=== PATIENT | female | born 1985 | race African-American/Black ===

== ENCOUNTER 2022-12-11 21:25 | Inpatient (IN) ==
[2022-12-11] MEDS ORDERED: LORazepam 2 MG/1 ML VIAL IV PRN (21:51)
[2022-12-11] MEDS ORDERED: levETIRAcetam 1,000 MG in 0.9 % SODIUM CHLORIDE 100 ML IV STA (21:51)
--- NOTE | 2022-12-11 21:59 | Emergency Department Note ---
History of Present Illness General Chief complaint: Seizure Stated complaint: SEIZURE Time Seen by Provider: 12/11/22 21:44 History of Present Illness This is a 36-year-old female presenting to the emergency department via EMS from home for evaluation of possible seizure episode. Patient is accompanied at bedside by her and friends. Family went to [facility] this evening and had a fairly normal evening. Upon returning home family went to bed, but according to the the patient began shaking while in bed. The tried to hold her, but she was not able to talk and the shaking continued before finally resolving. After the episode the patient was not able to speak and EMS was contacted. On arrival the patient does appear postictal, and is aphasic. She is able to nod her head with yes and no answers, but is not able to speak. The patient has not had any recent URI symptoms. She does not take any medication on a regular basis. She has never had a seizure before. Home Medications Medication Instructions Recorded Confirmed Type No Known Home Medications 12/11/22 12/11/22 History Allergies Allergy/AdvReac Type Severity Reaction Status Date / Time No Known Allergies Allergy Verified 12/11/22 22:21 Past Med/Surg History Medical History No chronic diseases present Surgical History No significant past surgical history Social History Smoking Status: Never smoker Feels Safe at Home: Yes Review of Systems A total of 10 systems reviewed and were otherwise negative Physical Exam Vital Signs Vital Signs - 24 hr 12/11/22 21:20 12/11/22 21:20 12/11/22 21:36 Temperature 37.1 C 37.1 C Temperature Source Oral Oral Pulse Rate 99 H 99 H Pulse Rate [Apical] 96 H Respiratory Rate 22 16 Respiratory Effort / Characteristics Non-Labored Spontaneous Non-Labored Spontaneous Respiratory Depth Normal Normal Blood Pressure 150/91 H Blood Pressure [Right Arm] 150/91 H Blood Pressure Mean 110 Blood Pressure Mean [Right Arm] 110 Pulse Oximetry 97 97 Oxygen Delivery Method Room Air Room Air Sepsis Recent Fever Within 48 Hours No Sepsis New/Unexplained Change in Mental Status No Sepsis Action Taken by Nursing No Action Required 12/11/22 23:01 12/11/22 23:12 12/11/22 23:12 Temperature Temperature Source Pulse Rate 84 87 Pulse Rate [Apical] Respiratory Rate 13 18 Respiratory Effort / Characteristics Respiratory Depth Blood Pressure 103/63 Blood Pressure [Right Arm] Blood Pressure Mean 76 Blood Pressure Mean [Right Arm] Pulse Oximetry Oxygen Delivery Method Sepsis Recent Fever Within 48 Hours Sepsis New/Unexplained Change in Mental Status Sepsis Action Taken by Nursing 12/11/22 23:15 12/11/22 23:15 12/11/22 23:30 Temperature Temperature Source Pulse Rate 90 Pulse Rate [Apical] Respiratory Rate 14 Respiratory Effort / Characteristics Respiratory Depth Blood Pressure 115/51 L 90/36 L Blood Pressure [Right Arm] Blood Pressure Mean 72 54 Blood Pressure Mean [Right Arm] Pulse Oximetry Oxygen Delivery Method Sepsis Recent Fever Within 48 Hours Sepsis New/Unexplained Change in Mental Status Sepsis Action Taken by Nursing 12/11/22 23:30 12/11/22 23:45 12/11/22 23:45 Temperature Temperature Source Pulse Rate 90 87 Pulse Rate [Apical] Respiratory Rate 14 19 Respiratory Effort / Characteristics Respiratory Depth Blood Pressure 92/58 L Blood Pressure [Right Arm] Blood Pressure Mean 69 Blood Pressure Mean [Right Arm] Pulse Oximetry Oxygen Delivery Method Sepsis Recent Fever Within 48 Hours Sepsis New/Unexplained Change in Mental Status Sepsis Action Taken by Nursing 12/12/22 00:05 12/12/22 00:15 12/12/22 00:15 Temperature Temperature Source Pulse Rate 82 81 Pulse Rate [Apical] Respiratory Rate 12 12 Respiratory Effort / Characteristics Respiratory Depth Blood Pressure 98/50 L Blood Pressure [Right Arm] Blood Pressure Mean 66 Blood Pressure Mean [Right Arm] Pulse Oximetry Oxygen Delivery Method Sepsis Recent Fever Within 48 Hours Sepsis New/Unexplained Change in Mental Status Sepsis Action Taken by Nursing 12/12/22 01:33 12/12/22 01:26 12/12/22 01:30 Temperature Temperature Source Pulse Rate 82 93 H Pulse Rate [Apical] Respiratory Rate 20 Respiratory Effort / Characteristics Respiratory Depth Blood Pressure 128/69 Blood Pressure [Right Arm] Blood Pressure Mean 88 Blood Pressure Mean [Right Arm] Pulse Oximetry Oxygen Delivery Method Sepsis Recent Fever Within 48 Hours Sepsis New/Unexplained Change in Mental Status Sepsis Action Taken by Nursing 12/12/22 01:30 Temperature Temperature Source Pulse Rate 76 Pulse Rate [Apical] Respiratory Rate 14 Respiratory Effort / Characteristics Respiratory Depth Blood Pressure Blood Pressure [Right Arm] Blood Pressure Mean Blood Pressure Mean [Right Arm] Pulse Oximetry Oxygen Delivery Method Sepsis Recent Fever Within 48 Hours Sepsis New/Unexplained Change in Mental Status Sepsis Action Taken by Nursing VITALS: Vitals are noted on the nurse's note and reviewed by myself. Vital signs stable. GENERAL: Black female who is unable to answer questions verbally. She is able to shake her head to yes and no answers. She does appear postictal. HEAD: Normocephalic atraumatic. EARS: External ear normal. External auditory canals clear, tympanic membranes pearly buck without erythema or effusion bilaterally. EYES: Pupils equal round and reactive to light and accommodation. Conjunctivae without injection, sclerae without icterus. Extraocular movements intact. NOSE: Patent, turbinates without inflammation or discharge. No tongue injury. MOUTH: Mucous membranes moist. Tonsils are not enlarged. Pharynx without erythema, blood, or exudate. Uvula midline. Airway patent. NECK: Supple without nuchal rigidity. No lymphadenopathy. No thyromegaly. Cervical spine is nontender. HEART: Regular rate and rhythm without murmurs gallops or rubs. LUNGS: Clear to auscultation bilaterally without wheezes, rales or rhonchi. No retractions or accessory muscle use. ABDOMEN: Positive normal bowel sounds x 4. Soft, nontender, without masses or organomegaly. No guarding or rebound tenderness. MUSCULOSKELETAL: No muscle atrophy, erythema, or edema noted. NEURO: Patient appears post ictal, but awake. Course Administered Medications Discontinued Medications Gadobutrol (Gadobutrol 65ml Vial) 11 ml IV ONCE ONE Stop: 12/12/22 01:14 Last Admin: 12/12/22 01:14 Dose: 11 ml Documented By: GLENN Sodium Chloride (Nss 1000ml) 1,000 mls @ 999 mls/hr IV .[id number] CHAKA Stop: 12/11/22 23:00 Last Infusion: 12/12/22 00:06 Dose: 0 mls/hr Documented By: Admin: 12/11/22 22:08 Dose: 999 mls/hr Documented By: EFRAÍN Levetiracetam 1,000 mg/ Sodium (Chloride) 110 mls @ 440 mls/hr IV NOW STA Stop: 12/11/22 22:05 Last Infusion: 12/11/22 22:51 Dose: 0 mls/hr Documented By: Admin: 12/11/22 22:07 Dose: 440 mls/hr Documented By: EFRAÍN Medical Decision Making Differential Diagnosis Differential diagnosis: Etiologies such as syncope, seizure, vasovagal event, infection, anemia, hypoglycemia, hypovolemia, electrolyte abnormalities, dysrhythmias, cardiac ischemia, cardiac tamponade, valvular heart disease, structural heart disease, seizure, vascular stenosis/dissection, pulmonary embolism, intracerebral event, toxicological process, neurologic event, as well as others were entertained. Laboratory Data 12/11/22 21:37 12/11/22 21:37 Lab Results 12/11/22 12/11/22 12/11/22 Range/Units 21:37 21:37 21:37 WBC 6.83 (4.8-10.8) K/ul RBC 4.22 (4.20-5.40) M/uL Hgb 11.9 L (12.0-16.0) g/dl Hct 37.3 (37.0-47.0) % MCV 88.4 (80.0-100.0) fL MCH 28.2 (25.0-34.0) pg MCHC 31.9 L (32.0-36.0) g/dL RDW Std Deviation 41.1 (36.4-46.3) fL RDW Coeff of Rodney 12.7 (11.5-14.5) % Plt Count 343 (130-400) K/uL MPV 9.8 (9.4-12.4) fL Immature Gran % (Auto) 0.4 % Neut % (Auto) 40.4 % Lymph % (Auto) 45.1 % Barry % (Auto) 11.6 % Eos % (Auto) 1.6 % Baso % (Auto) 0.9 % Neut # (Auto) 2.76 (1.40-6.50) K/uL Lymph # (Auto) 3.08 (1.2-3.4) K/uL Barry # (Auto) 0.79 H (0.11-0.59) K/uL Eos # (Auto) 0.11 (0-0.50) K/uL Baso # (Auto) 0.06 (0-0.2) K/uL Immature Gran # (Auto) 0.03 (0.01-0.20) K/uL Sodium 137 (136-145) mmol/L Potassium 3.7 (3.5-5.1) mmol/L Chloride 103 (98-107) mmol/L Carbon Dioxide 22 (21-32) mmol/L Anion Gap 12 H (3-11) BUN 12 (6-23) mg/dl Creatinine 0.75 (0.6-1.2) mg/dl Est Cr Clr Drug Dosing Not Reportable Est GFR ( Amer) 117.2 ml/min Est GFR (Non-Af Amer) 101.1 ml/min BUN/Creatinine Ratio 16.0 (10-20) Glucose 82 (70-99(Fasting)) mg/dl Lactate (0.4-2.0) mmol/L Calcium 9.0 (8.5-10.1) mg/dl Phosphorus 2.7 (2.5-4.9) mg/dl Magnesium 2.1 (1.7-2.4) mg/dl Total Bilirubin 0.7 (0.2-1.0) mg/dl AST 27 (13-39) U/L ALT 38 (7-52) U/L Alkaline Phosphatase 74 (34-104) U/L Lactate Dehydrogenase (86-244) U/L Total Creatine Kinase 456 H (26-192) U/L Troponin I High Sens 2.6 (0-14) pg/ml Total Protein 8.3 (6.0-8.3) gm/dl Albumin 4.6 (3.4-5.0) gm/dl Globulin 3.7 (2.5-4.0) gm/dl Albumin/Globulin Ratio 1.2 (0.9-2) TSH (0.300-4.500) uIu/ml HCG, Qual (Negative) Urine Color Urine Appearance (Clear) Urine pH (4.5-7.5) Ur Specific [place] (1.000-1.030) Urine Protein (Negative) Urine Glucose (UA) (Negative) Urine Ketones (Negative) Urine Blood (Negative) Urine Nitrite (Negative) Urine Bilirubin (Negative) Urine Urobilinogen (Negative) Ur Leukocyte Esterase (Negative) Urine WBC (Auto) (0-5) /hpf Urine RBC (Auto) (0-4) /hpf U Hyaline Cast (Auto) (0-5) /lpf U Epithel Cells (Auto) (0-5) /lpf Urine Bacteria (Auto) (Negative) Urine Opiates Screen (Neg) Ur Methadone, Qual (Neg) Urine Barbiturates (Neg) Ur Phencyclidine (PCP) (Neg) U Amphetamin/Meth Scrn (Neg) MDMA (Ecstasy) Screen (Neg) U Benzodiazepines Scrn (Neg) Ur Cocaine Metabolite (Neg) U Marijuana (THC) Screen (Neg) Ethyl Alcohol mg/dL < 10.0 (<10.0) mg/dl Adenovirus (PCR) (NotDetected) B. pertussis DNA (PCR) (NotDetected) B.parapertussis DNA PCR (NotDetected) Lyme Disease IgG Ab (Negative) Lyme Disease IgM Ab (Negative) C. pneumoniae DNA (PCR) (NotDetected) Coronavirus OC43 (PCR) (NotDetected) Coronavirus HKU1 (PCR) (NotDetected) Coronavirus 229E (PCR) (NotDetected) SARS-CoV-2 (PCR) (NotDetected) Coronavirus NL63 (PCR) (NotDetected) Human Metapneumovir PCR (NotDetected) Influenza Type A (PCR) (NotDetected) Influenza Type B (PCR) (NotDetected) M. pneumoniae (PCR) (NotDetected) Parainfluenza 1 (PCR) (NotDetected) Parainfluenza 2 (PCR) (NotDetected) Parainfluenza 3 (PCR) (NotDetected) Parainfluenza 4 (PCR) (NotDetected) RSV (PCR) (NotDetected) Entero/Rhino (PCR) (NotDetected) 12/11/22 12/11/22 12/11/22 Range/Units 21:37 21:37 21:37 WBC (4.8-10.8) K/ul RBC (4.20-5.40) M/uL Hgb (12.0-16.0) g/dl Hct (37.0-47.0) % MCV (80.0-100.0) fL MCH (25.0-34.0) pg MCHC (32.0-36.0) g/dL RDW Std Deviation (36.4-46.3) fL RDW Coeff of Rodney (11.5-14.5) % Plt Count (130-400) K/uL MPV (9.4-12.4) fL Immature Gran % (Auto) % Neut % (Auto) % Lymph % (Auto) % Barry % (Auto) % Eos % (Auto) % Baso % (Auto) % Neut # (Auto) (1.40-6.50) K/uL Lymph # (Auto) (1.2-3.4) K/uL Barry # (Auto) (0.11-0.59) K/uL Eos # (Auto) (0-0.50) K/uL Baso # (Auto) (0-0.2) K/uL Immature Gran # (Auto) (0.01-0.20) K/uL Sodium (136-145) mmol/L Potassium (3.5-5.1) mmol/L Chloride (98-107) mmol/L Carbon Dioxide (21-32) mmol/L Anion Gap (3-11) BUN (6-23) mg/dl Creatinine (0.6-1.2) mg/dl Est Cr Clr Drug Dosing Est GFR ( Amer) ml/min Est GFR (Non-Af Amer) ml/min BUN/Creatinine Ratio (10-20) Glucose (70-99(Fasting)) mg/dl Lactate (0.4-2.0) mmol/L Calcium (8.5-10.1) mg/dl Phosphorus (2.5-4.9) mg/dl Magnesium (1.7-2.4) mg/dl Total Bilirubin (0.2-1.0) mg/dl AST (13-39) U/L ALT (7-52) U/L Alkaline Phosphatase (34-104) U/L Lactate Dehydrogenase 197 (86-244) U/L Total Creatine Kinase (26-192) U/L Troponin I High Sens (0-14) pg/ml Total Protein (6.0-8.3) gm/dl Albumin (3.4-5.0) gm/dl Globulin (2.5-4.0) gm/dl Albumin/Globulin Ratio (0.9-2) TSH 1.408 (0.300-4.500) uIu/ml HCG, Qual Negative (Negative) Urine Color Urine Appearance (Clear) Urine pH (4.5-7.5) Ur Specific [place] (1.000-1.030) Urine Protein (Negative) Urine Glucose (UA) (Negative) Urine Ketones (Negative) Urine Blood (Negative) Urine Nitrite (Negative) Urine Bilirubin (Negative) Urine Urobilinogen (Negative) Ur Leukocyte Esterase (Negative) Urine WBC (Auto) (0-5) /hpf Urine RBC (Auto) (0-4) /hpf U Hyaline Cast (Auto) (0-5) /lpf U Epithel Cells (Auto) (0-5) /lpf Urine Bacteria (Auto) (Negative) Urine Opiates Screen (Neg) Ur Methadone, Qual (Neg) Urine Barbiturates (Neg) Ur Phencyclidine (PCP) (Neg) U Amphetamin/Meth Scrn (Neg) MDMA (Ecstasy) Screen (Neg) U Benzodiazepines Scrn (Neg) Ur Cocaine Metabolite (Neg) U Marijuana (THC) Screen (Neg) Ethyl Alcohol mg/dL (<10.0) mg/dl Adenovirus (PCR) (NotDetected) B. pertussis DNA (PCR) (NotDetected) B.parapertussis DNA PCR (NotDetected) Lyme Disease IgG Ab Negative (Negative) Lyme Disease IgM Ab Negative (Negative) C. pneumoniae DNA (PCR) (NotDetected) Coronavirus OC43 (PCR) (NotDetected) Coronavirus HKU1 (PCR) (NotDetected) Coronavirus 229E (PCR) (NotDetected) SARS-CoV-2 (PCR) (NotDetected) Coronavirus NL63 (PCR) (NotDetected) Human Metapneumovir PCR (NotDetected) Influenza Type A (PCR) (NotDetected) Influenza Type B (PCR) (NotDetected) M. pneumoniae (PCR) (NotDetected) Parainfluenza 1 (PCR) (NotDetected) Parainfluenza 2 (PCR) (NotDetected) Parainfluenza 3 (PCR) (NotDetected) Parainfluenza 4 (PCR) (NotDetected) RSV (PCR) (NotDetected) Entero/Rhino (PCR) (NotDetected) 12/11/22 12/11/22 12/11/22 Range/Units 22:19 22:19 23:19 WBC (4.8-10.8) K/ul RBC (4.20-5.40) M/uL Hgb (12.0-16.0) g/dl Hct (37.0-47.0) % MCV (80.0-100.0) fL MCH (25.0-34.0) pg MCHC (32.0-36.0) g/dL RDW Std Deviation (36.4-46.3) fL RDW Coeff of Rodney (11.5-14.5) % Plt Count (130-400) K/uL MPV (9.4-12.4) fL Immature Gran % (Auto) % Neut % (Auto) % Lymph % (Auto) % Barry % (Auto) % Eos % (Auto) % Baso % (Auto) % Neut # (Auto) (1.40-6.50) K/uL Lymph # (Auto) (1.2-3.4) K/uL Barry # (Auto) (0.11-0.59) K/uL Eos # (Auto) (0-0.50) K/uL Baso # (Auto) (0-0.2) K/uL Immature Gran # (Auto) (0.01-0.20) K/uL Sodium (136-145) mmol/L Potassium (3.5-5.1) mmol/L Chloride (98-107) mmol/L Carbon Dioxide (21-32) mmol/L Anion Gap (3-11) BUN (6-23) mg/dl Creatinine (0.6-1.2) mg/dl Est Cr Clr Drug Dosing Est GFR ( Amer) ml/min Est GFR (Non-Af Amer) ml/min BUN/Creatinine Ratio (10-20) Glucose (70-99(Fasting)) mg/dl Lactate 2.8 H* 2.2 H* (0.4-2.0) mmol/L Calcium (8.5-10.1) mg/dl Phosphorus (2.5-4.9) mg/dl Magnesium (1.7-2.4) mg/dl Total Bilirubin (0.2-1.0) mg/dl AST (13-39) U/L ALT (7-52) U/L Alkaline Phosphatase (34-104) U/L Lactate Dehydrogenase (86-244) U/L Total Creatine Kinase (26-192) U/L Troponin I High Sens (0-14) pg/ml Total Protein (6.0-8.3) gm/dl Albumin (3.4-5.0) gm/dl Globulin (2.5-4.0) gm/dl Albumin/Globulin Ratio (0.9-2) TSH (0.300-4.500) uIu/ml HCG, Qual (Negative) Urine Color Urine Appearance (Clear) Urine pH (4.5-7.5) Ur Specific [place] (1.000-1.030) Urine Protein (Negative) Urine Glucose (UA) (Negative) Urine Ketones (Negative) Urine Blood (Negative) Urine Nitrite (Negative) Urine Bilirubin (Negative) Urine Urobilinogen (Negative) Ur Leukocyte Esterase (Negative) Urine WBC (Auto) (0-5) /hpf Urine RBC (Auto) (0-4) /hpf U Hyaline Cast (Auto) (0-5) /lpf U Epithel Cells (Auto) (0-5) /lpf Urine Bacteria (Auto) (Negative) Urine Opiates Screen (Neg) Ur Methadone, Qual (Neg) Urine Barbiturates (Neg) Ur Phencyclidine (PCP) (Neg) U Amphetamin/Meth Scrn (Neg) MDMA (Ecstasy) Screen (Neg) U Benzodiazepines Scrn (Neg) Ur Cocaine Metabolite (Neg) U Marijuana (THC) Screen (Neg) Ethyl Alcohol mg/dL (<10.0) mg/dl Adenovirus (PCR) Not Detected (NotDetected) B. pertussis DNA (PCR) Not Detected (NotDetected) B.parapertussis DNA PCR Not Detected (NotDetected) Lyme Disease IgG Ab (Negative) Lyme Disease IgM Ab (Negative) C. pneumoniae DNA (PCR) Not Detected (NotDetected) Coronavirus OC43 (PCR) Not Detected (NotDetected) Coronavirus HKU1 (PCR) Not Detected (NotDetected) Coronavirus 229E (PCR) Not Detected (NotDetected) SARS-CoV-2 (PCR) Not Detected (NotDetected) Coronavirus NL63 (PCR) Not Detected (NotDetected) Human Metapneumovir PCR Not Detected (NotDetected) Influenza Type A (PCR) Not Detected (NotDetected) Influenza Type B (PCR) Not Detected (NotDetected) M. pneumoniae (PCR) Not Detected (NotDetected) Parainfluenza 1 (PCR) Not Detected (NotDetected) Parainfluenza 2 (PCR) Not Detected (NotDetected) Parainfluenza 3 (PCR) Not Detected (NotDetected) Parainfluenza 4 (PCR) Not Detected (NotDetected) RSV (PCR) Not Detected (NotDetected) Entero/Rhino (PCR) Not Detected (NotDetected) 12/12/22 12/12/22 Range/Units 00:05 00:05 WBC (4.8-10.8) K/ul RBC (4.20-5.40) M/uL Hgb (12.0-16.0) g/dl Hct (37.0-47.0) % MCV (80.0-100.0) fL MCH (25.0-34.0) pg MCHC (32.0-36.0) g/dL RDW Std Deviation (36.4-46.3) fL RDW Coeff of Rodney (11.5-14.5) % Plt Count (130-400) K/uL MPV (9.4-12.4) fL Immature Gran % (Auto) % Neut % (Auto) % Lymph % (Auto) % Barry % (Auto) % Eos % (Auto) % Baso % (Auto) % Neut # (Auto) (1.40-6.50) K/uL Lymph # (Auto) (1.2-3.4) K/uL Barry # (Auto) (0.11-0.59) K/uL Eos # (Auto) (0-0.50) K/uL Baso # (Auto) (0-0.2) K/uL Immature Gran # (Auto) (0.01-0.20) K/uL Sodium (136-145) mmol/L Potassium (3.5-5.1) mmol/L Chloride (98-107) mmol/L Carbon Dioxide (21-32) mmol/L Anion Gap (3-11) BUN (6-23) mg/dl Creatinine (0.6-1.2) mg/dl Est Cr Clr Drug Dosing Est GFR ( Amer) ml/min Est GFR (Non-Af Amer) ml/min BUN/Creatinine Ratio (10-20) Glucose (70-99(Fasting)) mg/dl Lactate (0.4-2.0) mmol/L Calcium (8.5-10.1) mg/dl Phosphorus (2.5-4.9) mg/dl Magnesium (1.7-2.4) mg/dl Total Bilirubin (0.2-1.0) mg/dl AST (13-39) U/L ALT (7-52) U/L Alkaline Phosphatase (34-104) U/L Lactate Dehydrogenase (86-244) U/L Total Creatine Kinase (26-192) U/L Troponin I High Sens (0-14) pg/ml Total Protein (6.0-8.3) gm/dl Albumin (3.4-5.0) gm/dl Globulin (2.5-4.0) gm/dl Albumin/Globulin Ratio (0.9-2) TSH (0.300-4.500) uIu/ml HCG, Qual (Negative) Urine Color Yellow Urine Appearance Clear (Clear) Urine pH 7.0 (4.5-7.5) Ur Specific [place] 1.012 (1.000-1.030) Urine Protein Trace H (Negative) Urine Glucose (UA) Negative (Negative) Urine Ketones Negative (Negative) Urine Blood Trace H (Negative) Urine Nitrite Positive A (Negative) Urine Bilirubin Negative (Negative) Urine Urobilinogen Negative (Negative) Ur Leukocyte Esterase Trace H (Negative) Urine WBC (Auto) 1-5 (0-5) /hpf Urine RBC (Auto) 0-4 (0-4) /hpf U Hyaline Cast (Auto) 1-5 (0-5) /lpf U Epithel Cells (Auto) 20-30 H (0-5) /lpf Urine Bacteria (Auto) 4+ H (Negative) Urine Opiates Screen Neg (Neg) Ur Methadone, Qual Neg (Neg) Urine Barbiturates Neg (Neg) Ur Phencyclidine (PCP) Neg (Neg) U Amphetamin/Meth Scrn Neg (Neg) MDMA (Ecstasy) Screen Neg (Neg) U Benzodiazepines Scrn Neg (Neg) Ur Cocaine Metabolite Neg (Neg) U Marijuana (THC) Screen Neg (Neg) Ethyl Alcohol mg/dL (<10.0) mg/dl Adenovirus (PCR) (NotDetected) B. pertussis DNA (PCR) (NotDetected) B.parapertussis DNA PCR (NotDetected) Lyme Disease IgG Ab (Negative) Lyme Disease IgM Ab (Negative) C. pneumoniae DNA (PCR) (NotDetected) Coronavirus OC43 (PCR) (NotDetected) Coronavirus HKU1 (PCR) (NotDetected) Coronavirus 229E (PCR) (NotDetected) SARS-CoV-2 (PCR) (NotDetected) Coronavirus NL63 (PCR) (NotDetected) Human Metapneumovir PCR (NotDetected) Influenza Type A (PCR) (NotDetected) Influenza Type B (PCR) (NotDetected) M. pneumoniae (PCR) (NotDetected) Parainfluenza 1 (PCR) (NotDetected) Parainfluenza 2 (PCR) (NotDetected) Parainfluenza 3 (PCR) (NotDetected) Parainfluenza 4 (PCR) (NotDetected) RSV (PCR) (NotDetected) Entero/Rhino (PCR) (NotDetected) Imaging Data Radiologist's Impression: Head CT 12/11/22 21:51 Exam(s): CT HEAD Without Contrast EXAM: CT Head Without Intravenous Contrast CLINICAL HISTORY: Reason for exam: Seizure. Post ictal.. TECHNIQUE: Axial computed tomography images of the head/brain without intravenous contrast. COMPARISON: No relevant prior studies available. FINDINGS: Brain: Remote ischemic injuries of the right parietal lobe with encephalomalacia and gliosis, which likely represents the nidus for seizure activity. No hemorrhage. No significant white matter disease. No edema. Ventricles: Unremarkable. No ventriculomegaly. Bones/joints: Unremarkable. No acute fracture. Soft tissues: Unremarkable. Sinuses: Chronic left maxillary sinusitis. No acute sinusitis. Mastoid air cells: Unremarkable as visualized. No mastoid effusion. IMPRESSION: No evidence of acute intracranial pathology. Remote ischemic injuries of the right parietal lobe with encephalomalacia and gliosis, likely representing the nidus of seizure activity. Electronically signed by: Andria Oshea MD 12/11/22 23:45 PM Brain MRI 12/12/22 00:11 Exam(s): MRI HEAD W/WO Contrast IV Amt: 11cc gadavist EXAM: MR Head Without and With Intravenous Contrast CLINICAL HISTORY: Reason for exam: Seizure. TECHNIQUE: Magnetic resonance images of the head/brain without and with intravenous contrast in multiple planes. CONTRAST: Patient received 11cc gadavist of IV contrast COMPARISON: Comparison is made to prior noncontrast head CT from December 11, 2022. FINDINGS: Brain: Remote ischemic injuries of the right temporal, parietal and occipital lobes with encephalomalacia and gliosis. No mass. No hemorrhage. No acute infarct. No evidence of abnormal enhancement. Ventricles: Unremarkable. No ventriculomegaly. Bones/joints: Unremarkable. Sinuses: Chronic left maxillary and ethmoid sinusitis. No acute sinusitis. Mastoid air cells: Unremarkable as visualized. No mastoid effusion. Orbits: Unremarkable as visualized. IMPRESSION: Normal no evidence of acute intracranial pathology. Remote ischemic injuries of the right parietal, occipital and temporal lobes with encephalomalacia and gliosis. Electronically signed by: Andria Oshea MD 12/12/22 01:44 AM [facility] Narrative Physical exam and history were performed. Nursing notes, EMR, and Medication List were personally reviewed. No social concerns were identified as barriers to patients care. Patient appears to have had a seizure prehospital. She arrives via EMS and appears postictal on my arrival to the room. History is primarily provided by the . IV access was established and labs were obtained. Patient was cared for under seizure precautions. She was given IV Keppra and as needed Ativan was ordered. Patient was hydrated with normal saline. An order was placed for continuous cardiac monitoring. The monitor shows a rate of 82 with normal sinus rhythm. Patient's blood work is as above and was reviewed. She does not have a significantly elevated white blood cell count, gross anemia, bandemia, or significant electrolyte imbalance. Transaminases are not diagnostic. Lactic is elevated at 2.8. CK is slightly elevated at over 400. Troponin is negative. Bio fire is negative. CT scan was performed and informally evaluated by myself while formally being read by radiology. CT scan is concerning for old ischemic findings that may be the cause of her stroke. Case was discussed with my attending, Dr. Rojas, who remained involved in care and decision making. Additionally we did reach out to Dr. Stephen, neurology, who does recommend MRI with and without contrast. MRI was performed and is essentially unchanged from the CT. The case was discussed with the [facility] ospitalist team as the patient does not appear well for discharge home. Please see their dictation for further patient course, plan, and disposition. The chart was completed utilizing [employer] Voice Recognition Software. Grammatical errors, random word insertions, pronoun errors, and incomplete sentences are an occasional consequence of this system due to software limitations, ambient noise, and hardware issues. Any formal questions or concerns about the content, text, or information contained within the body of this dictation should be directly addressed to the provider for clarification. . Impression & Plan New onset seizure, Post-ictal state Discharge Plan Visit Data Chief Complaint: Seizure Stated Complaint: SEIZURE ED Provider: Hammad Doll ED Midlevel Provider: Tal Christiansen Discharge Problem: New onset seizure, Post-ictal state Forms Stand Alone Forms: [employer] Prescriptions Prescriptions: No Action No Known Home Medications Referrals Referrals: PCP,NO [Physician] -
[2022-12-11] MEDS ORDERED: SODIUM CHLORIDE 0.9% 1000ML 1,000 ML IV SCH (22:00)
[2022-12-11 22:25] LABS: Albumin Level 4.6 gm/dl (3.4-5.0); Anion Gap 12 (3-11); Bilirubin,Total 0.7 mg/dl (0.2-1.0); Carbon Dioxide 22 mmol/L (21-32); Chloride 103 mmol/L (98-107); Magnesium 2.1 mg/dl (1.7-2.4); Potassium 3.7 mmol/L (3.5-5.1); Sodium 137 mmol/L (136-145)
[2022-12-11 22:29] LABS: Pregnancy Test, Serum Negative (Negative)
[2022-12-11 22:31] LABS: Alanine Aminotransferase 38 U/L (7-52); Albumin Globulin Ratio 1.2 (0.9-2); Alkaline Phosphatase 74 U/L (34-104); Aspartate Aminotransferase 27 U/L (13-39); Blood Urea Nitrogen 12 mg/dl (6-23); Creatine Kinase 456 U/L (26-192); Est GFR (African American) 117.2 ml/min; Est GFR (Non-African American) 101.1 ml/min; Globulin 3.7 gm/dl (2.5-4.0); Glucose 82 mg/dl (70-99(Fasting)); Phosphorus 2.7 mg/dl (2.5-4.9); Total Protein 8.3 gm/dl (6.0-8.3)
[2022-12-11 22:52] LABS: Troponin I High Sensitivity 2.6 pg/ml (0-14)
[2022-12-11 22:53] LABS: Lyme Ab IgG w/WB Rflx Negative (Negative); Lyme Ab IgM w/WB Rflx Negative (Negative)
[2022-12-11 22:56] LABS: Basophils # (auto) 0.06 K/uL (0-0.2); Basophils % (auto) 0.9 %; Eosinophils # (auto) 0.11 K/uL (0-0.50); Eosinophils % (auto) 1.6 %; Hematocrit (blood only) 37.3 % (37.0-47.0); Hemoglobin 11.9 g/dl (12.0-16.0); Immature Granulocytes # (auto) 0.03 K/uL (0.01-0.20); Immature Granulocytes % (auto) 0.4 %; Lymphocytes # (auto) 3.08 K/uL (1.2-3.4); Lymphocytes % (auto) 45.1 %; Mean Corpuscular Hemoglobin 28.2 pg (25.0-34.0); Mean Corpuscular Hgb Conc 31.9 g/dL (32.0-36.0); Mean Corpuscular Volume 88.4 fL (80.0-100.0); Mean Platelet Volume 9.8 fL (9.4-12.4); Monocytes # (auto) 0.79 K/uL (0.11-0.59); Monocytes % (auto) 11.6 %; Neutrophils # (auto) 2.76 K/uL (1.40-6.50); Neutrophils % (auto) 40.4 %; Platelet Count 343 K/uL (130-400); RDW Coefficient of Variation 12.7 % (11.5-14.5); RDW Standard Deviation 41.1 fL (36.4-46.3); Red Blood Count 4.22 M/uL (4.20-5.40); White Blood Count 6.83 K/ul (4.8-10.8)
[2022-12-11 23:28] LABS: Adenovirus PCR Not Detected (NotDetected); Bordetella parapertussis PCR Not Detected (NotDetected); Bordetella pertussis PCR Not Detected (NotDetected); Chlamydia pneumoniae PCR Not Detected (NotDetected); Coronavirus 229E PCR Not Detected (NotDetected); Coronavirus CoV-2 (COVID19)PCR Not Detected (NotDetected); Coronavirus HKU1 PCR Not Detected (NotDetected); Coronavirus NL63 PCR Not Detected (NotDetected); Coronavirus OC43PCR Not Detected (NotDetected); Human Metapneumovirus PCR Not Detected (NotDetected); Influenza A PCR Not Detected (NotDetected); Influenza B PCR Not Detected (NotDetected); Mycoplasma pneumoniae PCR Not Detected (NotDetected); Parainfluenza Virus 1 PCR Not Detected (NotDetected); Parainfluenza Virus 2 PCR Not Detected (NotDetected); Parainfluenza Virus 3 PCR Not Detected (NotDetected); Parainfluenza Virus 4 PCR Not Detected (NotDetected); Respiratory Syncytial VirusPCR Not Detected (NotDetected); Rhinovirus/Enterovirus PCR Not Detected (NotDetected)
--- NOTE | 2022-12-11 23:46 | CT Scan Report ---
Exam(s): CT HEAD Without Contrast EXAM: CT Head Without Intravenous Contrast CLINICAL HISTORY: Reason for exam: Seizure. Post ictal.. TECHNIQUE: Axial computed tomography images of the head/brain without intravenous contrast. COMPARISON: No relevant prior studies available. FINDINGS: Brain: Remote ischemic injuries of the right parietal lobe with encephalomalacia and gliosis, which likely represents the nidus for seizure activity. No hemorrhage. No significant white matter disease. No edema. Ventricles: Unremarkable. No ventriculomegaly. Bones/joints: Unremarkable. No acute fracture. Soft tissues: Unremarkable. Sinuses: Chronic left maxillary sinusitis. No acute sinusitis. Mastoid air cells: Unremarkable as visualized. No mastoid effusion. IMPRESSION: No evidence of acute intracranial pathology. Remote ischemic injuries of the right parietal lobe with encephalomalacia and gliosis, likely representing the nidus of seizure activity. Electronically signed by: Andria Oshea MD 12/11/22 23:45 PM
[2022-12-12 00:37] LABS: Appearance Urine Clear (Clear); Bacteria Urine Automated 4+ (Negative); Bilirubin Urine Negative (Negative); Blood Urine Trace (Negative); Color Urine Yellow; Epithelial Cell Urine Auto 20-30 /lpf (0-5); Glucose Urine UA Negative (Negative); Ketones Urine Negative (Negative); Leukocyte Esterase Urine Trace (Negative); Nitrite Urine Positive (Negative); Protein Urine Trace (Negative); RBC Urine Automated 0-4 /hpf (0-4); Specific Gravity Urine 1.012 (1.000-1.030); Urobilinogen Urine Negative (Negative)
[2022-12-12 00:53] LABS: Amphetamines+Metham, Urine Neg (Neg); Barbiturates, Urine Neg (Neg); Benzodiazepine, Urine Neg (Neg); Cocaine, Urine Neg (Neg); MDMA (Ecstacy), Urine Neg (Neg); Methadone, Urine Neg (Neg); Opiate, Urine Neg (Neg); Phencyclidine, Urine Neg (Neg)
[2022-12-12] MEDS ORDERED: GADOBUTROL 65ML VIAL IV ONE (01:13)
--- NOTE | 2022-12-12 01:45 | Magnetic Resonance Report ---
Exam(s): MRI HEAD W/WO Contrast IV Amt: 11cc gadavist EXAM: MR Head Without and With Intravenous Contrast CLINICAL HISTORY: Reason for exam: Seizure. TECHNIQUE: Magnetic resonance images of the head/brain without and with intravenous contrast in multiple planes. CONTRAST: Patient received 11cc gadavist of IV contrast COMPARISON: Comparison is made to prior noncontrast head CT from December 11, 2022. FINDINGS: Brain: Remote ischemic injuries of the right temporal, parietal and occipital lobes with encephalomalacia and gliosis. No mass. No hemorrhage. No acute infarct. No evidence of abnormal enhancement. Ventricles: Unremarkable. No ventriculomegaly. Bones/joints: Unremarkable. Sinuses: Chronic left maxillary and ethmoid sinusitis. No acute sinusitis. Mastoid air cells: Unremarkable as visualized. No mastoid effusion. Orbits: Unremarkable as visualized. IMPRESSION: Normal no evidence of acute intracranial pathology. Remote ischemic injuries of the right parietal, occipital and temporal lobes with encephalomalacia and gliosis. Electronically signed by: Andria Oshea MD 12/12/22 01:44 AM
[2022-12-12] MEDS ORDERED: LORazepam 2 MG/1 ML VIAL IV PRN (02:46)
[2022-12-12] MEDS ORDERED: ACETAMINOPHEN 325 MG TAB PO PRN (02:46)
[2022-12-12] MEDS ORDERED: NITROGLYCERIN SL 0.4 MG/TAB TAB SL PRN (02:46)
[2022-12-12] MEDS: cefTRIAXone SODIUM 2,000 MG in DEXTROSE 5% 50 ML IV SCH (03:36)
[2022-12-12] MEDS: SODIUM CHLORIDE 0.9% 1000ML 1,000 ML IV SCH ×3 (03:36→21:06)
--- NOTE | 2022-12-12 03:57 | History and Physical Report ---
DATE OF ADMISSION: 12/11/2022. CHIEF COMPLAINT: Seizure episode. HISTORY OF PRESENT ILLNESS: This is a 36-year-old female with past medical history significant for chronic hepatitis B, currently under observation; history of hiatal hernia, presents with seizure-like episode. is in the room. They went to religious and came home and she was lying down on the sofa. Around 8:30 p.m., suddenly she was shaking her body, lasted for several minutes and after that she not talking, semed unresponsive. Called EMS and was brought to hospital.. does not think that she has urine incontinence. She never had these episodes before. She was active. She was ambulating fine. No fevers, no cough, no complaints of any pain. When the patient came to the ER, seemed to be mostly not talking, seemed to be in postictal state. Currently, the patient is speaking in low voices, could tell her name, knows that she is in the hospital, could tell today's date. She says she has mild headache and she has mild left lower quadrant abdominal pain. Denies any chest pain or denies any nausea or cough, afebrile. Says she has generalized weakness and feeling very weak.Hemodynamically stable. ALLERGIES: No known drug allergies. PAST MEDICAL HISTORY: As mentioned above. PAST SURGICAL HISTORY: , EGD. MEDICATIONS: No medications. FAMILY HISTORY: Significant for no known problems of father or mother as per the EPIC . SOCIAL HISTORY: , no smoking, no alcohol, no drug use. REVIEW OF SYSTEMS: As per HPI. Could not get complete review of systems as the patient is somewhat slow to answer. PHYSICAL EXAMINATION: GENERAL: The patient is alert, awake, and oriented, speaking in low volumes. VITAL SIGNS: Temperature 37.1, pulse 73, respiratory rate 12, blood pressure 106/52, oxygen 98% on room air. HEENT: Pupils equal, round and reactive to light. Extraocular muscles intact. Oral mucosa moist. NECK: No JVD or neck masses. CARDIOVASCULAR: S1 and S2 heard. Regular rate and rhythm. No murmur, no gallop. RESPIRATORY SYSTEM: Normal AP diameter. No accessory muscle use. No wheezing or crackles. ABDOMEN: Soft, bowel sounds present. Mild left lower quadrant tenderness. No guarding. No rigidity, no distention. CENTRAL NERVOUS SYSTEM: Alert, awake, and oriented x3, speaking in very low voices. No facial droop. Obeys simple commands, moving all extremities. Hand supervisor firearms is very weak. Coordination of movements are okay. EXTREMITIES: No edema, no erythema. LABORATORY DATA: WBC 6.8, hemoglobin 11.9, hematocrit 37.3, platelets 343. Sodium 137, potassium 3.7, chloride 103, bicarbonate 22, BUN 12, creatinine 0.75, serum glucose 82. Lactate 2.8, repeat is 2.2. Calcium 9, phosphorus 2.7, magnesium 2.1, total bilirubin 0.7, AST 27, ALT 38, alkaline phosphatase 74. Lactate dehydrogenase 197. Total creatine kinase 456. Troponin I high sensitivity 2.6. TSH is 1.2. HCG qualitative negative. Urinalysis, positive for nitrite and leukocyte esterase and +4 bacteria. Urine drug screen negative. Ethyl alcohol less than 10. Respiratory BioFire negative. IMAGING DATA: CT of the head showing no evidence of acute intracranial pathology, remote ischemic injury to the right parietal lobe with encephalomalacia and gliosis likely representing nidus for of seizure activity. Brain MRI scan with or without contrast normal. No evidence of acute intracranial pathology, remote ischemic injuries of the right parietal, occipital and temporal lobes with encephalomalacia and gliosis. Chest x-ray, no acute findings. EKG: Normal sinus rhythm at a rate of 98, QTc of 482, no acute ST changes seen. ASSESSMENT AND PLAN: This is a 36-year-old female who presents with seizure activity. 1. Seizures of first episode. CT of the head showing remote ischemic injury of the right parietal lobe with encephalomalacia and gliosis likely representing source for seizure activity. Brain MRI with and without contrast also done MRI also showed no acute findings, but showing remote ischemic injuries of the right parietal, occipital, temporal lobes with encephalomalacia and gliosis. ER loaded her with Keppra 1 gram. We will continue with IV Keppra 500 mg b.i.d., IV Ativan p.r.n. for breakthrough seizures. Seizure precautions. We will keep her n.p.o. for now. Admit to tele floor. Consult neurology in the a.m. for further recommendation. We will get an EEG. 2. Urinary tract infection. Starting on Rocephin. We will follow the cultures. 3. Elevated lactate mostly from the above. IV fluids. We will follow the repeat lactic acid levels. 4. History of chronic hepatitis B, currently following with GI, under observation. 5. Deep venous thrombosis prophylaxis. She will be placed on Lovenox. DISPOSITION: Closely monitor in tele floor. Level 1 full code. Expect to discharge home and follow with family doctor. Job ID: [id number] MTDD
[2022-12-12 06:05] LABS: Basophils # (auto) 0.06 K/uL (0-0.2); Basophils % (auto) 0.8 %; Eosinophils # (auto) 0.06 K/uL (0-0.50); Eosinophils % (auto) 0.8 %; Hematocrit (blood only) 33.5 % (37.0-47.0); Hemoglobin 10.8 g/dl (12.0-16.0); Immature Granulocytes # (auto) 0.02 K/uL (0.01-0.20); Immature Granulocytes % (auto) 0.3 %; Lymphocytes # (auto) 2.56 K/uL (1.2-3.4); Lymphocytes % (auto) 32.7 %; Mean Corpuscular Hemoglobin 28.3 pg (25.0-34.0); Mean Corpuscular Hgb Conc 32.2 g/dL (32.0-36.0); Mean Corpuscular Volume 87.7 fL (80.0-100.0); Mean Platelet Volume 9.5 fL (9.4-12.4); Monocytes # (auto) 0.87 K/uL (0.11-0.59); Monocytes % (auto) 11.1 %; Neutrophils # (auto) 4.27 K/uL (1.40-6.50); Neutrophils % (auto) 54.3 %; Platelet Count 283 K/uL (130-400); RDW Coefficient of Variation 12.8 % (11.5-14.5); RDW Standard Deviation 40.6 fL (36.4-46.3); Red Blood Count 3.82 M/uL (4.20-5.40); White Blood Count 7.84 K/ul (4.8-10.8)
[2022-12-12 06:13] LABS: Anion Gap 3 (3-11); BUN Creatinine Ratio 12.5 (10-20); Blood Urea Nitrogen 8 mg/dl (6-23); Calcium 8.5 mg/dl (8.5-10.1); Carbon Dioxide 25 mmol/L (21-32); Chloride 109 mmol/L (98-107); Est GFR (African American) 131.2 ml/min; Est GFR (Non-African American) 113.2 ml/min; Glucose 101 mg/dl (70-99(Fasting)); Magnesium 2.2 mg/dl (1.7-2.4); Potassium 3.8 mmol/L (3.5-5.1); Sodium 137 mmol/L (136-145)
--- NOTE | 2022-12-12 07:38 | XRay Report ---
XR chest 1V portable CLINICAL HISTORY: seizure COMPARISON STUDY: No previous studies for comparison. FINDINGS: Lung volumes are mildly diminished. This may reflect hypoventilatory study. There is no pne umothorax or pleural effusion. Cardiac size is within normal limits given technique. There is promine nce of the interstitium. IMPRESSION: Prominence of the cardiac silhouette and interstitium, likely technical. No definite acu te findings. ACT 112: Negative or not required by law. Electronically signed by: Landon Keys M.D. 12/12/2022 7:36 AM
--- NOTE | 2022-12-12 08:33 | Communication Note ---
Date of Service: December 12, 2022 Patient admitted on december 12 2022. Thank you
[2022-12-12] MEDS: ENOXAPARIN INJ 40 MG/0.4 ML SYR SQ SCH (08:47)
[2022-12-12] MEDS: levETIRAcetam 500 MG in 0.9 % SODIUM CHLORIDE 100 ML IV SCH ×2 (08:48→21:06)
--- NOTE | 2022-12-12 10:34 | Neurology Consultation ---
Date of Consultation December 12, 2022 Assessment & Plan (1) New onset seizure: (2) Abnormal MRI of head: Plan 36-year-old female presenting with first ever convulsive episode that occurred while asleep. CT of the head and brain MRI reveal areas of chronic cystic encephalomalacia within the right occipital lobe and right temporal lobe, with associated enlargement of the posterior right lateral ventricle. Both the patient and her spouse were apparently aware that she had this type of abnormality on a previous brain scan (CT) done about 2 years ago for what sounds like migrainous headache while they were living in the [place]. She does not have a known history of clinical stroke or head injury. Either way, I think the differential diagnosis here would include a remote history of cryptogenic stroke, possible or intrauterine stroke, or even remote infection or head injury. These lesions likely increase her risk for seizures. Yet, she has never had a prior clinical seizure, at least as far as the patient or her spouse are aware. Upon further questioning, her recent nocturnal seizure episode was not grossly focal, another was, was not characterized by tonic stiffening or posturing of the left arm or leg, or associated head or eye deviation to the left. I do agree with treatment with an anticonvulsant medication at this time. We will continue with Keppra, may continue with Keppra 500 mg p.o. twice daily. I do not think an urgent inpatient EEG is necessary for this patient at this time. Would rather she obtain a good outpatient study, should be able to get completed within the next 1 to 2 weeks. No driving for the time being. A report should be filed if not already done so. Agree with inpatient stroke evaluation, although again, the above findings are chronic and not clearly related to stroke with additional differential diagnosis as described above. Would therefore recommend CT angiography of the head and neck and/or carotid ultrasound, transthoracic echocardiography, with bubble study, telemetry monitoring. We will check a lipid panel. Consider starting daily low-dose aspirin. Would recommend a hypercoagulable panel. Would also consider outpatient mobile cardiac outpatient telemetry after discharge. Patient may follow-up with me in clinic in 2 to 3 weeks after discharge. Above management discussed with Dr. Salazar, hospitalist. History of Present Illness Reason for Consultation: seizure Requesting Physician: Dr. Magallanes Attending Physician: Angelia Salazar MD History of Present Illness The patient is a 36-year-old female who presented to the emergency department overnight for new onset seizure. The event occurred while she was sleeping and was witnessed by her spouse. She apparently stiffened up and started to convulse, the episode lasted for only a few minutes and resolved. She did bite her tongue, no incontinence. She had been confused and lethargic afterwards, with some speech alteration but is significantly improved this morning. She did complain of a slight headache this morning and is slightly lethargic, but is otherwise at baseline. She has never had a seizure episode in the past. She does endorse a history of occasional migrainous headache, perhaps only 1 episode per month, often preceded by perception of flashing lights. Patient's spouse was present at bedside, in the emergency department, at the time of my assessment of her. A CT of the head was negative for hemorrhage or acute process although there are areas of encephalomalacia and gliosis within the right parietal lobe potentially consistent with old infarct or injury. This finding was again observed on the follow-up brain MRI. The MRI was negative for acute abnormality, and again, with evidence of remote injury, probably ischemic, within the right parietal, occipital, and temporal lobes with associated encephalomalacia and gliosis. I did independently review these images and was able to identify these findings as described by the interpreting radiologist. There is some compensatory enlargement of the posterior horn of the right lateral ventricle. The identified areas of encephalomalacia have a cystic characteristic. Upon further questioning, the patient and her spouse indicate that while they were living in the , about 2 years ago, she was evaluated for headaches and had a CT of the head at that time that had also revealed a chronic appearing areas of encephalomalacia, possibly old infarcts as described above. There were apparently some plans for additional follow-up imaging although never done as they subsequently moved to [facility]. The patient does not recall any history of remote or childhood trauma. Again, no history of seizures. No known history of injury or developmental delay, at least as far as patient can recall. Allergies Allergy/AdvReac Type Severity Reaction Status Date / Time No Known Allergies Allergy Verified 12/11/22 22:21 Home Medications Medication Instructions Recorded Confirmed Type No Known Home Medications 12/11/22 12/11/22 History Patient History Medical History No chronic diseases present Surgical History No significant past surgical history Social History Smoking Status: Never smoker Hx Alcohol Use: No Hx Substance Use: No Preferred Language: Burkinan Communication Ability: Effective Rag Willow Operator Required: No Beliefs That Will Affect Care: None Current Living Situation: Spouse and Family Feels Safe at Home: Yes Assistive Devices: None Review of Systems Constitutional: no fever and no chills Eyes: no blind spots and no diplopia Ear, Nose, Mouth, Throat: no hearing loss Respiratory: no cough and no dyspnea Cardiovascular: no chest pain and no palpitations Gastrointestinal: no nausea and no vomiting Genitourinary: no dysuria Musculoskeletal: no back pain, no neck pain and no myalgia Integumentary: no rash and no lesions Neurologic: as per Subjective / HPI, + seizure-like activity, + headache(s) and + confusion Psychiatric: no depression and no anxiety Hematologic / Lymphatic: no easy bleeding and no easy bruising Exam (Neuro) Constitutional: well developed and well nourished; no acute distress Eyes: normal visual stein by confrontation, PERRL, normal accommodation and EOM intact bilaterally; no fundoscopic abnormality, no nystagmus and no papilledema Cardiovascular: Vessels: normal carotid upstroke; no carotid bruit Neurologic: Oriented to:: Person, Place and Time Memory: Short Term Intact and Remote Intact Attention: Concentration Intact; negative Span Intact (Mild inattentiveness noted) Language: Naming Objects and Repeating Phrases Speech Fluency: negative Dysarthria Speech Aphasia: negative Aphasia Fund of Knowledge: Current Events, Past History and Vocabulary Cranial Nerves: Normal II (Visual stein full to confrontation, visual acuity normal), III, IV, (Pupils equal round reactive to light and accommodation, eye movements normal), V (Facial sensation intact), VII (There is no facial droop or weakness), VIII (Hearing intact), IX, X (Palate elevates to midline), XI (Shoulder shrug intact) and XII (Tongue protrudes to midline) Motor Strength: Normal Lower Extremities and Normal Upper Extremities; negative Pronator Drift Motor Tone: Normal Lower Extremities and Normal Upper Extremities Muscle Bulk/Involuntary Movements: No Involuntary Movements; negative Muscle Atrophy Sensation: Light Touch Intact, Pain/Temperature Intact, Vibration Intact and Proprioception Intact Coordination: Normal; negative Limited Balance, Dysdiadochokinesia, Finger-Nose Abnormal or Heel-Burton Abnormal Deep Tendon Reflexes: Rt Triceps: 2+, Lt Triceps: 2+, Rt Biceps: 2+, Lt Biceps: 2+, Rt Brachioradialis: 2+, Lt Brachioradialis: 2+, Rt Patellar: 2+, Lt Patellar: 2+, Rt Ankle: 2+ and Lt Ankle: 2+ Special Tests: negative Babinski Present Details: Gait cannot be tested in the context of patient's current neurological status. Results & Data ([facility]) Vital Signs (Past 12 Hours) Vital Signs Pulse Pulse Resp BP BP Pulse Ox O2 Del Method 12/12/22 09:12 68 18 116/63 98 Room Air 12/12/22 08:55 67 18 119/62 98 Room Air 12/12/22 07:28 71 12/12/22 04:03 67 16 109/64 96 Room Air 12/12/22 02:15 106/52 L 12/12/22 02:15 73 12 98 12/12/22 02:00 84 19 97 12/12/22 02:00 130/58 L 12/12/22 01:45 81 23 96 12/12/22 01:45 116/65 12/12/22 01:30 76 14 12/12/22 01:30 128/69 12/12/22 01:26 93 H 20 12/12/22 01:33 82 12/12/22 00:15 98/50 L 12/12/22 00:15 81 12 12/12/22 00:05 82 12 12/11/22 23:45 87 19 12/11/22 23:45 92/58 L 12/11/22 23:30 90 14 12/11/22 23:30 90/36 L 12/11/22 23:15 90 14 12/11/22 23:15 115/51 L 12/11/22 23:12 87 18 12/11/22 23:12 103/63 12/11/22 23:01 84 13 Laboratory Results WBC 7.84, hemoglobin 10.8, hematocrit 33.5, MCV 87.7, platelet count 283, sodium 137, potassium 3.8, BUN 8, creatinine 0.64, glucose 101, magnesium 2.2, total CK4 56, AST 27, ALT 38, TSH 1.408, hCG negative, urine drug screen negative, alcohol less than 10.0, serologic upper respiratory PCR is negative. Lyme screening negative. Diagnostic Findings CT of the brain and brain MRI are as described in the history of present illness, I independently reviewed the studies. Electrocardiogram reveals a normal sinus rhythm, 98 bpm. PG Care Time/CCT Total # of Minutes Spent Total Time Spent with Patient: Total time spent is greater than 50% in coordination of care (as documented) at patient's floor/unit and/or counseling patient: 90 minutes Coding Level of Care Code 03388 INT INP/OBS CARE 3/75MIN Diagnoses New onset seizure R56.9 Abnormal MRI of head R93.0
[2022-12-12] MEDS ORDERED: Flu Vaccine (Fluarix) 0.5mL SYR (Standard Dose) IM ONE (11:15)
[2022-12-12] MEDS ORDERED: OPTIRAY 320 500ml IV ONE (18:25)
--- NOTE | 2022-12-12 18:35 | Communication Note ---
Date of Service: December 12, 2022 Patient seen and examined in ER. Admitted earlier today for new onset seizure. MRI brain shows old ischemia. Already evaluated by neurology, appreciate input Continue Otonielra Will need DMV form filled out Will evaluate for stroke (not acute) with HA1c, lipid panel, Echo, CTA head/neck (patient agreeable to CTA). Full note tomorrow
--- NOTE | 2022-12-12 20:53 | CT Scan Report ---
CT angio neck with con, CT angio head w con CLINICAL HISTORY: stroke eval TECHNIQUE: CT angiography of the head and neck was performed following intravenous administration of iodinated contrast. Coronal and sagittal MIPS were obtained from the axial data set and were submitte d for review. Automated dose lowering techniques and/or adjustment according to patient size were ut ilized for this examination. All measurements were calculated based on NASCET criteria. CT DOSE: 588.27 mGy.cm Comparison: Comparison is made to MRI brain 12/12/2022 FINDINGS: Small thyroid nodules are seen which do not require follow-up by ACR criteria. CTA Neck: A 3 vessel aortic arch is shown. There is no significant atherosclerotic plaque in the aor tic arch or the origins of the innominate, left common carotid, and left subclavian arteries. The co mmon carotid, external carotid, cervical segments of the internal carotid arteries, and the cervical segments of the vertebral arteries are patent without hemodynamically significant stenosis. The left vertebral artery is dominant. CTA Head: The anterior and posterior cerebral circulations are patent. origin of the left post erior cerebral artery is seen. 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 Incidental note is m meliton of encephalomalacia in the right parietal lobe compatible with old infarct. IMPRESSION: 1. No occlusion, hemodynamically significant stenosis, or dissection in the major cervical arteries. 2. No occlusion, hemodynamically significant stenosis, aneurysm, dissection, or arteriovenous malfor mation in the major intracranial arteries. Assessment of stenosis of the internal carotid arteries is based on NASCET criteria. ACT 112: Negative or not required by law. Electronically signed by: Castillo Mills M.D. 12/12/2022 8:51 PM
[2022-12-13] MEDS: cefTRIAXone SODIUM 2,000 MG in DEXTROSE 5% 50 ML IV SCH (03:56)
[2022-12-13] MEDS: SODIUM CHLORIDE 0.9% 1000ML 1,000 ML IV SCH (03:58)
--- NOTE | 2022-12-13 04:47 | Electrocardiogram Report ---
Test Reason : Blood Pressure : / mmHG Vent. Rate : 098 BPM Atrial Rate : 098 BPM P-R Int : 168 ms QRS Dur : 084 ms QT Int : 378 ms P-R-T Axes : 061 074 044 degrees QTc Int : 482 ms Normal sinus rhythm Prolonged QT Abnormal ECG No previous ECGs available Confirmed by Massimo Cook ([id number]) on 12/13/2022 4:47:04 AM Referred By: REFERRED SELF Confirmed By:Massimo Cook
[2022-12-13 08:19] LABS: Chol HDL Ratio 3.4 (0-5)
[2022-12-13] MEDS: ENOXAPARIN INJ 40 MG/0.4 ML SYR SQ SCH (08:55)
[2022-12-13] MEDS ORDERED: ATORVASTATIN 40 MG TAB PO SCH (09:00)
[2022-12-13] MEDS ORDERED: levETIRAcetam 500 MG TAB PO SCH (09:00)
[2022-12-13] MEDS ORDERED: ASPIRIN 81 MG ECTAB PO SCH (09:00)
[2022-12-13 10:00] LABS: Estimated Average Glucose 114 mg/dl; Hemoglobin A1C 5.6 % (4.5-5.6)
--- NOTE | 2022-12-13 10:20 | Neurology Progress Note ---
Date of Service December 13, 2022 Assessment & Plan (1) New onset seizure: (2) Abnormal MRI of head: Plan This patient had new onset of her 1st seizure while sleeping December 11. She may have been sleep deprived some but there been no other toxic or metabolic issues to explain her event. She does have several relatively small old areas of encephalomalacia in the right temporal, parietal, and occipital head regions. There is gliosis /scar tissue around these. The patient herself has no history of stroke or other events earlier in life that she is aware. These lesions look very old to me and I suspect she had something in childhood. Her echocardiogram shows an intra-atr ial shunt which could put her at risk for stroke. This shunt may have been larger when she was a child but certainly does not seem to be large enough to warrant surgical intervention now. She has remained stable on levetiracetam with no further seizures. Her postictal confusional state has resolved. There has been no evidence for infection. Recommendations: 1. Continue 81 mg aspirin tablet daily ( in lieu of her shunt had findings on MRI). 2. Continue levetiracetam 500 mg twice daily. 3. I see no need for additional neurologic testing at this time. 4. Follow up with Dr. Portillo as an outpatient in the next 2-3 weeks (or could be with PA) 5. No driving for now. 6. consider EEG as outpatient Overall, I spent a total of 60 minutes with this case including review of records, review of CT and MRI films, direct evaluation the patient at bedside, and discussion of the case with the RN and patient at bedside, and Dr. Salazar, including differential diagnosis and treatment options Admission and Anticipated Discharge Date Admission Date: December 12, 2022 Subjective Patient has no complaint of pain or headache. She has no new issues and nursing reports no further seizures. Patient did tell me that she was tired this past week. She was not a caffeine user. Patient has mild anemia and a relatively unremarkable CMP. TSH and liver were normal as were lymphocytes and tox screen. CK was elevated on admission and serum lactate is now back to normal. Hemoglobin A1c was normal at 5.6. CT angiography of the head neck were unremarkable. 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 I reviewed these films. Apparently these little strokes were noted about 2 years ago after they got a CAT scan of the head when they stated the [place], but there is no history prior of strokes, head trauma, or meningitis That the patient recalls. She was raised by her grandparents in [place] and they are no longer alive. Echocardiogram revealed a small intra-atrial shunt. Anglesmith did not recommend any surgical procedure. Results & Data ([facility]) Vital Signs (Past 12 Hours) Vital Signs Temp Pulse Resp BP Pulse Ox O2 Del Method 12/13/22 07:45 36.5 C 64 14 93/55 L 98 Room Air 12/13/22 03:44 36.7 C 67 18 101/63 97 Room Air 12/12/22 23:16 36.6 C 67 18 105/65 98 Room Air Exam (Neuro) Physical Exam: The patient is awake and alert. Speech is without obvious aphasia or dysarthria although she has a somewhat thick accent and can be difficult to understand at times. She is pleasant and cooperative and has a normal mood and affect. Thought processes are reasonable to conversation. Extraocular eye muscles are intact without nystagmus. There is no facial droop. Coordination seem reasonable in the arms and there was no ataxia or tremors. Strength seems symmetrical limbs. PG Care Time/CCT Total # of Minutes Spent Total Time Spent with Patient: Total time spent is greater than 50% in coordination of care (as documented) at patient's floor/unit and/or counseling patient: Coding Level of Care Code 37809 SUB INP/OBS CARE 3/50MIN Diagnoses New onset seizure R56.9 Abnormal MRI of head R93.0 Time Spent (min) 60
--- NOTE | 2022-12-13 14:34 | Discharge Summary ---
Date of Service December 13, 2022 Admission HPI Per Admitting Provider This is a 36-year-old female with past medical history significant for chronic hepatitis B, currently under observation; history of hiatal hernia, presents with seizure-like episode. is in the room. [facility] and came home and she was lying down on the sofa. Around 8:30 p.m., suddenly she was shaking her body, lasted for several minutes and after that she not talking, semed unresponsive. Called EMS and was brought to hospital.. does not think that she has urine incontinence. She never had these episodes before. She was active. She was ambulating fine. No fevers, no cough, no complaints of any pain. When the patient came to the ER, seemed to be mostly not talking, seemed to be in postictal state. Currently, the patient is speaking in low voices, could tell her name, knows that she is in the hospital, could tell today's date. She says she has mild headache and she has mild left lower quadrant abdominal pain. Denies any chest pain or denies any nausea or cough, afebrile. Says she has generalized weakness and feeling very weak.Hemodynamically stable. Principal Diagnosis New onset seizure Small interatrial cardiac shunt Right side encephalomalacia Discharge Exam Patient appeared well. No further seizures while here. Observed ambulating in hallway with no difficulty Respiratory Breathing comfortably on room air, no wheezing/rhonchi/rales Cardiovascular Regular rate and rhythm, no murmurs/rubs/gallops Gastrointestinal (Abdomen) soft, non tender, non distended Musculoskeletal No edema Neurologic awake, alert, spontaneously moving extremities Discharge Data Allergies Allergy/AdvReac Type Severity Reaction Status Date / Time No Known Allergies Allergy Verified 12/11/22 22:21 Consultations 12/12/22 00:34 ED Decision to Admit Stat 12/12/22 08:00 Consult Neurology Routine Ordered Studies 12/11/22 21:51 CT head/brain wo con Urgent 12/12/22 00:11 MRI Brain [MR brain seizure wo/w con] Stat 12/12/22 14:35 CTA head w con [CT angio head w con] Routine CTA neck with con [CT angio neck with con] Routine Hospital Course (1) New onset seizure: (2) Abnormal MRI of head: Plan Ms Leona Clark is a 36 year old female with history of chronic Hepatitis B infection who presented to the hospital on night of 12/11 after a new onset seizure while in bed. She underwent MRI brain which showed right side encephalomalacia and gliosis with evidence of prior ischemia. Because of this MRI finding, she underwent further stroke workup: CTA head and neck no stenosis or narrowing. TTE showed a small interatrial shunt. Lipid panel (LDL 95) HA1c (5.6%) and TSH (normal) She was started on keppra 500mg BID and will need to follow up with Neurology after discharge to make arrangements for an outpatient EEG. She was instructed that she should not drive, swim, take baths (showers are ok) and no operating of heavy machinery until she is cleared to do so by her neurologist. A DMV form DL-13 was filled out and faxed over. For her prior ischemia, she was started on aspirin 81mg and atorvastatin 40mg daily. Total Time Total Time Spent Total Time Spent (In Minutes): 40 Discharge Plan Discharge Items Patient Disposition: Home - Self-Care Reason For Visit: SEIZURE Discharge Diagnosis: New onset seizure Small interatrial cardiac shunt Right side encephalomalacia Condition on Discharge: Good Activity: As commented below Bathing Comment: No baths, no Swimming, No operating heavy machinery Driving/Machine Use: No driving allowed until cleared by your Neurologist Non-emergency contact: Primary Care Provider and Neurologist Call non-emergency contact if: you have any medication questions and your symptoms worsen Follow-up/Referrals: Efrain Portillo MD [Physician] - Maribell Salinas DO [Primary Care Provider] - Diet: Heart Healthy Addtl Attending Provider Instructions: You were admitted for a new seizure Your brain MRI shows right side encephalomalacia which likely represents old stroke You had a CTA of your head and neck and the blood vessels which supplies blood to your brain is normal You had an Echo (ultrasound of your heart) which shows a very small shunt (hole). This is possibly the cause of your old stroke. For this, you should be on aspirin indefinitely. You should follow up with Neurology, you were seen by Dr Portillo here to schedule an outpatient EEG You should follow up with your primary care doctor in 1 week. You should get a referral to see a [facility] Dumper (heart doctor) for monitoring of the shunt in your heart and to also discuss whether you need an event monitor to check for underlying arrhythmia (irregular heart beats) You are not allowed to drive until cleared by your Neurologist You should not take baths (showers are ok), no swimming, no operating heavy machinery Pending Studies at Discharge: No Stand-Alone Forms: My [facility], Smoking Cessation Medications and DC Order Prescriptions: New atorvastatin 40 mg Tablet 40 mg PO QAM 30 Days Qty: 30 1RF levetiracetam [Keppra] 500 mg Tablet 500 mg PO BID 30 Days Qty: 60 1RF aspirin 81 mg Tablet,Delayed Release (Dr/Ec) 81 mg PO QAM 30 Days Qty: 30 1RF Discharge Orders: Discharge Order (Routine); Ordered 12/13/22 Ordered By: Angelia Mccarthy/Other Patient Handouts: First Aid: Seizures Admission Data Admit Date/Time: 12/12/22 02:16 Attending Provider: Angelia Salazar Admit Provider: Jony Magallanes Primary Care Provider: Maribell Salinas Other Providers: Jony Magallanes ; Efrain Portillo ; Burton Stephen ; Buffy Galloway ; Nancy Giang ; Shayla James ; Jc Morrison ; Shayla Sandoval ; Alvaro Hill ; Yvonne Harrington ; Doron Sapp ; Stefania Sebastian ; Lucy Steinberg ; Jc Thomas ; Maikel Aguillon Other Interventions: Discharge Summary Assessment (RN) Last Done: 12/13/22 12:12
== END 2022-12-13 12:59 | disposition home or self-care (01) | DRG 101 ==
LOC: ED 21:25 → EDINP 12-12 02:16 → 4W 12-12 02:47

== ENCOUNTER 2024-03-03 18:06 | Observation (INO) ==
--- NOTE | 2024-03-03 18:19 | Emergency Department Note ---
Impression & Plan Seizure ADMIT ED Provider Note HPI: History obtained from EMS report via bedside RN. The patient is a 38-year-old female with history of a seizure disorder that was recently diagnosed this past spring, presents the emergency department with a chief complaint of seizure-like activity. On arrival here to the ED the patient appears postictal, she is able to follow commands but she is not verbal. Patient is alert. Per EMS report the patient was found in bed in a lethargic type state by her and then exhibited some period of shaking consistent with a seizure. This was reportedly witnessed by her . On arrival here to the ED the patient is otherwise hemodynamically stable. ROS: - Per HPI Differential Diagnosis: Breakthrough seizure, intracranial hemorrhage, stroke, encephalitis, meningitis, amongst other potential pathologies. *Outpatient medications and allergy history reviewed. PE: General: Patient is lethargic appearing but alert to verbal stimuli, responds to verbal commands HEENT: Normocephalic, trachea midline Eyes: Extraocular eye movement is intact, no scleral erythema Pulmonary: Clear to auscultation bilaterally, no wheezing Cardio: Regular rate and rhythm GI: Abdomen is soft to palpation : No suprapubic tenderness MSK: No evidence of trauma or malformation of the extremities, no edema Skin: No evidence of rash Neuro: Alert, no focal deficits, ambulates all extremities spontaneously and on command Psychiatric: Patient is lethargic appearing INDEPENDENT INTERPRETATIONS: monitor worker: (As interpreted by myself): - An order was placed for continuous cardiac monitoring - Patient was noted to be in sinus rhythm with a rate of 80 EKG: (As interpreted by myself): Rate: 98 Rhythm: Normal sinus rhythm Intervals: Within normal limits ST changes: No ST elevation Time: 6 Interventions provided in ED: -IV fluid bolus, IV Keppra Medical Decision Making: IV was established and lab work obtained, patient was placed on monitor worker. Lab work shows no leukocytosis, hemoglobin is stable at 11.4, platelet count is normal CMP does not show any evidence of acute kidney injury, potassium is normal, sodium is normal, lactic acid is normal. CT imaging of the head was obtained and does not show any acute intracranial process, does show stable encephalomalacia in comparison to previous imaging. Patient was given IV fluids and IV Keppra here in the ED. She is afebrile and there is no report of any recent infection signs/symptoms. Low suspicion for meningitis or encephalitis at this time given these findings in addition to the patient's history of similar seizure-like activity. On my reassessment the patient is somewhat more alert but remains postictal appearing, her is now at the bedside. He states that he found her sleeping and then witnessed a 1 minute long episode of seizure-like activity. Given that the patient has not returned to her baseline I do feel she should be admitted to the hospital for observation and further care. Case was discussed with the on-call hospitalist, Dr. Magallanes, the patient was placed for admission in stable condition. Consultants/Discussions held with other healthcare providers: -Hospitalist, Dr. Magallanes Disposition discussion held by myself with: -Patient Diagnosis: 1. Breakthrough seizure, acute 2. Prolonged postictal state, acute Disposition: Admission Hammad Doll DO Emergency Medicine Past Med/Surg History Problem List (Updated 03/03/24 @ 23:24 by Hammad Doll DO) Seizure (Acute) Encounter for pre-operative examination No chronic diseases present No significant past surgical history New onset seizure (Acute) Abnormal MRI of head Medical History (Updated 03/03/24 @ 23:24 by Hammad Doll DO) Stroke Incidentally noted on imaging Neuro feels areas of encephalomalacia are old (suspect from childhood possibly) Bladder stones NO SURGERY>PT UNSURE OF DETAILS Hepatitis B Currently under observation per records Hyperlipidemia History of COVID-28 FEB 2022>RESOLVED Seizure 12/15/22 EVENT, HOSPITALIZED AT [facility] *FOLLOWED BY [facility] MRI SHOWED RIGHT SIDE ENCEPHALOMALACIA AND GLIOSIS WITH EVIDENCE OF PRIOR ISCHEMIA STARTED ON KEPPRA PER 12/13/22 DSICHARGE SUMMARY Surgical History Nausea and vomiting after administration of anesthetic agent + ITCHING ALL OVER WITH History of section X 2 History of esophagogastroduodenoscopy (EGD) Family History Other No family history of adverse response to anesthesia Social History Smoking Status: Never smoker Second Hand Exposure: No; Hx Alcohol Use: No Hx Substance Use: No Preferred Language: Jordanian Communication Ability: Effective Special Distribution Clerk Required: No Beliefs That Will Affect Care: Muslim Muslim Beliefs: LUTHERAN Current Living Situation: Family Current Living Situation Comment: AND CHILDREN Feels Safe at Home: Yes Assistive Devices: None Allergies Allergies Allergy/AdvReac Type Severity Reaction Status Date / Time No Known Allergies Allergy Verified 03/03/24 21:43 Home Meds Home Medications Medication Instructions Recorded Confirmed multivitamin 1 tab PO DAILY 01/14/23 03/03/24 levetiracetam 500 mg tablet 1,000 mg PO HS 03/03/24 03/03/24 (Keppra) Previous Rx's Medication Instructions Recorded aspirin 81 mg tablet,delayed 81 mg PO QAM 30 days #30 tabs 12/13/22 release atorvastatin 40 mg tablet 40 mg PO QAM 30 days #30 tabs 12/13/22 Results & Data (ED) Vital Signs Vital Signs - 24 hr 03/03/24 17:18 03/03/24 17:23 03/03/24 18:15 Temperature 36.6 C Temperature Source Temporal Artery Scan Pulse Rate 92 H 84 Pulse Rate [Apical] Pulse Rhythm Regular Regular Pulse Strength Normal Respiratory Rate 20 18 Respiratory Effort / Characteristics Non-Labored Spontaneous Respiratory Depth Normal Respiratory Pattern Regular Blood Pressure 107/69 Blood Pressure [Right Arm] Blood Pressure Mean 81 Blood Pressure Mean [Right Arm] Blood Pressure Position Sitting Pulse Oximetry 97 97 95 Oxygen Delivery Method Room Air Room Air Room Air Sepsis Recent Fever Within 48 Hours No Sepsis New/Unexplained Change in Mental Status No Sepsis Action Taken by Nursing No Action Required 03/03/24 18:32 03/03/24 22:02 03/03/24 22:32 Temperature Temperature Source Pulse Rate 89 79 Pulse Rate [Apical] 72 Pulse Rhythm Pulse Strength Respiratory Rate 16 Respiratory Effort / Characteristics Respiratory Depth Respiratory Pattern Blood Pressure Blood Pressure [Right Arm] 105/59 L Blood Pressure Mean Blood Pressure Mean [Right Arm] 74 Blood Pressure Position Pulse Oximetry 97 Oxygen Delivery Method Room Air Sepsis Recent Fever Within 48 Hours Sepsis New/Unexplained Change in Mental Status Sepsis Action Taken by Nursing Laboratory Data 03/03/24 18:42 03/03/24 18:42 Lab Results 03/03/24 03/03/24 03/03/24 Range/Units 18:42 18:48 22:14 WBC 5.51 (4.8-10.8) K/ul RBC 4.14 L (4.20-5.40) M/uL Hgb 11.4 L (12.0-16.0) g/dl Hct 36.1 L (37.0-47.0) % MCV 87.2 (80.0-100.0) fL MCH 27.5 (25.0-34.0) pg MCHC 31.6 L (32.0-36.0) g/dL RDW Std Deviation 41.3 (36.4-46.3) fL RDW Coeff of Rodney 13.0 (11.5-14.5) % Plt Count 271 (130-400) K/uL MPV 9.7 (9.4-12.4) fL Sodium 136 (136-145) mmol/L Potassium 3.6 (3.5-5.1) mmol/L Chloride 106 (98-107) mmol/L Carbon Dioxide 22 (21-32) mmol/L Anion Gap 8 (3-11) BUN 9 (6-23) mg/dl Creatinine 0.75 (0.6-1.2) mg/dl Est Cr Clr Drug Dosing 131.9 ml/min Est GFR ( Amer) 115.6 ml/min Est GFR (Non-Af Amer) 99.7 ml/min BUN/Creatinine Ratio 12.0 (10-20) Glucose 78 (70-99(Fasting)) mg/dl POC Glucose 78 (70-99) mg/dl Lactate 1.7 (0.4-2.0) mmol/L Calcium 9.0 (8.6-10.3) mg/dl Phosphorus 1.5 L* (2.5-4.9) mg/dl Magnesium 2.2 (1.7-2.4) mg/dl Total Bilirubin 0.6 (0.2-1.0) mg/dl Direct Bilirubin 0.1 (0-0.2) mg/dl AST 24 (13-39) U/L ALT 27 (7-52) U/L Alkaline Phosphatase 57 (34-104) U/L Total Protein 7.5 (6.0-8.3) gm/dl Albumin 4.2 (3.4-5.0) gm/dl Administered Medications Discontinued Medications Sodium Chloride (Nss) 1,000 mls @ 999 mls/hr IV .Q1H1M STA Stop: 03/03/24 19:14 Last Infusion: 03/03/24 21:20 Dose: Infused Documented By: Admin: 03/03/24 18:29 Dose: 999 mls/hr Documented By: LAZARO Levetiracetam (Levetiracetam 500 Mg/5 Ml Vial) 1,000 mg IV NOW STA Stop: 03/03/24 18:17 Last Admin: 03/03/24 18:31 Dose: 1,000 mg Documented By: LAZARO Imaging Data Radiologist's Impression: Head CT 03/03/24 18:15 Exam(s): CT HEAD Without Contrast EXAM: CT Head Without Intravenous Contrast CLINICAL HISTORY: Reason for exam: seizure. TECHNIQUE: Axial computed tomography images of the head/brain without intravenous contrast. CTDI is 68.31 mGy and DLP is 1098.96 mGy-cm. Automated exposure control was utilized for the study. A dose lowering technique was utilized adhering to the principles of ALARA. COMPARISON: CT head on 12/11/2022. MRI brain on 12/12/2022. FINDINGS: Brain: No acute infarct or hemorrhage. No extra-axial fluid collection. No mass effect or midline shift. Stable encephalomalacia in the right parietal region. Ventricles and sulci: Ex vacuo dilatation of the right lateral ventricle. No ventriculomegaly or intraventricular hemorrhage. Bones: Normal. No bony lesion or acute fracture. Subcutaneous tissues: Normal. Sinuses: Normal. No air-fluid levels or mucosal thickening. Mastoid air cells: Normal. Orbits: Grossly unremarkable. IMPRESSION: 1. No acute intracranial abnormality. 2. Stable encephalomalacia in the right parietal region. Electronically signed by: Talisha Lazo M.D. 03/03/24 20:12 PM Discharge Plan Visit Data Chief Complaint: Seizure Stated Complaint: SEIZURE ED Provider: Hammad Doll Discharge Problem: Seizure Forms Stand Alone Forms: My [facility] [employer] Prescriptions Prescriptions: No Action atorvastatin 40 mg Tablet 40 mg PO QAM 30 Days Qty: 30 1RF aspirin 81 mg Tablet,Delayed Release (Dr/Ec) 81 mg PO QAM 30 Days Qty: 30 1RF multivitamin Tablet 1 tab PO DAILY Patient Comments: "when remembers to take" levetiracetam [Keppra] 500 mg tablet 1,000 mg PO HS Referrals Referrals: Maribell Salinas DO [Primary Care Provider] -
[2024-03-03] MEDS: SODIUM CHLORIDE 0.9% 1,000 ML IV STA (18:29)
[2024-03-03] MEDS: levETIRAcetam 500 MG/5 ML VIAL IV STA (18:31)
[2024-03-03 19:14] LABS: Hematocrit (blood only) 36.1 % (37.0-47.0); Hemoglobin 11.4 g/dl (12.0-16.0); Mean Corpuscular Hemoglobin 27.5 pg (25.0-34.0); Mean Corpuscular Hgb Conc 31.6 g/dL (32.0-36.0); Mean Corpuscular Volume 87.2 fL (80.0-100.0); Mean Platelet Volume 9.7 fL (9.4-12.4); Platelet Count 271 K/uL (130-400); RDW Standard Deviation 41.3 fL (36.4-46.3); Red Blood Count 4.14 M/uL (4.20-5.40); White Blood Count 5.51 K/ul (4.8-10.8)
[2024-03-03 19:34] LABS: Creatinine Clr Calc Pharmacy 131.9 ml/min; Est GFR (African American) 115.6 ml/min; Est GFR (Non-African American) 99.7 ml/min; Potassium 3.6 mmol/L (3.5-5.1)
[2024-03-03 19:45] LABS: Albumin Level 4.2 gm/dl (3.4-5.0); Bilirubin Direct 0.1 mg/dl (0-0.2); Bilirubin,Total 0.6 mg/dl (0.2-1.0); Magnesium 2.2 mg/dl (1.7-2.4); Phosphorus 1.5 mg/dl (2.5-4.9); Total Protein 7.5 gm/dl (6.0-8.3)
--- NOTE | 2024-03-03 20:13 | CT Scan Report ---
Exam(s): CT HEAD Without Contrast EXAM: CT Head Without Intravenous Contrast CLINICAL HISTORY: Reason for exam: seizure. TECHNIQUE: Axial computed tomography images of the head/brain without intravenous contrast. CTDI is 68.31 mGy and DLP is 1098.96 mGy-cm. Automated exposure control was utilized for the study. A dose lowering technique was utilized adhering to the principles of ALARA. COMPARISON: CT head on 12/11/2022. MRI brain on 12/12/2022. FINDINGS: Brain: No acute infarct or hemorrhage. No extra-axial fluid collection. No mass effect or midline shift. Stable encephalomalacia in the right parietal region. Ventricles and sulci: Ex vacuo dilatation of the right lateral ventricle. No ventriculomegaly or intraventricular hemorrhage. Bones: Normal. No bony lesion or acute fracture. Subcutaneous tissues: Normal. Sinuses: Normal. No air-fluid levels or mucosal thickening. Mastoid air cells: Normal. Orbits: Grossly unremarkable. IMPRESSION: 1. No acute intracranial abnormality. 2. Stable encephalomalacia in the right parietal region. Electronically signed by: Talisha Lazo M.D. 03/03/24 20:12 PM
[2024-03-04] MEDS ORDERED: SODIUM PHOSPHATE 3 MMOL/1 ML INFUSION IV STA (00:09)
[2024-03-04] MEDS: SODIUM PHOSPHATE 24 MMOL in SODIUM CHLORIDE 0.9% 500 ML IV STA (00:56)
--- NOTE | 2024-03-04 00:56 | History & Physical Report ---
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 Seizure lasted about one-minute as per . Initially in the ER she was postictal. Currently alert and awake and oriented x 3 but speaking in very low volume. During the episode possible biting of tongue as per . No incontinence. Patient currently has headache 6/10 severity. Denies any blurred visions. No earache or runny nose or sore throat. No cough. Afebrile. Denies any chest pain or shortness of breath. Denies nausea. No abdominal pain. Normal bowel and bladder movements. Prior to the episode she was eating and drinking and ambulating okay. Seizure history of seizure and on Keppra can follow-up Keppra levels received IV Keppra 1000 mg will continue with IV Keppra 500 mg twice daily IV Ativan as needed for breakthrough seizures EEG as per neurology notes in [facility] there is a plan to change to Lamictal as patient having some side effects with Keppra consult neurology in a.m. 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 Seizure lasted about one-minute as per . Initially in the ER she was postictal. Currently alert and awake and oriented x 3 but speaking in very low volume. During the episode possible biting of tongue as per . No incontinence. Patient currently has headache 6/10 severity. Denies any blurred visions. No earache or runny nose or sore throat. No cough. Afebrile. Denies any chest pain or shortness of breath. Denies nausea. No abdominal pain. Normal bowel and bladder movements. Prior to the episode she was eating and drinking and ambulating okay. Past medical history. As mentioned above . Past surgical history. . EGD. Social history. . No smoking. No alcohol use. No drug use. Family history. Son has autism. Allergies Allergy/AdvReac Type Severity Reaction Status Date / Time No Known Allergies Allergy Verified 03/03/24 21:43 Home Medications Medication Instructions Recorded Confirmed Type aspirin 81 mg tablet,delayed 81 mg PO QAM 30 days #30 tabs 12/13/22 03/03/24 Rx release atorvastatin 40 mg tablet 40 mg PO QAM 30 days #30 tabs 12/13/22 03/03/24 Rx multivitamin 1 tab PO DAILY 01/14/23 03/03/24 History levetiracetam 500 mg tablet 1,000 mg PO HS 03/03/24 03/03/24 History (Keppra) Past Med/Surg History Problem List (Updated 03/03/24 @ 23:24 by Hammad Doll DO) Seizure (Acute) Encounter for pre-operative examination No chronic diseases present No significant past surgical history New onset seizure (Acute) Abnormal MRI of head Medical History (Updated 03/03/24 @ 23:24 by Hammad Doll DO) Stroke Incidentally noted on imaging Neuro feels areas of encephalomalacia are old (suspect from childhood possibly) Bladder stones NO SURGERY>PT UNSURE OF DETAILS Hepatitis B Currently under observation per records Hyperlipidemia History of COVID-28 FEB 2022>RESOLVED Seizure 12/15/22 EVENT, HOSPITALIZED AT [facility] *FOLLOWED BY [facility] NEUROLOGY MRI SHOWED RIGHT SIDE ENCEPHALOMALACIA AND GLIOSIS WITH EVIDENCE OF PRIOR ISCHEMIA STARTED ON KEPPRA PER 12/13/22 DSICHARGE SUMMARY Surgical History Nausea and vomiting after administration of anesthetic agent + ITCHING ALL OVER WITH History of section X 2 History of esophagogastroduodenoscopy (EGD) Family History Other No family history of adverse response to anesthesia Social History Smoking Status: Never smoker Second Hand Exposure: No; Hx Alcohol Use: No Hx Substance Use: No Preferred Language: Taiwanese Communication Ability: Effective Captain Room Service Required: No Beliefs That Will Affect Care: None Current Living Situation: Spouse and Family Current Living Situation Comment: AND CHILDREN Feels Safe at Home: Yes Safety Concerns: Feels Safe At This Time Assistive Devices: None Review of Systems Review of Systems: All systems reviewed & are unremarkable except as noted in HPI & below Physical Exam Physical Exam: General- Not in distress Head- atraumatic Eyes- PERRL. ENT- oropharynx clear Neck- supple, no JVD. Lungs- clear to auscultation no wheezing or crackles. Heart- regular rhythm; no murmur, no gallop. Abdomen- normal bowel sounds, soft, nontender, no distension Extremities- no pretibial edema, no erythema seen Neuro- alert, oriented x 3; PERRL,no facial palsy; no dysarthria; obeys simple commands, moves extremities. Results & Data Results & Data Vital Signs (Past 12 Hours) Vital Signs Temp Pulse Pulse Resp BP BP Pulse Ox 03/03/24 22:32 79 03/03/24 22:02 72 16 105/59 L 97 03/03/24 18:32 89 03/03/24 18:15 84 18 95 03/03/24 17:23 97 03/03/24 17:18 36.6 C 92 H 20 107/69 97 O2 Del Method 03/03/24 22:32 03/03/24 22:02 Room Air 03/03/24 18:32 03/03/24 18:15 Room Air 03/03/24 17:23 Room Air 03/03/24 17:18 Room Air Diagnostic Findings Laboratory Results WBC 5.51 K/ul (4.8-10.8) 03/03/24 18:42 RBC 4.14 M/uL (4.20-5.40) L 03/03/24 18:42 Hgb 11.4 g/dl (12.0-16.0) L 03/03/24 18:42 Hct 36.1 % (37.0-47.0) L 03/03/24 18:42 MCV 87.2 fL (80.0-100.0) 03/03/24 18:42 MCH 27.5 pg (25.0-34.0) 03/03/24 18:42 MCHC 31.6 g/dL (32.0-36.0) L 03/03/24 18:42 RDW Std Deviation 41.3 fL (36.4-46.3) 03/03/24 18:42 RDW Coeff of Rodney 13.0 % (11.5-14.5) 03/03/24 18:42 Plt Count 271 K/uL (130-400) 03/03/24 18:42 MPV 9.7 fL (9.4-12.4) 03/03/24 18:42 Sodium 136 mmol/L (136-145) 03/03/24 18:42 Potassium 3.6 mmol/L (3.5-5.1) 03/03/24 18:42 Chloride 106 mmol/L (98-107) 03/03/24 18:42 Carbon Dioxide 22 mmol/L (21-32) 03/03/24 18:42 Anion Gap 8 (3-11) 03/03/24 18:42 BUN 9 mg/dl (6-23) 03/03/24 18:42 Creatinine 0.75 mg/dl (0.6-1.2) 03/03/24 18:42 Est Cr Clr Drug Dosing 131.9 ml/min 03/03/24 18:42 Est GFR ( Amer) 115.6 ml/min 03/03/24 18:42 Est GFR (Non-Af Amer) 99.7 ml/min 03/03/24 18:42 BUN/Creatinine Ratio 12.0 (10-20) 03/03/24 18:42 Glucose 78 mg/dl (70-99(Fasting)) 03/03/24 18:42 POC Glucose 78 mg/dl (70-99) 03/03/24 18:48 Lactate 1.7 mmol/L (0.4-2.0) 03/03/24 22:14 Calcium 9.0 mg/dl (8.6-10.3) 03/03/24 18:42 Phosphorus 1.5 mg/dl (2.5-4.9) L* 03/03/24 18:42 Magnesium 2.2 mg/dl (1.7-2.4) 03/03/24 18:42 Total Bilirubin 0.6 mg/dl (0.2-1.0) 03/03/24 18:42 Direct Bilirubin 0.1 mg/dl (0-0.2) 03/03/24 18:42 AST 24 U/L (13-39) 03/03/24 18:42 ALT 27 U/L (7-52) 03/03/24 18:42 Alkaline Phosphatase 57 U/L (34-104) 03/03/24 18:42 Total Protein 7.5 gm/dl (6.0-8.3) 03/03/24 18:42 Albumin 4.2 gm/dl (3.4-5.0) 03/03/24 18:[address] 03/03/24 18:15 Exam(s): CT HEAD Without Contrast EXAM: CT Head Without Intravenous Contrast CLINICAL HISTORY: Reason for exam: seizure. TECHNIQUE: Axial computed tomography images of the head/brain without intravenous contrast. CTDI is 68.31 mGy and DLP is 1098.96 mGy-cm. Automated exposure control was utilized for the study. A dose lowering technique was utilized adhering to the principles of ALARA. COMPARISON: CT head on 12/11/2022. MRI brain on 12/12/2022. FINDINGS: Brain: No acute infarct or hemorrhage. No extra-axial fluid collection. No mass effect or midline shift. Stable encephalomalacia in the right parietal region. Ventricles and sulci: Ex vacuo dilatation of the right lateral ventricle. No ventriculomegaly or intraventricular hemorrhage. Bones: Normal. No bony lesion or acute fracture. Subcutaneous tissues: Normal. Sinuses: Normal. No air-fluid levels or mucosal thickening. Mastoid air cells: Normal. Orbits: Grossly unremarkable. IMPRESSION: 1. No acute intracranial abnormality. 2. Stable encephalomalacia in the right parietal region. Electronically signed by: Talisha Lazo M.D. 03/03/24 20:12 PM ECG Additional Comments: ECG. normal sinus rhythm with a rate of 93. Possible left atrial enlargement. No significant change was found. Code Status & VTE Plan VTE Prophylaxis Plan VTE Prophylaxis will be ordered: Yes
[2024-03-04 01:00] LABS: Appearance Urine Clear (Clear); Bacteria Urine Automated 4+ (None Seen); Bilirubin Urine Negative (Negative); Blood Urine Negative (Negative); Cast Urine Automated 0-2 /lpf (0-2); Color Urine Yellow; Epithelial Cell Urine Auto 0-2 /hpf (0-2); Glucose Urine UA Negative (Negative); Ketones Urine Negative (Negative); Leukocyte Esterase Urine Trace (Negative); Nitrite Urine Positive (Negative); Protein Urine Negative (Negative); RBC Urine Automated 0-2 /hpf (0-2); Specific Gravity Urine 1.008 (1.000-1.030); Urobilinogen Urine Negative (Negative); WBC Urine Automated 0-5 /hpf (0-5)
[2024-03-04 01:31] LABS: Amphetamines+Metham, Urine Neg (Neg); Barbiturates, Urine Neg (Neg); Benzodiazepine, Urine Neg (Neg); Cocaine, Urine Neg (Neg); MDMA (Ecstacy), Urine Neg (Neg); Marijuana, Urine Neg (Neg); Methadone, Urine Neg (Neg); Opiate, Urine Neg (Neg); Phencyclidine, Urine Neg (Neg)
[2024-03-04] MEDS ORDERED: LORazepam 2 MG in SYRINGE 1 ML IV PRN (03:04)
[2024-03-04] MEDS ORDERED: POLYETHYLENE (MIRALAX) 17 GM PACK PO PRN (03:04)
[2024-03-04] MEDS ORDERED: ACETAMINOPHEN 325 MG TAB PO PRN (03:04)
[2024-03-04] MEDS ORDERED: NITROGLYCERIN SL 0.4 MG/TAB TAB SL PRN (03:04)
[2024-03-04] MEDS: ENOXAPARIN INJ 40 MG/0.4 ML SYR SQ SCH (03:34)
[2024-03-04] MEDS: SODIUM CHLORIDE 0.9% 1,000 ML IV SCH (03:35)
[2024-03-04 05:13] LABS: Basophils # (auto) 0.05 K/uL (0.00-0.20); Basophils % (auto) 0.6 %; Eosinophils # (auto) 0.03 K/uL (0.00-0.50); Eosinophils % (auto) 0.4 %; Hematocrit (blood only) 34.6 % (37.0-47.0); Hemoglobin 11.2 g/dl (12.0-16.0); Immature Granulocytes # (auto) 0.03 K/uL (0.01-0.20); Immature Granulocytes % (auto) 0.4 %; Lymphocytes % (auto) 35.3 %; Mean Corpuscular Hemoglobin 27.8 pg (25.0-34.0); Mean Corpuscular Hgb Conc 32.4 g/dL (32.0-36.0); Mean Corpuscular Volume 85.9 fL (80.0-100.0); Mean Platelet Volume 9.9 fL (9.4-12.4); Monocytes # (auto) 0.75 K/uL (0.11-0.59); Monocytes % (auto) 9.5 %; Neutrophils # (auto) 4.27 K/uL (1.40-6.50); Neutrophils % (auto) 53.8 %; Platelet Count 268 K/uL (130-400); RDW Standard Deviation 40.8 fL (36.4-46.3); Red Blood Count 4.03 M/uL (4.20-5.40); White Blood Count 7.93 K/ul (4.8-10.8)
[2024-03-04 05:37] LABS: Calcium 8.4 mg/dl (8.6-10.3); Creatinine Clr Calc Pharmacy 164.9 ml/min; Est GFR (African American) 132.1 ml/min; Magnesium 2.1 mg/dl (1.7-2.4); Phosphorus 4.4 mg/dl (2.5-4.9); Potassium 3.4 mmol/L (3.5-5.1)
[2024-03-04] MEDS: levETIRAcetam IV 500 MG in SODIUM CHLOR 0.9% MINI-B 100 ML IV SCH (08:04)
[2024-03-04] MEDS: cefTRIAXone SODIUM 2,000 MG/50 ML BAG IV SCH (08:51)
[2024-03-04] MEDS: MULTIVITAMIN TAB PO SCH (10:12)
[2024-03-04] MEDS: ATORVASTATIN 40 MG TAB PO SCH (10:12)
[2024-03-04] MEDS: ASPIRIN 81 MG ECTAB PO SCH (10:12)
--- NOTE | 2024-03-04 11:17 | Electroencephalogram ---
EEG Procedure Note Date of Service March 04, 2024 Start / End Times Start Time: 06:19 End Time: 06:39 Referring Physician Jony Magallanes History a 38-year-old female with seizure. EEG performed for evaluation of epileptiform activity. Home Medication List Medication Instructions Recorded Confirmed Type aspirin 81 mg tablet,delayed 81 mg PO QAM 30 days #30 tabs 12/13/22 03/03/24 Rx release atorvastatin 40 mg tablet 40 mg PO QAM 30 days #30 tabs 12/13/22 03/03/24 Rx multivitamin 1 tab PO DAILY 01/14/23 03/03/24 History levetiracetam 500 mg tablet 1,000 mg PO HS 03/03/24 03/03/24 History (Sandee) Inpatient Medication List Aspirin (Aspirin 81 Mg Ectab) 81 mg PO QAM [facility] Stop: 04/03/24 08:59 Last Admin: 03/04/24 10:12 Dose: 81 mg Documented By: ISAIAS Atorvastatin Calcium (Atorvastatin 40 Mg Tab) 40 mg PO QAM [facility] Stop: 04/03/24 08:59 Last Admin: 03/04/24 10:39 Dose: Not Given Documented By: ISAIAS Enoxaparin Sodium (Enoxaparin Inj 40 Mg/0.4 Ml Syr) 40 mg SQ Q12H [facility] Stop: 04/03/24 03:29 Last Admin: 03/04/24 03:34 Dose: 40 mg Documented By: ROBERT Sodium Chloride (Nss) 1,000 mls @ 100 mls/hr IV .Q10H [facility] Stop: 03/04/24 13:03 Last Admin: 03/04/24 03:35 Dose: 100 mls/hr Documented By: ROBERT Levetiracetam 500 mg/ Sodium (Chloride) 105 mls @ 420 mls/hr IV Q12H [facility] Stop: 04/03/24 07:59 Last Infusion: 03/04/24 08:19 Dose: Infused Documented By: Admin: 03/04/24 08:04 Dose: 420 mls/hr Documented By: ISAIAS Ceftriaxone Sodium (Rocephin) 2,000 mg in 50 mls @ 100 mls/hr IV Q24H [facility] Stop: 03/09/24 08:29 Last Admin: 03/04/24 08:51 Dose: 100 mls/hr Documented By: ISAIAS Multivitamins (Multivitamin Tab) 1 tab PO DAILY [facility] Stop: 04/03/24 08:59 Last Admin: 03/04/24 10:12 Dose: 1 tab Documented By: ISAIAS Discontinued Medications Sodium Chloride (Nss) 1,000 mls @ 999 mls/hr IV .Q1H1M [facility] Stop: 03/03/24 19:14 Last Infusion: 03/03/24 21:20 Dose: Infused Documented By: Admin: 03/03/24 18:29 Dose: 999 mls/hr Documented By: LAZARO Sodium Phosphate 24 mmol/ (Sodium Chloride) 508 mls @ 125 mls/hr IV NOW STA Stop: 03/04/24 04:20 Last Infusion: 03/04/24 05:13 Dose: Infused Documented By: Admin: 03/04/24 00:56 Dose: 125 mls/hr Documented By: MARIPOSA Levetiracetam (Levetiracetam 500 Mg/5 Ml Vial) 1,000 mg IV NOW STA Stop: 03/03/24 18:17 Last Admin: 03/03/24 18:31 Dose: 1,000 mg Documented By: LAZARO Description This is a 21 electrode EEG with a single channel dedicated to limited EKG. The electrodes were placed in accordance with the International 10-20 system. Report: At the onset of the EEG the patient appears asleep or drowsy. The background is continuous with loss of the normal anterior to posterior gradient. The background predominantly consists of an admixture of theta delta activity. Photic stimulation does not induce any additional abnormalities. No clear stage 2 sleep transients are seen. Interpretation Impression: This is an abnormal drowsy routine EEG due to generalized background slowing suggestive of a mild nonspecific encephalopathy. No epileptiform activity is seen. A follow-up EEG when the patient is more alert may be beneficial to better characterize the awake background.
--- NOTE | 2024-03-04 11:21 | Neurology Consultation ---
Date of Consultation March 04, 2024 Assessment & Plan (1) Seizure: 38 yo woman with history of epilepsy, silent right occipital stroke of unknown etiology, who stopped taking Keppra due to side effects (headache, confusion) and is now presenting with breakthrough seizure due to non-compliance. Now at baseline, we discussed other AED options like Vimpat, she agreed to try Vimpat. Needs to follow up with her OP neurologist for ongoing chronic stroke workup and Seizure management. Plan -Vimpat 200 mg once. Then 100 mg BID -Consider OP titration of Lamictal -Follow up with her established neurologists for further management. I ll send her neurologist a message. -Stop Keppra due to side effects and risk of non-compliance. -Please report to [facility]. she was instructed not to drive. Telehealth Consultation Telehealth Information Telehealth Information: I performed this visit using a real-time telehealth connection between my location and the patients location ([facility]). After connecting through interactive tele-video, patient was identified by name and date of and/or wristband check.Patient (or authorized healthcare software support representative) was informed that this was a telemedicine visit and it was being conducted confidentially over secure lines. My office door was closed and no one else was present in the room with me.Patient (or authorized healthcare software support representative) provided consent to proceed with the visit, expressed an understanding of privacy and security of the telemedicine visit, and gave permission to have a hospital software support representative in the room in order to assist with the visit and to conduct portions of the visit, as needed. I informed the patient (or authorized healthcare software support representative) that I reviewed their record and presented the opportunity for them to ask any questions regarding the visit today. The patient agreed to participate. History of Present Illness Reason for Consultation: seizure Attending Physician: David Campoverde MD History of Present Illness 36 yo woman with hx of hepatitis B, presented to the ED after seizure like activity at home. Also reported abdominal pain. BS 82, Na 137, K 3.7, phosphorus 2.7. Utox negative. Ethanol <10. She was started on Keppra 1 gr and Rocephin for UTI. Patient states she took a nap, she has no recollection of events. Her told her that she started shaking. She noted tongue biting on both sides and subsequent fatigue, headache, dysarthria, she knew what to say to EMS but she could not. Denies urinary incontinence. In 2022, she had a similar episode with generalized shaking and tongue biting and subsequent difficulty to talk, she was started on Keppra which was stopped by her due to headache, dizziness, that she attributed to Keppra. She Seizure history Onset: 2022 Semiology: during sleep, sudden generalized shaking with post-ictal confusion, aphasia, dysartrhia. Frequency: two episodes Last seizure: 03/03/24 Seizure risk factors: -PROFESSOR OF RELIGION infection: No -Head trauma with LOC: "I dont remember" -Febrile seizure: No -Hx of stroke/structural lesion: encephalomalacia Medication Hx: Current AEDs: Keppra started 2022 Current side effects: None Prior/Failed AEDs: None Prior Diagnostic Work-up: CT head: EEG: Psych Comorbidities: denies Driving:no Allergies Allergy/AdvReac Type Severity Reaction Status Date / Time No Known Allergies Allergy Verified 03/03/24 21:43 Home Medications Medication Instructions Recorded Confirmed Type aspirin 81 mg tablet,delayed 81 mg PO QAM 30 days #30 tabs 12/13/22 03/03/24 Rx release atorvastatin 40 mg tablet 40 mg PO QAM 30 days #30 tabs 12/13/22 03/03/24 Rx multivitamin 1 tab PO DAILY 01/14/23 03/03/24 History levetiracetam 500 mg tablet 1,000 mg PO HS 03/03/24 03/03/24 History (Keppra) Patient History Medical History (Updated 03/03/24 @ 23:24 by Hammad Doll, DO) Stroke Incidentally noted on imaging Neuro feels areas of encephalomalacia are old (suspect from childhood possibly) Bladder stones NO SURGERY>PT UNSURE OF DETAILS Hepatitis B Currently under observation per records Hyperlipidemia History of COVID-28 FEB 2022>RESOLVED Seizure 12/15/22 EVENT, HOSPITALIZED AT [facility] *FOLLOWED BY [facility] NEUROLOGY MRI SHOWED RIGHT SIDE ENCEPHALOMALACIA AND GLIOSIS WITH EVIDENCE OF PRIOR ISCHEMIA STARTED ON KEPPRA PER 12/13/22 DSICHARGE SUMMARY Surgical History Nausea and vomiting after administration of anesthetic agent + ITCHING ALL OVER WITH History of section X 2 History of esophagogastroduodenoscopy (EGD) Family History Other No family history of adverse response to anesthesia Social History Smoking Status: Never smoker Second Hand Exposure: No; Hx Alcohol Use: No Hx Substance Use: No Preferred Language: Hungarian Communication Ability: Effective 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 Beliefs That Will Affect Care: None Current Living Situation: Spouse and Family Current Living Situation Comment: AND CHILDREN Feels Safe at Home: Yes Safety Concerns: Feels Safe At This Time Assistive Devices: None Results & Data Vital Signs (Past 12 Hours) Vital Signs Pulse Pulse Resp BP BP Pulse Ox Pulse Ox 03/04/24 07:30 68 03/04/24 06:33 68 18 169/90 H 96 03/04/24 03:00 71 18 123/62 98 03/04/24 03:00 99 03/04/24 03:00 03/04/24 02:28 72 03/04/24 02:27 68 20 128/66 97 O2 Del Method O2 Del Method 03/04/24 07:30 03/04/24 06:33 03/04/24 03:00 Room Air 03/04/24 03:00 Room Air 03/04/24 03:00 Room Air 03/04/24 02:28 03/04/24 02:27 Room Air Laboratory Results Abnormal lab results 03/03/24 03/04/24 03/04/24 Range/Units 18:42 00:45 03:44 RBC 4.14 L 4.03 L (4.20-5.40) M/uL Hgb 11.4 L 11.2 L (12.0-16.0) g/dl Hct 36.1 L 34.6 L (37.0-47.0) % MCHC 31.6 L (32.0-36.0) g/dL [place] # (Auto) 0.75 H (0.11-0.59) K/uL Potassium 3.4 L (3.5-5.1) mmol/L Chloride 109 H (98-107) mmol/L Calcium 8.4 L (8.6-10.3) mg/dl Phosphorus 1.5 L* (2.5-4.9) mg/dl Urine Nitrite Positive A (Negative) Ur Leukocyte Esterase Trace H (Negative) Urine Bacteria (Auto) 4+ H (None Seen) Diagnostic Findings Head CT 03/03/24 18:15 Exam(s): CT HEAD Without Contrast EXAM: CT Head Without Intravenous Contrast CLINICAL HISTORY: Reason for exam: seizure. TECHNIQUE: Axial computed tomography images of the head/brain without intravenous contrast. CTDI is 68.31 mGy and DLP is 1098.96 mGy-cm. Automated exposure control was utilized for the study. A dose lowering technique was utilized adhering to the principles of ALARA. COMPARISON: CT head on 12/11/2022. MRI brain on 12/12/2022. FINDINGS: Brain: No acute infarct or hemorrhage. No extra-axial fluid collection. No mass effect or midline shift. Stable encephalomalacia in the right parietal region. Ventricles and sulci: Ex vacuo dilatation of the right lateral ventricle. No ventriculomegaly or intraventricular hemorrhage. Bones: Normal. No bony lesion or acute fracture. Subcutaneous tissues: Normal. Sinuses: Normal. No air-fluid levels or mucosal thickening. Mastoid air cells: Normal. Orbits: Grossly unremarkable. IMPRESSION: 1. No acute intracranial abnormality. 2. Stable encephalomalacia in the right parietal region. Electronically signed by: Talisha Lazo M.D. 03/03/24 20:12 PM Medications Administered Home Medications Medication Instructions Recorded Confirmed Last Taken aspirin 81 mg tablet,delayed 81 mg PO QAM 30 days #30 tabs 12/13/22 03/03/24 03/03/24 release atorvastatin 40 mg tablet 40 mg PO QAM 30 days #30 tabs 12/13/22 03/03/24 03/03/24 multivitamin 1 tab PO DAILY 01/14/23 03/03/24 03/03/24 levetiracetam 500 mg tablet 1,000 mg PO HS 03/03/24 03/03/24 03/02/24 (Kelori) Active Medications Generic Name Dose Route Start Last Admin Trade Name Freq PRN Reason Stop Dose Admin Aspirin 81 mg 03/04/24 09:00 03/04/24 10:12 Aspirin 81 Mg Ectab PO 04/03/24 08:59 81 mg QAM [facility]A Administration Atorvastatin Calcium 40 mg 03/04/24 09:00 03/04/24 10:39 Atorvastatin 40 Mg Tab PO 04/03/24 08:59 Not Given QAM [facility]A Enoxaparin Sodium 40 mg 03/04/24 03:30 03/04/24 03:34 Enoxaparin Inj 40 Mg/0.4 Ml Syr SQ 04/03/24 03:29 40 mg Q12H [facility] Administration Sodium Chloride 1,000 mls @ 100 mls/hr 03/04/24 03:04 03/04/24 03:35 Nss IV 03/04/24 13:03 100 mls/hr .Q10H [facility] Administration Levetiracetam 500 mg/ Sodium 105 mls @ 420 mls/hr 03/04/24 08:00 03/04/24 08:19 Chloride IV 04/03/24 07:59 Infused Q12H [facility] Infusion Ceftriaxone Sodium 2,000 mg in 50 mls @ 100 mls/hr 03/04/24 08:30 03/04/24 08:51 Rocephin IV 03/09/24 08:29 100 mls/hr Q24H [facility] Administration Multivitamins 1 tab 03/04/24 09:00 03/04/24 10:12 Multivitamin Tab PO 04/03/24 08:59 1 tab DAILY [facility]A Administration
--- NOTE | 2024-03-04 15:40 | Electrocardiogram Report ---
Test Reason : Blood Pressure : / mmHG Vent. Rate : 093 BPM Atrial Rate : 093 BPM P-R Int : 170 ms QRS Dur : 084 ms QT Int : 362 ms P-R-T Axes : 054 066 045 degrees QTc Int : 450 ms Normal sinus rhythm Possible Left atrial enlargement Nonspecific ST abnormality Abnormal ECG When compared with ECG of 11-DEC-2022 21:36, No significant change was found Confirmed by Tommie Armando ([id number]) on 03/04/2024 3:40:20 PM Referred By: REFERRED SELF Confirmed By:Tommie Armando
--- NOTE | 2024-03-04 16:10 | Discharge Summary ---
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 Seizure lasted about one-minute as per . Initially in the ER she was postictal. Currently alert and awake and oriented x 3 but speaking in very low volume. During the episode possible biting of tongue as per . No incontinence. Patient currently has headache 6/10 severity. D enies any blurred visions. No earache or runny nose or sore throat. No cough. Afebrile. Denies any chest pain or shortness of breath. Denies nausea. No abdominal pain. Normal bowel and bladder movements. Prior to the episode she was eating and drinking and ambulating okay. Past medical history. As mentioned above . Past surgical history. . EGD. Social history. . No smoking. No alcohol use. No drug use. Family history. Son has autism. Admission Exam Per Admitting Provider General- Not in distress Head- atraumatic Eyes- PERRL. ENT- oropharynx clear Neck- supple, no JVD. Lungs- clear to auscultation no wheezing or crackles. Heart- regular rhythm; no murmur, no gallop. Abdomen- normal bowel sounds, soft, nontender, no distension Extremities- no pretibial edema, no erythema seen Neuro- alert, oriented x 3; PERRL,no facial palsy; no dysarthria; obeys simple commands, moves extremities. Principal Diagnosis Seizure, UTI Discharge Exam General- obese F in NAD Head- atraumatic Eyes- PERRL. Neck- supple Lungs- clear to auscultation no wheezing or crackles. Heart- regular rhythm; no murmur Abdomen- normal bowel sounds, soft, nontender, obese, no distension Extremities- no pretibial edema, no erythema seen Neuro- alert, oriented x 3; PERRL,no facial palsy; no dysarthria; answers appropriately, moves extremities. Discharge Data Allergies Allergy/AdvReac Type Severity Reaction Status Date / Time No Known Allergies Allergy Verified 03/03/24 21:43 Consultations 03/03/24 21:18 ED Decision to Admit Stat 03/04/24 08:00 Consult Neurology Routine Ordered Studies 03/03/24 18:15 CT head/brain wo con Stat FINDINGS: Brain: No acute infarct or hemorrhage. No extra-axial fluid collection. No mass effect or midline shift. Stable encephalomalacia in the right parietal region. Ventricles and sulci: Ex vacuo dilatation of the right lateral ventricle. No ventriculomegaly or intraventricular hemorrhage. Bones: Normal. No bony lesion or acute fracture. Subcutaneous tissues: Normal. Sinuses: Normal. No air-fluid levels or mucosal thickening. Mastoid air cells: Normal. Orbits: Grossly unremarkable. IMPRESSION: 1. No acute intracranial abnormality. 2. Stable encephalomalacia in the right parietal region. 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 Seizure lasted about one-minute as per . Initially in the ER she was postictal. Currently alert and awake and oriented x 3 but speaking in very low volume. During the episode possible biting of tongue as per . No incontinence. Patient currently has headache 6/10 severity. Denies any blurred visions. No earache or runny nose or sore throat. No cough. Afebrile. Denies any chest pain or shortness of breath. Denies nausea. No abdominal pain. Normal bowel and bladder movements. Prior to the episode she was eating and drinking and ambulating okay. Seizure history of seizure and on Keppra/ non taking always as prescribed d/t side effects received IV Keppra 1000 mg in ED continued with IV Keppra 500 mg twice daily IV Ativan as needed for breakthrough seizures EEG obtained - Impression: This is an abnormal drowsy routine EEG due to generalized background slowing suggestive of a mild nonspecific encephalopathy. No epileptiform activity is seen. A follow-up EEG when the patient is more alert may be beneficial to better characterize the awake background. Neurology consulted - 38 yo woman with history of epilepsy, silent right occipital stroke of unknown etiology, who stopped taking Keppra due to side effects (headache, confusion) and is now presenting with breakthrough seizure due to non-compliance. Now at baseline, we discussed other AED options like Vimpat, she agreed to try Vimpat. Needs to follow up with her OP neurologist for ongoing chronic stroke workup and Seizure management. Plan -Vimpat 200 mg once. Then 100 mg BID -Consider OP titration of Lamictal -Follow up with her established neurologists for further management. Appointment w/ neurology scheduled. -Stop Keppra due to side effects and risk of non-compliance. -Please report to [facility]. she was instructed not to drive. UTI UA c/w UTI - started rocephin - follow urine cultx - will DC on cefuroxime, follow up with PCP history of stroke history of PFO on aspirin there is a plan for closure of PFO morbid obesity needs counseling hyperlipidemia on statin Total Time Total Time Spent Total Time Spent (In Minutes): 40 Discharge Plan Discharge Items Patient Disposition: Home - Self-Care Reason For Visit: SEIZURE Discharge Diagnosis: Seizure, UTI Activity: Per Instructions section Non-emergency contact: Primary Care Provider and Neurologist Call non-emergency contact if: you have any medication questions and your symptoms worsen Follow-up/Referrals: Shayla James PA-C [Physician [facility]] - (Date & Time 03/18/2024 3:20 PM Provider Shayla James PA-C Department Neurology [facility] ) Maribell Salinas DO [Primary Care Provider] - (Date & Time 03/11/2024 11:20 AM Provider Maribell Salinas DO Department Family Practice [facility] ) Diet: Heart Healthy Addtl Attending Provider Instructions: Follow up with your primary care doctor and neurologist. Stop taking Keppra and instead take Vimpat 100 mg twice a day (starting tomorrow morning - 5/ AM). Finish antibiotic treatment for possible UTI. Pending Studies at Discharge: Yes Studies:: final urine cultx Stand-Alone Forms: [employer], Smoking Cessation Medications and DC Order Prescriptions: New lacosamide [Vimpat] 50 mg Tablet 100 mg PO BID Qty: 60 0RF cefuroxime axetil 250 mg tablet 250 mg PO BID Qty: 10 0RF Rx Instructions: start on 24 AM Continued atorvastatin 40 mg Tablet 40 mg PO QAM 30 Days Qty: 30 1RF aspirin 81 mg Tablet,Delayed Release (Dr/Ec) 81 mg PO QAM 30 Days Qty: 30 1RF multivitamin Tablet 1 tab PO DAILY Patient Comments: "when remembers to take" Discontinued levetiracetam [Keppra] 500 mg tablet 1,000 mg PO HS Discharge Orders: Discharge Order (Routine); Ordered 03/04/24 Ordered By: David Campoverde Admission Data Admit Date/Time: 03/04/24 00:40 Attending Provider: David Cmapoverde Admit Provider: Jony Magallanes Primary Care Provider: Maribell Salinas Other Providers: Jony Magallanes; Shayla James; Jc Morrison; Shayla Sandoval; Maikel Brar; Catrachito Gonzalez; Doron Sapp; Vivek Morton; Lucy Steinberg; Alvaro Lyons; Bj Preston; Ernestine Ordaz; Bill Brown; Alison Joseph; Mayi Soliman; Vivek Rios
[2024-03-04] MEDS: POTASSIUM CHLORIDE CRTAB 20 MEQ TABCR PO STA (16:58)
[2024-03-04] MEDS: LACOSAMIDE 50 MG TABLET PO ONE (16:58)
--- OUTSIDE RECORDS SUMMARY | 2024-03-05 00:37 | External Medical Summary ---
Author Name Unknown Address Unknown Organization [id number]:[facility] [place] - [address] [place] [address] Laboratory Report Ordering Provider Test Date Status JACQUELYN PATRICK 02/10/2024 11:45:08 Final Observation Date Value Abnormality Reference (Units ) Status Albumin 02/10/2024 11:45:08 4.3 3.8-5.0 (g/dL) Final AST (Aspartate aminotransferase) 02/10/2024 11:45:08 24 10-35 (U/L) Final Alk Phos 02/10/2024 11:45:08 67 35-130 (U/L) Final ALT (Alanine aminotransferase) 02/10/2024 11:45:08 33 10-35 (U/L) Final Bilirubin, Total 02/10/2024 11:45:08 0.7 <=1.2 (mg/dL) Final Bilirubin, Direct 02/10/2024 11:45:08 <0.2 0.0-0.3 (mg/dL) Final Protein 02/10/2024 11:45:08 7.2 6.0-8.3 (g/dL) Final Performing Location [facility] [place] - [address] [place] [id number]
--- OUTSIDE RECORDS SUMMARY | 2024-03-05 00:37 | External Medical Summary | Summary of Care ---
Author Name Unknown Organization [facility] Address [address] [place] [place] [address] Phone [phone] Care Team Providers Care Senior Cost Accountant Name Role Phone Maribell Salinas DO Primary Care Provider [phone] Reason for Visit * Reason Comments Outpatient Testing Encounter Details Date Type Department Care Team (Late st Contact Info) Description 02/10/2024 12:10 PM EDT Laboratory Laboratory, [facility] [address] [place] [address] [facility] [address] [place] [address] Chronic viral hepatitis B without delta agent and without coma (HCC); [employer] Other*[id number] Allergies No known active allergiesdocumented as of this encounter (statuses as of 02/10/2024) Medications Medication Sig Dispensed Refills Start Date End Date Status Paragard Intrauterine Copper Intrauterine Intrauterine Device Insert 1 Each into uterus once. 0 Active Aspirin 81 MG Oral Tablet Delayed Release Take 1 Tablet by mouth in the morning. 90 Tablet 1 03/27/2023 Active Atorvastatin Calcium 40 MG Oral Tablet (Lipitor) Take one each morning 30 Tablet 5 06/20/2023 Active Additional Information Patient not taking.Reported on 12/26/2023 Diclofenac Sodium 1 % External Gel (Voltaren) Apply topically to affected area 3 times a day as needed for Pain. Apply to affected 100 g 2 11/19/2023 Active levETIRAcetam ER 500 MG Oral Tablet Extended Release 24 Hour (Keppra XR) Take 2 at bedtime 60 Tablet 5 12/26/2023 Active documented as of this encounter (statuses as of 02/10/2024) Active Problems Problem Noted Date Diagnosed Date Seizures 09/17/2023 Overview: Follows with Neurology. Currently transitioning from Keppra to Lamictal due to side effects. Seizures felt to be related to area of prior stroke. Last Assessment & Plan: CONSIDERATIONS: Most women will have no alteration of their seizure pattern during . Potential risks to a can be minimized by preconception planning and careful management with anti-epileptic drugs during . Discussed that the overall rate of congenital abnormalities associated with maternal intake of AEDs is 6-8%, but there is no clear data indicating that any drug is without or has less risk in . It is therefore suggested that patients planning should be managed on the most effective anti-epileptic medications for their seizures. Monotherapy and the lowest possible drug dose may limit risk of teratogenicity. Recommend patient be monitored and medication managed/titrated by neurology throughout and period. Lamictal - Possible increased risk for oral clefting (<1%), however this has not been confirmed in large studies. May require dose adjustments during , therefore recommend monitoring with prescribing provider. Lamictal is secreting in breast milk, but at acceptable levels. While most infants do not have side effects, patients should monitor infants for trouble breathing, sleepiness, poor sucking or rash. Encounter for preconception consultation 023 Overview: Currently has paraguard IUD in place. Last Assessment & Plan: DISCUSSION: 1. Explained that the goal of pre-conception care is to identify and modify medical, behavioral and social risks to a woman's health or outcome through prevention and management. A multi-disciplinary care approach may be indicated specific to the patient's medical problems. 2. Discussed patient's and partner s family history of heritable genetic disorders. RECOMMENDATIONS: 1. Start daily vitamin supplementation with at least 400 micrograms folic acid. 2. Ensure patient is up-to-date with her immunizations. Assess maternal immunity to rubella and varicella prior to conception. If indicated, MMR and VZV should be administered greater than 1 month prior to conception. Recommend annual influenza vaccination for the patient and her partner to reduce risk of maternal infection. Tdap vaccination should be offered to women who have not been vaccinated in the past 2 years. 3. Recommend appropriate routine exercise and proper diet. Consider referral to a warehouseman prior to conception for maternal conditions that may adversely affect maternal nutritional status including obesity, diabetes, history of gastric bypass, hypertensive disorders, underweight and/or history of gastrointestinal or eating disorders. Advise regular physical activity for 30-60 minutes/day for 5 or more days per week. 4. A detailed history of prescribed and over the counter medications, teratogens, including chemical radiation exposures, infections and tobacco, alcohol or substance abuse should be obtained at least annually for all women of reproductive age. The vast majority of prescribed medications are safe in , even in the first trimester. Patient's current medication/teratogen exposures were reviewed with the patient at today's consult visit. Patient was advised to abstain from alcohol preconceptionally. 5. Reviewed the concept of carrier screening, including benefits, risks, and limitations. Reviewed ACOG's screening recommendations (cystic fibrosis, spinal muscular atrophy, and hemoglobinopathies). Patient is aware that both her and her partner need to be carriers of a recessive condition to have a child that is affected, the risk of an affected child would be 25%. 6. Recommend patient seek early care once is confirmed. AMA (advanced maternal age) multigravida 35+ 03/2023 Last Assessment & Plan: CONSIDERATIONS: We reviewed the most pertinent aspects of the following: Advanced maternal age (AMA) refers to a woman with a lacey who will be at the age of 35 or older at the estimated time of delivery and may be associated with increased morbidity. In addition to the risk of chromosomal abnormalities, there is an increased risk of congenital/structural anomalies. RECOMMENDATIONS: Patients 40 or greater at MEET require additional surveillance during . Obesity, Class III, BMI 40-49.9 (morbid obesity) 09/17/2023 Overview: Current BMI 41 Last Assessment & Plan: DISCUSSION: 1. Discussed preconception and early risks in setting obesity, including subfertility, PCOS, CHTN, diabetes and miscarriage 2. Weight loss can improve ovulatory function and conception rates 3. Discussed obstetrical risks associated with class III obesity (pre- BMI of greater than or equal to 40) including increased incidence of: spontaneous miscarriage, recurrent loss, diabetes in , hypertension/preeclampsia, IUFD, macrosomia and shoulder dystocia, hemorrhage or infection, venous thromboembolism, increased length of labor and delivery, complications with anesthesia, as well as a possibly increased risk of congenital anomalies (neural tube defects, cardiovascular, orofacial). 4. Reviewed that the accuracy of ultrasound at diagnosing anomalies is significantly decreased for women with an increased BMI. RECOMMENDATIONS: 1. Recommend weight loss of at least 5-10% for optimizing fertility/reproductive functioning and to decrease risks to future (described above) 2. Consider referral to medically supervised weight management program and/or bariatric surgery Chronic hepatitis B 09/16/2023 Overview: Component Latest Ref Rng 04/14/2023 Hepatitis B Virus DNA IU/mL <10 IU/mL 257 Hepatitis B Virus DNA Log (IU/mL) <1.00 Log (IU/mL) 2.41 Hepatitiis BE Antigen Nonreactive Last Assessment & Plan: Discussed that in general, does not appear to alter the course of chronic hepatitis B infection. Reactivation of the virus and exacerbation of the disease during or after gestation are uncommon. Additionally, hepatitis B infection does not increase the risk for obstetric complications or teratogenicity. Explained that the placenta forms an excellent barrier against transmission of this large virus, and intrauterine infection with hepatitis B is rare. However, transplacental transmission due to leakage can occur, such as during a threatened or delivery. Transmission rates are high if the mother is hepatitis B e antigen positive (85-90%) or has high circulating levels of hepatitis B DNA (as with acute infection) at time of delivery. Transmission rates are approximately 32% in mothers who are hepatitis B e antigen negative. Neonates treated with both hepatitis B hyperimmune globulin (HBIG) and vaccine within 12 hours of delivery interrupts transmission in over 90% of cases. is not contraindicated for mothers with hepatitis B infection. Recommend vaccines for hepatitis A, pneumococcal vaccine and flu vaccine. Patients should limit drugs such as Tylenol, and alcohol which can cause further liver damage in higher doses. Partial symptomatic epilepsy with complex partial seizures, not intractable, without status epilepticus 02/26/2023 PFO (patent foramen ovale) 02/26/2023 Embolic stroke involving right middle cerebral a rtery 02/26/2023 Chronic viral hepatitis B wi thout delta agent and without coma 01/02/2023 New onset seizure 12/27/2022 Interatrial cardiac shunt 12/27/2022 Cerebral infarction 12/27/2022 Overview: 12/2022: presented to the ED with seizure like activity. MRI of the brain showed right sided encephalomalacia consistent with prior ischemia (however unclear timing), CTA of the head and neck were unremarkable, TTE showed a small interatrial shunt consistent with PFO. Has been managed with low dose aspirin, Keppra (transitioning to lamictal due to side effects) and a statin. Last Assessment & Plan: DISCUSSION: increases the risk of stroke with the incidence of stroke in ranging from 4.3 - 210 strokes/100,000 deliveries. Also reviewed the increased risk of VTE in . Most data suggests the risk is greatest in the third trimester and . While some studies specific to PFO-related stroke saw an increased risk in the first/second trimester. Of the patients who experience recurrent PFO-related stroke in , the following risks were present: atrial septal aneurysm, larger right to left shunt, multifetal gestation, hypercoagulable state and maternal comorbidities (such as obesity, HTN, diabetes and atrial fibrillation). RECOMMENDATIONS: Recommend continuing to follow with Neurology. Recommend re-evaluation by Cardiology to see if closure of the PFO is indicated, especially prior to a planned , to decrease the risk of recurrence. Recommend evaluation for hypercoagulable states, including inherited and acquired thrombophilias. Recommend patient continue LDA therapy during . Pharmacologic anticoagulation is not routine recommended for PFO, but may be considered in patients with high risk status, such as a hypercoagulable state. Discussed the need to stop statin therapy with . Hiatal hernia 03/19/2022 Overview: Seen on EGD 03/2022 documented as of this encounter (statuses as of 02/10/2024) Immunizations Name Administration Dates Next Due COVID-19 mRNA, LNP-s, No Pre serve, 2-Dose Series (Pfizer) 10/28/2021,03/23/2021,01/03/2021 Hepatitis B Vaccine, Recombi nant, Adjuvanted, 20 mcg/mL (Heplisav-B) 07/16/2023 MMR-NAHED - Measles/Mumps/Rube lla/Varicella Vaccine 07/14/2023 Seasonal Influenza, Quadriva lent, No Preserve, IM 07/12/2023 TDAP (age 10 and older)(Boostrix) 07/14/2023 documented as of this encounter Social History Tobacco Use Types Packs/Day Years Used Date Smoking Tobacco: Never Smokeless Tobacco: Never Alcohol Use Standard Drinks/Week Comments Never 0 (1 standard drink = 0.6 oz pur e alcohol) Sex and Gender Information Value Date Recorded Sex Assigned at Not on file Gender Identity Not on file Sexual Orientation Not on file Job Start Date Occupation Industry Not on file Not on file Not on file documented as of this encounter Plan of Treatment Upcoming Encounters Date Type Department Care Team (Late st Contact Info) Description 03/23/2024 10:15 AM EDT Imaging Radiology [facility] [address] [facility] [place] [address] 06/29/2024 2:00 PM EDT Office Visit Gynecology/Obstetrics [facility] [address] [facility] [place] [id number] Anais Liu CRNP [address] [facility] [place] [address] 07/02/2024 10:00 AM EDT Telemedicine Neurology [facility] [place] [address] [facility] [place] [place] [address] Shayla Sandoval MD [address] [facility] [place] [address] Pending Results Name Type Priority Associated Diagnoses Date /Time HEPATIC FUNCTION PANEL Lab Routine Chronic viral hepatitis B without delta agent and without coma (HCC) 02/10/2024 11:45 AM EDT HEPATITIS B VIRUS DNA, QUANTITATIVE, REAL-TIME PCR Lab Routine Chronic viral hepatitis B without delta agent and without coma (HCC) 02/10/2024 11:45 AM EDT HEPATITIS BE ANTIGEN Lab Routine Chronic viral hepatitis B without delta agent and without coma (HCC) 02/10/2024 11:45 AM EDT MYCODE SUBSEQUENT ADULT Lab Routine [employer] Other*[id number] 02/10/2024 11:45 AM EDT MYCODE SST1 Lab Routine [employer] Other*[id number] 02/10/2024 11:45 AM EDT MYCODE SST2 Lab Routine [employer] Other*[id number] 02/10/2024 11:45 AM EDT Health Maintenance Due Date Last Done Comments Depression Screening 1995 HIV Screening 12/19/1998 COVID-19 Vaccine ( season) 2023 10/28/2021, 03/23/2021, 01/03/2021 Hepatitis B (2 of 2 - CpG 2-dose series) 08/13/2023 07/16/2023 Mammogram 12/21/2024 12/22/2023 Diabetes Screening 04/14/2026 04/14/2023, 1 , 04/22/2022, Additional history exists Pap Smear 05/28/2026 05/28/2023 Cervical Cancer Screening 05/28/2028 HPV/Co-Test 05/28/2028 05/28/2023 DTaP,Tdap,and Td Vaccines (2 - Td or Tdap) 07/14/2033 07/14/2023 Hepatitis C Screening Completed 09/13/2021 Influenza Vaccine (FLU shot) Completed 07/12/2023 GARDASIL-HPV IMMUNIZATION SERIES Aged Out No longer eligible based on patient's age to complete this topic MENINGOCOCCAL (MENACTRA/MENVEO) Aged Out No longer eligible based on patient's age to complete this topic Pneumococcal Vaccine: Pediatrics (0 to 5 Years) and At-Risk Patients (6 to 64 Years) Aged Out No longer eligible based on patient's age to complete this topic documented as of this encounter Medical Devices Not on filedocumented as of this encounter Visit Diagnoses Diagnosis Chronic viral hepatitis B without delta agent and without coma (HCC) [employer] Other*[id number] documented in this encounter Care Teams Senior Cost Accountant Relationship Specialty Start Date End Date Maribell Salinas DO [address] [place] [address] PCP - General Family Medicine 02/26/23 documented as of this encounter
--- OUTSIDE RECORDS SUMMARY | 2024-03-05 00:37 | External Medical Summary | Summary of Care ---
Author Name Unknown Organization [facility] Address [address] [place] [facility] [place] [place] [place] [address] Phone [phone] Care Team Providers Care It Admin Name Role Phone Maribell Salinas DO Primary Care Provider [phone] Reason for Visit * Reason Onset Date Comments Advice 02/13/2024 Encounter Details Date Type Department Care Team (Late st Contact Info) Description 02/13/2024 Telephone Family Practice [facility] [address] [facility] [address] Maribell Salinas DO [address] [facility] [place] [address] Advice Allergies No known active allergiesdocumented as of this encounter (statuses as of 02/13/2024) Medications Medication Sig Dispensed Refills Start Date [...] as of this encounter (statuses as of 02/13/2024) Active Problems Problem Noted Date Diagnosed Date [...] and proper diet. Consider referral to a training project manager prior to conception for maternal conditions that [...] as of this encounter (statuses as of 02/13/2024) Immunizations Name Administration Dates Next Due COVID-19 [...] on file documented as of this encounter Miscellaneous Notes * Telephone Encounter - Lali Adames LPN - 02/13/2024 2:04 PM EDT Roberta calling from [facility]. She received positive Hep B Results from 02/09. She wanted to know if patient was : do not see anything in chart that would indicate that she is. Patient has chronic Hep B and they have been following her. No further questions at this time. documented in this encounter Plan of Treatment Upcoming Encounters Date Type Department Care Team (Late st Contact Info) Description 03/23/2024 10:15 AM EDT Imaging Radiology [facility] 132 [facility] [place] [address] 06/29/2024 2:00 PM EDT Office Visit Gynecology/Obstetrics [facility] [address] [place] [address] BackerAnais CRNP 132 [facility] [place] [address] 07/02/2024 10:00 AM EDT Telemedicine [facility] [place] [place] [address] [facility] [place] [address] Shayla Sandoval MD 200 [facility] [place] [address] Health Maintenance Due Date Last Done Comments [...] Not on filedocumented as of this encounter Care Teams It Admin Relationship Specialty Start Date End Date Maribell Salinas DO [address] [place] [address] PCP - General Family Medicine 02/26/23 documented as of this encounter
--- OUTSIDE RECORDS SUMMARY | 2024-03-05 00:38 | External Medical Summary | Summary of Care ---
Author Name Unknown Organization [facility] Address [address] [place] [facility] [place] [address] Phone [phone] Care Team Providers Care Refinery Operator Reforming Unit Name Role Phone Maribell Salinas DO Primary Care Provider [phone] Reason for Visit * Reason Onset Date Comments Medication Refill 12/15/2023 Encounter Details Date Type Department Care Team (Late st Contact Info) Description 12/12/2023 [facility] [address] [place] [address] Shayla Sandoval MD [address] [place] [address] Allergies No known active allergiesdocumented as of this encounter (statuses as of 12/15/2023) Medications Medication Sig Dispensed Refills Start Date End Date Status Paragard Intrauterine Copper Intrauterine Intrauterine Device Insert 1 Each into uterus once. 0 Active Aspirin 81 MG Oral Tablet Delayed Release Take 1 Tablet by mouth in the morning. 90 Tablet 1 03/27/2023 Active Atorvastatin Calcium 40 MG Oral Tablet (Lipitor) Take one each morning 30 Tablet 5 06/20/2023 Active lamoTRIgine 100 MG Oral Tablet (LaMICtal) Week 5 take 1/2 twice a day, week 6 take 1 in am 1/2 in pm, week 7 take 1 twice a day, week 8take 1 1/2 in am 1 in pm , week 9 and on 1 1/2 twice a day 90 Tablet 5 08/29/2023 Active lamoTRIgine 25 MG Oral Tablet (LaMICtal) Take one each morning week 1-2. Take 2 each morning week 3-4 then switch to 100 mg tabs 32 Tablet 0 08/29/2023 Active Diclofenac Sodium 1 % External Gel (Voltaren) Apply topically to affected area 3 times a day as needed for Pain. Apply to affected 100 g 2 11/19/2023 Active levETIRAcetam 250 MG Oral Tablet (Keppra) Weeks 1-2; 250 mg in am, 500 mg in pm Week 3-4; 250 mg twice a day Week 5-6; 250 mg once a day Week 7 STOP 60 Tablet 1 12/15/2023 Active levETIRAcetam ER 500 MG Oral Tablet Extended Release 24 Hour (Keppra XR) Take 2 at bedtime 60 Tablet 5 06/20/2023 12/12/19 24 Discontinued levETIRAcetam 250 MG Oral Tablet (Keppra) Take as directed by dose taper and dc 60 Tablet 1 12/12/2023 12/15/19 24 Discontinued(Ref ill) documented as of this encounter (statuses as of 12/15/2023) Active Problems Problem Noted Date Diagnosed Date [...] and proper diet. Consider referral to a mid teacher prior to conception for maternal conditions that [...] as of this encounter (statuses as of 12/15/2023) Immunizations Name Administration Dates Next Due COVID-19 mRNA, LNP-s, No Pre serve, 2-Dose Series ([employer]) 10/28/2021,03/23/2021,01/03/2021 Hepatitis B Vaccine, Recombi nant, Adjuvanted, [...] encounter Miscellaneous Notes * Telephone Encounter - Cherrie Rodriguez LPN - 12/15/2023 4:04 PM EST Made pt aware and they expressed understanding. Is going to wean off the keppra. Was just verifying that's was she was supposed to do and the instructions again * Telephone Encounter - Shayla Sandoval MD - 12/15/2023 11:36 AM EST Please call her to ask her what her question is about Keppra. She does not need blood work and she should keep her appointment * Telephone Encounter - Shayla Sandoval MD - 12/15/2023 10:07 AM ESTSigned Prescriptions: Disp Refills levETIRAcetam 250 MG Oral Tablet (Keppra) 60 Tab*1 Sig: Weeks 1-2; 250 mg in am, 500 mg in pm Week 3-4; 250 mg twice a day Week 5-6; 250 mg once a day Week 7 STOPAuthorizing Provider: SHAYLA SANDOVAL * Telephone Encounter - Cherrie Rodriguez LPN - 12/15/2023 9:58 AM EST Made pt aware and they expressed understanding. Informed her I would also send instructions via Lela reference * Telephone Encounter - Cherrie Rodriguez LPN - 12/15/2023 9:48 AM EST Pharmacy sent a fax asking for Rx clarification. I added the instructions to patient sig. Please verify they are correct and sign and route to pharmacy. * Telephone Encounter - Shayla Sandoval MD - 12/12/2023 2:44 PM EST Tell patient that Lamictal level is normal although on the low side of normal. We can begin tapering her Keppra however she has extended release Keppra and it does not come in lower mg amount so we will need to use 250 mg tabs to help taper. She should let us know if she has a sz. If she drives sheshould consider not driving for several months while we taper due to a risk of possible breakthrough sz Week 1-2 Keppra 250 mg in am , Keppra ER 500 mg in pm Week 3-4 Keppra 250 mg twice a day Week 5-6 Keppra 250 mg once a day Week 7 stop keppra documented in this encounter Plan of Treatment Upcoming Encounters Date Type Department Care Team (Late st Contact Info) Description 12/22/2023 10:45 AM EDT Imaging Radiology [facility] 1st [facility] [address] [place] [address] 12/26/2023 10:00 AM EDT Office Visit Neurology [facility] [address] [facility] [place] [address] Shayla Sandoval MD 200 [facility] [address] 12/31/2023 11:15 AM EDT Office Visit Orthopaedics [facility] [address] [place] [address] Alvaro Pritchard PA-C [address] [place] [address] 03/23/2024 10:30 AM EDT Imaging Radiology [facility] [address] [place] [address] 06/29/2024 2:00 PM EDT Office Visit Gynecology/Obstetrics [facility] [address] [place] [address] Joeer Anais ELIZABET Lerner [address] [place] [address] Health Maintenance Due Date Last Done Comments Depression Screening 1995 HIV Screening 12/19/1998 COVID-19 Vaccine ( season) 2023 10/28/2021, 03/23/2021, 01/03/2021 Hepatitis B (2 of 2 - CpG 2-dose series) 08/13/2023 07/16/2023 Diabetes Screening 04/14/2026 04/14/2023, 1 , 04/22/2022, [...] filedocumented as of this encounter Care Teams Refinery Operator Reforming Unit Relationship Specialty Start Date End Date Maribell Salinas DO [address] [place] [address] PCP - General Family Medicine 02/26/23 documented as of this encounter
--- OUTSIDE RECORDS SUMMARY | 2024-03-05 00:38 | External Medical Summary | Summary of Care ---
Author Name Unknown Organization [facility] Address [address] [place] [facility] [place] [address] Phone [phone] Care Team Providers Care Conveyor Worker Name Role Phone Maribell Salinas DO Primary Care Provider [phone] Encounter Details Date Type Department Care Team (Late st Contact Info) Description 12/02/2023 Telephone Neurology [facility] [address] [place] [address] Shayla Sandoval MD [address] [place] [address] Allergies No known active allergiesdocumented as of this encounter (statuses as of 12/02/2023) Medications Medication Sig Dispensed Refills Start Date End Date Status Paragard Intrauterine Copper Intrauterine Intrauterine Device Insert 1 Each into uterus once. 0 Active Aspirin 81 MG Oral Tablet Delayed Release Take 1 Tablet by mouth in the morning. 90 Tablet 1 03/27/2023 Active levETIRAcetam ER 500 MG Oral Tablet Extended Release 24 Hour (Keppra XR) Take 2 at bedtime 60 Tablet 5 06/20/2023 Active Atorvastatin Calcium 40 MG Oral Tablet [...] to affected 100 g 2 11/19/2023 Active documented as of this encounter (statuses as of 12/02/2023) Active Problems Problem Noted Date Diagnosed Date [...] and proper diet. Consider referral to a automotive buyer prior to conception for maternal conditions that [...] as of this encounter (statuses as of 12/02/2023) Immunizations Name Administration Dates Next Due COVID-19 [...] Description 12/22/2023 10:45 AM EDT Imaging Radiology [facility] 1st [facility] [place] [address] [place] [address] 12/26/2023 10:00 AM EDT Office Visit Neurology [facility] [address] [place] [address] Shayla Sandoval MD [address] [place] [address] 12/31/2023 11:15 AM EDT Office Visit Orthopaedics [facility] [address] [place] [address] Alvaro Pritchard PA-C [address] [place] [address] 03/23/2024 10:30 AM EDT Imaging Radiology [facility] [address] [place] [address] 06/29/2024 2:00 PM EDT Office Visit Gynecology/Obstetrics [facility] [address] [place] [address] Anais Liu CRNP [address] [place] [address] Pending Results Name Type Priority Associated Diagnoses Date /Time LAMOTRIGINE LEVEL Lab Routine Partial symptomatic epilepsy with complex partial seizures, not intractable, without status epilepticus (HCC) 12/02/2023 9:43 AM EST Scheduled Orders Name Type Priority Associated Diagnoses Orde r Schedule LAMOTRIGINE LEVEL Lab Routine Partial symptomatic epilepsy with complex partial seizures, not intractable, without status epilepticus (HCC) Expected: 12/02/2023, Expires: 12/02/2024 Health Maintenance Due Date Last Done Comments [...] as of this encounter Visit Diagnoses Diagnosis Partial symptomatic epilepsy with complex partial seizures, not intractable, without status epilepticus (HCC)- Primary documented in this encounter Care Teams Conveyor Worker Relationship Specialty Start Date End Date Maribell Salinas DO [address] [place] [address] PCP - General Family Medicine 02/26/23 documented as of this encounter
--- OUTSIDE RECORDS SUMMARY | 2024-03-05 00:38 | External Medical Summary ---
Author Name Unknown Address Unknown Organization : Laboratory Report Ordering Provider Test Date Status JACQUELYN PATRICK 02/10/2024 11:45:08 Final Observation Date Value Abnormality Reference (Units ) Status Hep B E Ag 02/10/2024 11:45:08 Nonreactive Final Reference range: Nonreactive
For additional information, please refer to
https://education.Funding Profiles/faq/NUG125
(This link is being provided for informational/
educational purposes only.)

Test Performed at:
[facility]
[address]
[place] [address]
Aamir Yung M.D., Ph.D.,Director of Laboratories Performing Location
--- OUTSIDE RECORDS SUMMARY | 2024-03-05 00:38 | External Medical Summary | Summary of Care ---
Author Name Unknown Organization [facility] Address [address] [place] [facility] [place] [address] Phone [phone] Care Team Providers Care L D Rn Name Role Phone Maribell Salinas DO Primary Care Provider [phone] Encounter Details Date Type Department Care Team (Late st Contact Info) Description 12/12/2023 Refill Neurology [facility] [place] [address] [place] [address] Georgette Sandoval MD [address] [place] [address] Allergies No known active allergiesdocumented as of [...] and proper diet. Consider referral to a jewelry racker prior to conception for maternal conditions that [...] mRNA, LNP-s, No Pre serve, 2-Dose Series ([employer]) 10/28/2021,03/23/2021,01/03/2021 Hepatitis B Vaccine, Recombi nant, Adjuvanted, [...] encounter Miscellaneous Notes * Telephone Encounter - Georgette Sandoval MD - 12/15/2023 10:07 AM ESTSigned Prescriptions: Disp Refills levETIRAcetam 250 MG Oral Tablet (Keppra) 60 Tab*1 Sig: Weeks 1-2; 250 mg in am, 500 mg in pm Week 3-4; 250 mg twice a day Week 5-6; 250 mg once a day Week 7 STOPAuthorizing Provider: GEORGETTE SANDOVAL * Telephone Encounter - Cherrie Rodriguez LPN - 12/15/2023 9:58 AM EST Made pt aware and they expressed understanding. Informed her I would also send instructions via Lucky Ant reference * Telephone Encounter - Cherrie Rodriguez LPN - 12/15/2023 9:48 AM EST Pharmacy sent a fax asking for Rx clarification. I added the instructions to patient sig. Please verify they are correct and sign and route to pharmacy. * Telephone Encounter - Georgette Sandoval MD - 12/12/2023 2:44 PM EST [...] Description 12/22/2023 10:45 AM EDT Imaging Radiology [facility] 1st [facility] [address] [place] [address] 12/26/2023 10:00 AM EDT Office Visit Neurology [facility] 200 [facility] [place] [address] Georgette Sandoval MD 200 [facility] [place] [address] 12/31/2023 11:15 AM EDT Office Visit Orthopaedics [facility] [address] [place] [address] Alvaro Pritchard PA-C [address] [place] [address] 03/23/2024 10:30 AM EDT Imaging Radiology [facility] [address] [place] [address] 06/29/2024 2:00 PM EDT Office Visit Gynecology/Obstetrics [facility] [address] [place] [address] JoeerAnais CRNP [address] [place] [address] Health Maintenance Due Date Last Done Comments [...] filedocumented as of this encounter Care Teams L D Rn Relationship Specialty Start Date End Date Maribell Salinas DO [address] [place] [address] PCP - General Family Medicine 02/26/23 documented as of this encounter
--- OUTSIDE RECORDS SUMMARY | 2024-03-05 00:38 | External Medical Summary | Summary of Care ---
Author Name Unknown Organization [facility] Address [address] [facility] [address] Phone [phone] Care Team Providers Care Entry Clerk Name Role Phone Maribell Salinas DO Primary Care Provider [phone] Reason for Visit * Reason Comments Outpatient Testing Encounter Details Date Type Department Care Team (Late st Contact Info) Description 12/26/2023 11:10 AM EDT Laboratory Laboratory [facility] [place] [address] [place] [phone] [place], Lab [address] [facility] [place] [address] Arrived Allergies No known active allergiesdocumented as of this encounter (statuses as of 12/26/2023) Medications Medication Sig Dispensed Refills Start Date [...] as of this encounter (statuses as of 12/26/2023) Active Problems Problem Noted Date Diagnosed Date [...] and proper diet. Consider referral to a review rn prior to conception for maternal conditions that [...] as of this encounter (statuses as of 12/26/2023) Immunizations Name Administration Dates Next Due COVID-19 mRNA, LNP-s, No Pre serve, 2-Dose Series ([employer]) 10/28/2021,03/23/2021,01/03/2021 Hepatitis B Vaccine, Recombi nant, Adjuvanted, [...] Care Team (Late st Contact Info) Description 12/31/2023 11:15 AM EDT Office Visit Orthopaedics [facility] [address] [place] [address] Alvaro Pritchard PA-C [address] [place] [address] 03/23/2024 10:30 AM EDT Imaging Radiology [facility] [address] [place] [address] 06/29/2024 2:00 PM EDT Office Visit Gynecology/Obstetrics [facility] [address] [place] [address] Anais Liu CRNP [address] [place] [address] 07/02/2024 10:00 AM EDT Telemedicine Neurology [facility] [place] [address] [facility] [address] Shayla Sandoval MD 200 [facility] [place] [address] Health Maintenance Due Date Last Done Comments Depression Screening 1995 HIV Screening 12/19/1998 COVID-19 Vaccine (2022- season) 2023 10/28/2021, 03/23/2021, 01/03/2021 Hepatitis B [...] filedocumented as of this encounter Care Teams Entry Clerk Relationship Specialty Start Date End Date Maribell Salinas DO [address] [place] [address] PCP - General Family Medicine 02/26/23 documented as of this encounter
--- OUTSIDE RECORDS SUMMARY | 2024-03-05 00:38 | External Medical Summary ---
Author Name Unknown Address Unknown Organization K01:[facility] [place] [address] [place] [address] Laboratory Report Ordering Provider Test Date Status GABRIELA PALOMINO 12/26/2023 11:14:37 Final Observation Date Value Abnormality Reference (Units ) Status Levetiracetam level 12/26/2023 11:14:37 <2 Below low normal 3-63 (ug/mL) Final Performing Location LABORATORY C - [address] [place] [address]
--- OUTSIDE RECORDS SUMMARY | 2024-03-05 00:38 | External Medical Summary | Summary of Care ---
Author Name Unknown Organization [facility] Address [address] [place] [address] Phone [phone] Care Team Providers Care Surgery Attendant Name Role Phone Maribell Salinas DO Primary Care Provider [phone] Reason for Visit * Reason Onset Date Comments Referral 09/12/2023 Encounter Details Date Type Department Care Team (Late st Contact Info) Description 09/12/2023 Telephone Transfer Machine Operator Obstetrics [facility] [place] [address] [place], [place] [id number] [place], Nurse Transfer Machine Operator [facility] [address] [place] [address] Referral Allergies No known active allergiesdocumented as of this encounter (statuses as of 12/12/2023) Medications Medication Sig Dispensed Refills Start Date [...] mg tabs 32 Tablet 0 08/29/2023 Active documented as of this encounter (statuses as of 12/12/2023) Active Problems Problem Noted Date Diagnosed Date [...] and proper diet. Consider referral to a assault amphibious vehicle officer prior to conception for maternal conditions that [...] as of this encounter (statuses as of 12/12/2023) Immunizations Name Administration Dates Next Due COVID-19 [...] encounter Miscellaneous Notes * Telephone Encounter - Kathy Schmitz OSA - 09/12/2023 9:28 AM EST Appointment scheduled * Telephone Encounter - Anita Gerardo LPN - 09/12/2023 8:41 AM EST Records Reviewed & Dating Scan Complete Estimated Date of Delivery: None noted. 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 Pt is contemplating and needs to be advised re risk, management Referring Provider: Shayla Gipson Sent to scheduling pool documented in this encounter Plan of Treatment Upcoming Encounters Date Type Department Care Team (Late st Contact Info) Description 12/22/2023 10:45 AM EDT Imaging Radiology [facility] 1st [facility] [address] [place] [address] 12/26/2023 10:00 AM EDT Office Visit Neurology [facility] [address] [place] [address] Shayla Sandoval MD [address] [place] [address] 12/31/2023 11:15 AM EDT Office Visit Orthopaedics [facility] [address] [place] [address] Alvaro Pritchard PA-C [address] [place] [address] 03/23/2024 10:30 AM EDT Imaging Radiology [facility] [address] [place] [address] 06/29/2024 2:00 PM EDT Office Visit Gynecology/Obstetrics [facility] [address] [place] [address] Anais Liu CRNP [address] [place] [address] Health Maintenance Due Date Last Done Comments [...] filedocumented as of this encounter Care Teams Surgery Attendant Relationship Specialty Start Date End Date Maribell Salinas DO [address] [place] [address] PCP - General Family Medicine 02/26/23 documented as of this encounter
--- OUTSIDE RECORDS SUMMARY | 2024-03-05 00:38 | External Medical Summary | Summary of Care ---
Author Name Unknown Organization [facility] Address [address] [place] [place] [facility] [place] [address] Phone [phone] Care Team Providers Care Fisheries Diver Name Role Phone Maribell Salinas DO Primary Care Provider [phone] Reason for Visit * Reason Onset Date Comments Medication Refill 12/21/2023 Encounter Details Date Type Department Care Team (Late st Contact Info) Description 12/21/2023 [facility] [address] [place] [address] Shayla Sandoval MD [address] [place] [address] Allergies No known active allergiesdocumented as of this encounter (statuses as of 12/22/2023) Medications Medication Sig Dispensed Refills Start Date [...] 7 STOP 60 Tablet 1 12/15/2023 Active documented as of this encounter (statuses as of 12/22/2023) Active Problems Problem Noted Date Diagnosed Date [...] and proper diet. Consider referral to a administrative aide prior to conception for maternal conditions that [...] as of this encounter (statuses as of 12/22/2023) Immunizations Name Administration Dates Next Due COVID-19 mRNA, LNP-s, No Pre serve, 2-Dose Series ([facility]) 10/28/2021,03/23/2021,01/03/2021 Hepatitis B Vaccine, Recombi nant, Adjuvanted, [...] Telephone Encounter - Cherrie Rodriguez LPN - 12/22/2023 9:46 AM EDT Patient is picking RX up at pharmacy that was sent in last week documented in this encounter Plan of Treatment Upcoming Encounters Date Type Department Care Team (Late st Contact Info) Description 12/22/2023 10:45 AM EDT Imaging Radiology [address] [place] [address] 12/26/2023 10:00 AM EDT Office Visit Neurology [facility] [address] [facility] [place] [address] Shayla Sandoval MD [address] [facility] [place] [address] 12/31/2023 11:15 AM EDT Office Visit Orthopaedics [facility] [address] [place] [address] Alvaro Pritchard PA-C [address] [place] [address] 03/23/2024 10:30 AM EDT Imaging Radiology [facility] [address] [place] [address] 06/29/2024 2:00 PM EDT Office Visit Gynecology/Obstetrics [facility] [address] [place] [address] Anais Liu CRNP [address] [place] [address] Health Maintenance Due Date Last Done Comments Depression Screening 1995 HIV Screening 12/19/1998 COVID-19 Vaccine ( season) 2023 10/28/2021, 03/23/2021, 01/03/2021 Hepatitis B (2 of 2 - CpG 2-dose series) 08/13/2023 07/16/2023 Mammogram 2023 Diabetes Screening 04/14/2026 04/14/2023, 1 , 04/22/2022, [...] filedocumented as of this encounter Care Teams Fisheries Diver Relationship Specialty Start Date End Date Maribell Salinas DO [address] [place] [address] PCP - General Family Medicine 02/26/23 documented as of this encounter
--- OUTSIDE RECORDS SUMMARY | 2024-03-05 00:38 | External Medical Summary ---
Author Name Unknown Address Unknown Organization K01:[facility] [place] [address] [place] [address] Laboratory Report Ordering Provider Test Date Status WILLARD KEITA 02/10/2024 11:45:08 Final Observation Date Value Abnormality Reference (Units ) Status MYCODE SPECIMEN-SST 02/10/2024 11:45:08 Freezing of extracted DNA, whole blood and/or serum. Final Performing Location [facility] [place] - [address] [place] [address]
--- OUTSIDE RECORDS SUMMARY | 2024-03-05 00:38 | External Medical Summary | Summary of Care ---
Author Name Unknown Organization [facility] Address [address] [facility] [place] [address] Phone [phone] Care Team Providers Care Logistic Manager Name Role Phone Maribell Salinas DO Primary Care Provider [phone] Reason for Referral * Evaluate & Treat - Unlimited Visits (Within 10 days (routine)) - Pending Review Specialty Diagnoses / Procedures Referred By Jenifer siegel Referred To Contact Physical Therapy / Physical Medicine And Rehab Diagnoses Patellofemoral arthritis of left knee Alvaro Pritchard PA-C [address] [place] [address] Referral ID Status Reason Start Date Expiration Date Visits Requested Visits Authorized [id number] Pending Review Specialty Services Required 11/19/[phone] Question Answer Referral Priority Within 10 days (routine) Where should this appointment be scheduled? [facility] Comments With underlying pes anserine bursitis Reason for Visit * Reason Comments Follow Up L knee Encounter Details Date Type Department Care Team (Latest Contact Info) Description 11/19/2023 10:15 AM EST Office Visit Orthopaedics [facility] [address] [place] [address] Alvaro Pritchard PA-C [address] [place] [address] Patellofemoral arthritis of left knee* Allergies No known active allergiesdocumented as of this encounter (statuses as of 11/19/2023) Medications Medication Sig Dispensed Refills Start Date [...] as of this encounter (statuses as of 11/19/2023) Active Problems Problem Noted Date Diagnosed Date [...] and proper diet. Consider referral to a surgical tech prior to conception for maternal conditions that [...] as of this encounter (statuses as of 11/19/2023) Immunizations Name Administration Dates Next Due COVID-19 mRNA, LNP-s, No Pre serve, 2-Dose Series ([facility]) 10/28/2021,03/23/2021,01/03/2021 Hepatitis B Vaccine, Recombi nant, Adjuvanted, [...] on file documented as of this encounter Progress Notes * Alvaro Pritchard PA-C - 11/19/2023 10:18 AM EST Established patient with left knee pain previously diagnosed with degenerative changes , specifically advancing chondromalacia of the patellofemoral joint. Presents today with a return of increasing left knee pain. Initially presented to me after completing physical therapy and bracing in the [place]. It is now been several years since that time I also provided the patient with an unsuccessful corticosteroid injection. Reports very little relief at this point. Has been 9 months since that steroid injection and the patient states she has been having pain that increases with certain ADLs and elective activity. Denies any calf pain. Denies any new injury or fall. It has been 3 years since any type of imaging for left knee and I would like to obtain new radiographs complete for the left knee. Review of Systems complete review of systems negative Physical Exam General: alert and oriented x3 female, no acute distress, appears currently stated age, pleasant, well nourished, here with her and her daughter Psych: Mood and affect are normal and without any positive/concerning findings Skin: Left knee does not reveal any erythema, effusion, ecchymosis, abrasion, laceration, skin breakdown otherwise Neurovascular: Left lower extremity is neurovascularly intact with good sensation strength throughout, calf supple nontender, toes were mobile, +5 strength dorsi and plantar flexion of the foot Respiratory: Patient's breathing unlabored HEENT: Head is atraumatic normocephalic, eyes are equal and round and without scleral injection Gait and station: Normal without antalgic findings during ambulation and generalized movements Coordination: Normal and without imbalance Musculoskeletal: Left knee ROM 0-120 with no pain at endpoints of flexion. There is medial joint line tenderness and tenderness over the pes anserinus bursa. Minimal tenderness palpating throughout the patellofemoral joint. Ligamentously stable regarding cruciate and collateral ligaments. Extensor mechanism intact. No obvious cystic change or masses the popliteal fossa. Patellar tendon nontender.Hip and ankle atraumatic X-rays of the left knee reveal well-preserved joint spaces tricompartmental. There is no evidence of loose bodies. There is some subtle sclerotic change along the anteromedial tibial plateau indicative of chronic wear but certainly nothing that is end-stage or advanced. Plain film radiographs do not reveal any type of advanced degeneration such as osteoarthritis. No acute findings such as fracture dislocation or subluxation. Unable to identify any type of obvious cystic changes or masses in thebone. Official radiology report to follow accordingly and we listed in the patient's chart under imaging. Personal interpretation and documentation regarding today's plain film radiographs performed by myself. MRI KNEE LEFT WO CONTRAST-LT 08/18/2021 2:56 pm HISTORY Provided clinical history: "abnormal MRI from the [place], pain" COMPARISON No comparisons TECHNIQUE Multiplanar, multi-sequence MRI of the left knee was performed without IV contrast. FINDINGS Menisci: Normal in contour and signal intensity. No appreciable tear. Cruciate Ligaments: Intact. Collateral Ligaments: Medial collateral ligament is intact. Visualized posterolateral corner complex structures (including the fibular collateral ligament proper, biceps femoris tendon, and popliteustendon) are intact. Extensor Mechanism: Quadriceps and patellar tendons are intact. Medial and lateral extensor retinacula are intact. Muscles, Tendons, and Neurovascular Structures: Regional musculature is normal in bulk and signal intensity. Visualized tendons are intact. Visualized portions of the tibial and common peroneal nerves are grossly normal in size and signal intensity. Popliteal vessels are unremarkable. Bone and Cartilage: Patellofemoral chondromalacia, with full-thickness cartilage loss at the superior aspect of the median patellar ridge. No fracture or bone lesion. Miscellaneous: Small to moderate joint effusion. IMPRESSION IMPRESSION Moderate patellofemoral chondromalacia. Impression: Left knee pain secondary to chondromalacia of the patellofemoral joint, underlying pes anserinus bursitis Plan: Today 's findings were discussed with the patient. They were educated regarding their diagnosis. Multiple treatment options discussed and agreed upon, including formal physical therapy, J brace, cryotherapy, Voltaren gel, behavior modification rest. Clinical reassessment in 6 weeks. Discussedthe importance of follow-up as the patient was lost for upwards of 2 years to follow up previously.The patient has no other questions or concerns. I do not identify any type of clinical findings that would support a new MRI or advanced treatments with injections or surgery. Pleased with today 's care. Call sooner if needed. This chart was completed in part utilizing [employer] Voice Recognition Software. Grammatical errors, random word insertions, prounoun errors, and incomplete sentences are an occasional consequence of this system due to software limitations, ambient noise, and hardware issues. Any formal questions or concerns about the content, text, or information contained within the body of this dictation should be directly addressed to the provider for clarification. documented in this encounter Nursing Notes * Jeannie Spencer ATC - 11/19/2023 10:11 AM EST Patient presents for follow up of L knee pain. Patient notes the pain has been extremely terrible for some time now. documented in this encounter Plan of Treatment Upcoming Encounters Date Type Department Care Team (Late st Contact Info) Description 12/22/2023 10:45 AM EDT Imaging Radiology [facility] [address] [facility] [place] [address] 12/26/2023 10:00 AM EDT Office Visit Neurology [facility] [address] [facility] [place] [address] Shayla Sandoval MD [address] [facility] [place] [address] 12/31/2023 11:15 AM EDT Office Visit Orthopaedics [facility] [address] [facility] [place] [address] Alvaro Pritchard PA-C [address] [place] [address] 03/23/2024 10:30 AM EDT [facility] [place] [address] 06/29/2024 2:00 PM EDT Office Visit Gynecology/Obstetrics [facility] [address] [facility] [place] [address] Anais Liu CRNP [address] [place] [address] Pending Results Name Type Priority Associated Diagnoses Date /Time XR KNEE 4 OR MORE VIEWS Medical Imaging Routine Patellofemoral arthritis of left knee 11/19/2023 10:25 AM EST Scheduled Referrals Name Type Priority Associated Diagnoses Orde r Schedule PHYSICAL THERAPY REFERRAL OP Referral Within 10 days (routine) Patellofemoral arthritis of left knee Ordered: 11/19/2023 Health Maintenance Due Date Last Done Comments [...] as of this encounter Visit Diagnoses Diagnosis Patellofemoral arthritis of left knee- Primary Unspecified arthropathy, lower leg documented in this encounter Care Teams Logistic Manager Relationship Specialty Start Date End Date Maribell Salinas DO [address] [place] [address] PCP - General Family Medicine 02/26/23 documented as of this encounter
--- OUTSIDE RECORDS SUMMARY | 2024-03-05 00:38 | External Medical Summary ---
Author Name Unknown Address Unknown Organization K01:[facility] [place] - [address] [place] [address] Laboratory Report Ordering Provider Test Date Status GABRIELA PALOMINO 12/02/2023 09:43:26 Final Observation Date Value Abnormality Reference (Units ) Status Lamotrigine level 12/02/2023 09:43:26 3.6 2. 5-15.0 (ug/mL) Final Performing Location [facility] - [address] [place] [address]
--- OUTSIDE RECORDS SUMMARY | 2024-03-05 00:38 | External Medical Summary | Summary of Care ---
Author Name Unknown Organization [facility] Address [address] [place] [address] Phone [phone] Care Team Providers Care Discharge Door Operator Name Role Phone Maribell Salinas DO Primary Care Provider [phone] Reason for Visit * Reason Comments Outpatient Testing Encounter Details Date Type Department Care Team (Late st Contact Info) Description 12/02/2023 9:50 AM EST Laboratory Laboratory, [facility] [address] [place] [address] [facility] [address] [place] [address] Partial symptomatic epilepsy with complex partial seizures, not intractable, without status epilepticus (HCC) Allergies No known active allergiesdocumented as of [...] and proper diet. Consider referral to a flat grinder operator prior to conception for maternal conditions that [...] Description 12/22/2023 10:45 AM EDT Imaging Radiology [facility]st [facility] [address] [facility] [place] [address] 12/26/2023 10:00 AM EDT Office Visit Neurology [facility] Verna Maskell [address] [place] [address] Shayla Sandoval MD [address] [place] [address] 12/31/2023 11:15 AM EDT Office Visit Orthopaedics [facility] [address] [place] [address] Alvaro Pritchard PA-C [address] [address] 03/23/2024 10:30 AM EDT Imaging Radiology [facility] [address] [place] [address] 06/29/2024 2:00 PM EDT Office Visit Gynecology/Obstetrics [facility] [address] [place] [address] BackerAnais CRNP [address] [place] [address] Pending Results Name Type Priority Associated Diagnoses Date /Time LAMOTRIGINE LEVEL Lab Routine Partial symptomatic epilepsy with complex partial seizures, not intractable, without status epilepticus (HCC) 12/02/2023 9:43 AM EST Health Maintenance Due Date Last Done Comments [...] seizures, not intractable, without status epilepticus (HCC) documented in this encounter Care Teams Discharge Door Operator Relationship Specialty Start Date End Date Maribell Salinas DO [address] [place] [address] PCP - General Family Medicine 02/26/23 documented as of this encounter
--- OUTSIDE RECORDS SUMMARY | 2024-03-05 00:38 | External Medical Summary | Summary of Care ---
Author Name Unknown Organization [facility] Address [address] [place] [facility] [place] [address] Phone [phone] Care Team Providers Care Turnaround Planner Name Role Phone Maribell Salinas DO Primary Care Provider [phone] Reason for Visit * Reason Comments Return Neuro Encounter Details Date Type Department Care Team (Late st Contact Info) Description 12/26/2023 10:00 AM EDT Office Visit Neurology [facility] [place] [address] [facility] [place] [address] Shayla Sandoval MD [address] [facility] [place] [address] Partial symptomatic epilepsy with complex partial seizures, not intractable, without status epilepticus (HCC)*; Embolic stroke involving right middle cerebral artery (HCC); PFO (patent foramen ovale) Allergies No known active allergiesdocumented as of [...] at bedtime 60 Tablet 5 12/26/2023 Active lamoTRIgine 100 MG Oral Tablet (LaMICtal) Week 5 take 1/2 twice a day, week 6 take 1 in am 1/2 in pm, week 7 take 1 twice a day, week 8take 1 1/2 in am 1 in pm , week 9 and on 1 1/2 twice a day 90 Tablet 5 08/29/2023 4 Discontinued lamoTRIgine 25 MG Oral Tablet (LaMICtal) Take one each morning week 1-2. Take 2 each morning week 3-4 then switch to 100 mg tabs 32 Tablet 0 08/29/2023 4 Discontinued levETIRAcetam 250 MG Oral Tablet (Keppra) Weeks 1-2; 250 mg in am, 500 mg in pm Week 3-4; 250 mg twice a day Week 5-6; 250 mg once a day Week 7 STOP 60 Tablet 1 12/15/2023 4 Discontinued documented as of this encounter (statuses as [...] and proper diet. Consider referral to a javascript programmer prior to conception for maternal conditions that [...] mRNA, LNP-s, No Pre serve, 2-Dose Series (1Rebel) 10/28/2021,03/23/2021,01/03/2021 Hepatitis B Vaccine, Recombi nant, Adjuvanted, [...] on file documented as of this encounter Last Filed Vital Signs Vital Sign Reading Time Taken Comments Blood Pressure 110/66 12/26/2023 10:13 AM EDT Pulse 69 12/26/2023 10:13 AM EDT Temperature 36 C (96.8 F) 12/26/2023 10: 13 AM EDT Respiratory Rate - - Oxygen Saturation 98% 12/26/2023 10: 13 AM EDT Inhaled Oxygen Concentration - - Weight 111.4 kg (245 lb 11.2 oz) 2023 10:13 AM EDT Height - - Body Mass Index 39.66 05/28/2023 2:14 PM EDT documented in this encounter Progress Notes * Shayla Sandoval MD - 12/26/2023 10:48 AM EDT CLINIC NOTES Neurology [facility] [address] [facility] [place] [address] Leona Clark : 1985 NEUROLOGY OUTPATIENT NOTE 12/26/2023 HISTORY: The patient is referred for consultation by Dr. Maribell Salinas, who will be receiving a copy of this note. Patient comes today in follow-up of a new seizure related to a previously unidentified small cortical stroke. She has a PFO and a rope score of 8. It was recommended to the patient that she have a closure and she is considering. I reviewed that information with the patient. She felt somewhat unsteady on Keppra in spite of ER once a day dosing we made a transition to Lamictal and advise the patient to taper Keppra. She did not understand the instructions and she stopped taking Keppra 3 weeks agoand has not yet changed Keppra dosing. she has not had any seizures or new weakness or new numbness. She remains on aspirin and statin Antithrombin 3 and factor 5 Leiden mutation were negative or normal Past Medical History: Diagnosis Date Chronic viral hepatitis B without delta agent and without coma (HCC) Embolic stroke involving right middle cerebral artery (HCC) 02/26/2023 Interatrial cardiac shunt 12/27/2022 Partial symptomatic epilepsy with complex partial seizures, not intractable, without status epilepticus (HCC) 02/26/2023 PFO (patent foramen ovale) 02/26/2023 Patient Active Problem List Diagnosis Code Hiatal hernia K44.9 New onset seizure (HCC) R56.9 Interatrial cardiac shunt Q24.8 Cerebral infarction (HCC) I63.9 Chronic viral hepatitis B without delta agent and without coma (HCC) B18.1 Partial symptomatic epilepsy with complex partial seizures, not intractable, without status epilepticus (HCC) G40.209 PFO (patent foramen ovale) Q21.12 Embolic stroke involving right middle cerebral artery (HCC) I63.411 Chronic hepatitis B (HCC) B18.1 Seizures (HCC) R56.9 Encounter for preconception consultation Z31.69 AMA (advanced maternal age) multigravida 35+ O09.529 Obesity, Class III, BMI 40-49.9 (morbid obesity) (HCC) E66.01 Past Surgical History: Procedure Laterality Date DELIVERY 2014,2018 EGD, FLEXIBLE, DIAGNOSTIC 03/19/2022 + H pylori, hiatal hernia / ESOPHAGOGASTRODUODENOSCOPY (EGD), FLEXIBLE, TRANSORAL, DIAGNOSTIC performed by Tommie Vásquez MD at [facility] Social History Socioeconomic History Marital status: Spouse name: Not on file Number of children: Not on file Years of education: Not on file Highest education level: Not on file Occupational History Occupation: homemaker Tobacco Use Smoking status: Never Smokeless tobacco: Never Vaping Use Vaping Use: Never used Substance and Sexual Activity Alcohol use: Never Drug use: Never Sexual activity: Yes Partners: Male control/protection: I.U.D. Comment: rina 11/2021 Other Topics Concern Not on file Social History Narrative No pets No mold Electric heating Social Determinants of Health Financial Resource Strain: Not on file Food Insecurity: Not on file Transportation Needs: Not on file Physical Activity: Not on file Stress: Not on file Social Connections: Not on file Intimate Partner Violence: Not on file Housing Stability: Not on file Family History Problem Relation Age of Onset No Known Problems Mother No Known Problems Father Autism Son Current Outpatient Medications Medication Sig Dispense Refill Paragard Intrauterine Copper Intrauterine Intrauterine Device Insert 1 Each into uterus once. Aspirin 81 MG Oral Tablet Delayed Release Take 1 Tablet by mouth in the morning. 90 Tablet 1 Diclofenac Sodium 1 % External Gel (Voltaren) Apply topically to affected area 3 times a day as needed for Pain. Apply to affected 100 g 2 levETIRAcetam ER 500 MG Oral Tablet Extended Release 24 Hour (Keppra XR) Take 2 at bedtime 60 Tablet 5 Atorvastatin Calcium 40 MG Oral Tablet (Lipitor) Take one each morning (Patient not taking: Reported on 12/26/2023) 30 Tablet 5 No current facility-administered medications for this visit. Review of patient's allergies indicates: No Known Allergies Results for orders placed or performed in visit on 01/30/23 CBC Result Value Ref Range WBC 4.46 4.00 - 10.80 K/uL RBC 4.37 3.85 - 5.15 M/uL HGB 12.6 12.0 - 15.3 g/dL HCT 40.4 36.0 - 45.2 % MCV 92.4 81.5 - 97.5 fL MCH 28.8 27.0 - 34.0 pg MCHC 31.2 32.0 - 36.0 g/dL RDW 13.3 11.5 - 15.5 % PLT 280 140 - 400 K/uL MPV 10.8 6.6 - 11.1 fL nRBCs 0 <=0 /100 WBCs Results for orders placed or performed in visit on 11/05/23 LIPID PANEL WITH DIRECT LDL IF TG IS HIGH Result Value Ref Range Triglycerides 44 <=174 mg/dL Cholesterol 185 <200 mg/dL HDL Cholesterol 49 (L) >49 mg/dL Non-HDL Cholesterol 136 <=159 mg/dL LDL Cholesterol 127 <=129 mg/dL No results found for: "HEMOGLOBIN A1C" Lab Results Component Value Date/Time [facility] 1.16 05/28/2023 02:39 PM TSH - [facility] 1.66 07/31/2021 01:28 PM No results found for: "JOSEF" No results found for: "WDZM35DWI6" No results found for: "ZGGO52QDZ2" No results found for: "ULYGKKKH51ZT" No results found for: "25OHVITAMIND" Vitamin D Level Interpretation deficient: <20 ng/ml insufficient: 20-30 ng/ml normal: 31-100 ng/ml REVIEW OF SYSTEMS: As above PHYSICAL EXAM: BP 110/66 (BP Site: Left Arm, BP Position: Sitting, BP Cuff Size: Regular) | Pulse 69 | Temp 36 C (96.8 F) (Tympanic) | Wt 111.4 kg (245 lb 11.2 oz) | SpO2 98% | BMI 39.66 kg/m |BSA 2.28 m The patient is awake and alert speech and language are normal and affect is appropriate there are no carotid bruits no heart murmurs heart is regular rate and rhythm pupils are equal no papilledema normal stein motility facial symmetry symmetric strength symmetric reflexes downgoing toes [id number] and [id number]-mp-[id number] are normal IMPRESSION: 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 At this point the patient elects to stay on Keppra and will check a level. She changes her mind wecould re titrate Lamictal. New line continue anti-platelet therapy and statin therapy for stroke prevention. We discussed the recommendations of cardiothoracic surgery for closure of the PFO. Patientis still considering it. We also discussed in the presence of her or partner that if she were to consider in the future that I would recommend that she have a consultation with high-risk OB prior return in 6 months Keppra level today Shayla Sandoval MD 12/26/2023 10:48 AM documented in this encounter Nursing Notes * Marissa Yousif LPN - 12/26/2023 10:12 AM EDT Chief Complaint Patient presents with Return Neuro Pt stated no new concerns today documented in this encounter Plan of Treatment Upcoming Encounters Date Type Department Care Team (Late st Contact Info) Description 12/31/2023 11:15 AM EDT Office Visit Orthopaedics [facility] [address] [place] [address] Alvaro Pritchard PA-C [address] [place] [address] 03/23/2024 10:30 AM EDT Imaging Radiology [facility] [address] [facility] [place] [address] 06/29/2024 2:00 PM EDT Office Visit Gynecology/Obstetrics [facility] [address] [facility] [place] [address] JoeerAnais CRNP [address] [facility] [place] [address] 07/02/2024 10:00 AM EDT Telemedicine Neurology [facility] [address] [place] [address] Shayla Sandoval MD [address] [place] [address] Scheduled Orders Name Type Priority Associated Diagnoses Orde r Schedule LEVETIRACETAM LEVEL Lab Routine Partial symptomatic epilepsy with complex partial seizures, not intractable, without status epilepticus (HCC) Ordered: 12/26/2023 Health Maintenance Due Date Last Done Comments [...] not intractable, without status epilepticus (HCC)- Primary Embolic stroke involving right middle cerebral artery (HCC) Cerebral embolism with cerebral infarction PFO (patent foramen ovale) Ostium secundum type atrial septal defect documented in this encounter Care Teams Turnaround Planner Relationship Specialty Start Date End Date Maribell Salinas DO [address] [place] [address] PCP - General Family Medicine 02/26/23 documented as of this encounter
--- OUTSIDE RECORDS SUMMARY | 2024-03-05 00:38 | External Medical Summary ---
Author Name Unknown Address Unknown Organization K01:[facility] [place] [facility] [place] [address] Laboratory Report Ordering Provider Test Date Status JACQUELYN PATRICK 02/10/2024 11:45:08 Final Observation Date Value Abnormality Reference (Units ) Status Hepatitis B virus DNA panel - Serum or Plasma 02/10/2024 11:45:08 HBV DNA detected and quantified Abnormal HBV DNA not detected Final Test results reported to [facility]. HEPATITIS B VIRUS DNA RESULT NUMERIC - [facility] 02/10/2024 11:45:08 414 <10 (IU/mL) F inal HEPATITIS B VIRUS DNA LOG (IU/ML) - [facility] 02/10/2024 11:45:08 2.62 <1.00 (Log (IU /mL)) Final Calculated HBV DNA concentra tion is within the linear range of the assay (1.00 Log IU/mL and <=9.00 Log IU/mL). Performing Location [facility] [place] [address] [place] [address]
--- OUTSIDE RECORDS SUMMARY | 2024-03-05 00:38 | External Medical Summary | Summary of Care ---
Author Name Unknown Organization [facility] Address [address] [place] [address] Phone [phone] Care Team Providers Care Hims Clerk Name Role Phone Maribell Salinas DO Primary Care Provider [phone] Reason for Visit * Reason Comments Outpatient Testing Encounter Details Date Type Department Care Team (Late st Contact Info) Description 11/11/2023 12:40 PM EST Laboratory Laboratory, [facility] [address] [place] [address] [facility] [address] [place] [address] Chronic viral hepatitis B without delta agent and without coma (HCC) Allergies No known active allergiesdocumented as of this encounter (statuses as of 11/18/2023) Medications Medication Sig Dispensed Refills Start Date [...] as of this encounter (statuses as of 11/18/2023) Active Problems Problem Noted Date Diagnosed Date [...] and proper diet. Consider referral to a learning facilitator prior to conception for maternal conditions that [...] as of this encounter (statuses as of 11/18/2023) Immunizations Name Administration Dates Next Due COVID-19 [...] as of this encounter Progress Notes * Darnell Red CRNP - 11/18/2023 1:52 PM EST No tx indicated. Recheck HBV DNA, Hep Be antigen, LFTs in [employer] Message sent to pt. documented in this encounter Miscellaneous Notes * Addendum Note - Darnell Red CRNP - 11/18/2023 1:55 PM ESTAddended by: DARNELL RED on: 11/18/2023 01:55 PM Modules accepted: Orders documented in this encounter Plan of Treatment Upcoming Encounters Date Type Department Care Team (Late st Contact Info) Description 11/19/2023 10:15 AM EST Office Visit Orthopaedics [facility] [address] [place] [address] Alvaro Pritchard PA-C [address] [place] [address] 12/22/2023 10:45 AM EDT [facility] [address] [place] [address] 12/26/2023 10:00 AM EDT Office Visit Neurology [facility] [address] [place] [address] Shayla Sandoval MD [address] [place] [address] 03/23/2024 10:30 AM EDT Imaging Radiology [facility] [address] [place] [address] 06/29/2024 2:00 PM EDT Office Visit Gynecology/Obstetrics [facility] [address] [place] [address] Backer, ELIZABET Alexandra [address] [place] [address] Scheduled Orders Name Type Priority Associated Diagnoses Orde r Schedule HEPATITIS B VIRUS DNA, QUANTITATIVE, REAL-TIME PCR Lab Routine Chronic viral hepatitis B without delta agent and without coma (HCC) Expected: 02/16/2024, Expires: 11/18/2024 HEPATIC FUNCTION PANEL Lab Routine Chronic viral hepatitis B without delta agent and without coma (HCC) Expected: 02/16/2024, Expires: 11/18/2024 HEPATITIS BE ANTIGEN Lab Routine Chronic viral hepatitis B without delta agent and without coma (HCC) Expected: 02/16/2024, Expires: 11/18/2024 Health Maintenance Due Date Last Done Comments [...] Not on filedocumented as of this encounter Procedures Procedure Name Priority Date/Time Associated Diagnosis Comments HEPATITIS BE ANTIGEN Routine 11/11/2023 11:33 AM EST Chronic viral hepatitis B without delta agent and without coma (HCC) HEPATIC FUNCTION PANEL Routine 11/11/2023 11:33 AM EST Chronic viral hepatitis B without delta agent and without coma (HCC) HEPATITIS B VIRUS DNA, QUANTITATIVE, REAL-TIME PCR Routine 11/11/2023 11:33 AM EST Chronic viral hepatitis B without delta agent and without coma (HCC) documented in this encounter Results * HEPATITIS BE ANTIGEN (11/11/2023 11:33 AM EST) Hepatitiis BE Antigen Nonreactive 11/15/2023 8:48 PM EST [email or web address] Comment: Reference range: Nonreactive For additional information, please refer to https://education.Wisembly.Clicks2Customers/faq/DQN626 (This link is being provided for informational/ educational purposes only.) Test Performed at: [facility] [address] [place] [address] Aamir Yung M.D., Ph.D.,Director of Laboratories Blood Venous blood specimen / Unknown Venipuncture / Unknown 11/11/2023 11:33 AM EST 11/11/2023 11:33 AM EST Darnell MCNEAL LAB BLOOD ORDERABL ES [email or web address] [facility] [address] [place] [address] * (ABNORMAL) HEPATITIS B VIRUS DNA, QUANTITATIVE, REAL-TIME PCR (11/11/2023 11:33 AM EST) [facility] Hepatitis B Virus DNA Interpretation HBV DNA detected and quantified( A) HBV DNA not detected 11/12/2023 1:55 PM EST [facility] Comment:Test results reporte d to [facility]. Hepatitis B Virus DNA IU/mL 7,888 <10 IU/mL 11/12/2023 1:55 PM EST [facility] Hepatitis B Virus DNA Log (IU/mL) 3.90 <1.00 Log (IU/mL) 11/12/2023 1:55 PM EST [facility] Comment:Calculated HBV DNA c oncentration is within the linear range of the assay (1.00 Log IU/mL and <=9.00 Log IU/mL). Blood Venous blood specimen / Unknown Venipuncture / Unknown 11/11/2023 11:33 AM EST 11/11/2023 11:33 AM EST Darnell MCNEAL LAB BLOOD ORDERABL ES [facility] [address] [place] [address] * HEPATIC FUNCTION PANEL (11/11/2023 11:33 AM EST) [facility] Albumin 4.4 3.8 - 5.0 g/dL 11/11/2023 2:55 PM EST LAB[facility]ATORY [place] [facility]-10 AST 20 10 - 35 U/L 11/11/2023 2:55 PM EST LAB[facility] [place] 57[facility]10 Alkaline Phosphatase 65 35 - 130 U/L 11/11/2023 2:55 PM EST [facility] [place] 57[facility]10 ALT 28 10 - 35 U/L 11/11/2023 2:55 PM EST [facility] [place] 57-10 Bilirubin, Total 0.5 <=1.2 mg/dL 11/11/2023 2:55 PM EST [facility] [place] 57-10 Bilirubin, Direct <0.2 0.0 - 0.3 mg/dL 11/11/2023 2:55 PM EST [facility] [place] 57-10 Protein 7.2 6.0 - 8.3 g/dL 11/11/2023 2:55 PM EST LAB[facility] [place] 57-10 Blood Venous blood specimen / Unknown Venipuncture / Unknown 11/11/2023 11:33 AM EST 11/11/2023 11:33 AM EST Darnell MCNEAL LAB BLOOD ORDERABL ES LAB[facility] [place] 57-10 [address] [place] [address] documented in this encounter Visit Diagnoses Diagnosis Chronic viral hepatitis B without delta agent and without coma (HCC) documented in this encounter Care Teams Hims Clerk Relationship Specialty Start Date End Date Maribell Salinas DO [address] [place] [address] PCP - General Family Medicine 02/26/23 documented as of this encounter
--- OUTSIDE RECORDS SUMMARY | 2024-03-05 00:38 | External Medical Summary | Summary of Care ---
Author Name Unknown Organization [facility] Address [address] [place] [facility] [place] [address] Phone [phone] Care Team Providers Care Maintenance Mechanic Name Role Phone Maribell Salinas DO Primary Care Provider [phone] Encounter Details Date Type Department Care Team (Late st Contact Info) Description 01/06/2024 Telephone Neurology [facility] [address] [facility] [address] [place] [address] Shayla Sandoval MD [address] [place] [address] Allergies No known active allergiesdocumented as of this encounter (statuses as of 01/06/2024) Medications Medication Sig Dispensed Refills Start Date [...] as of this encounter (statuses as of 01/06/2024) Active Problems Problem Noted Date Diagnosed Date [...] and proper diet. Consider referral to a mold setter prior to conception for maternal conditions that [...] as of this encounter (statuses as of 01/06/2024) Immunizations Name Administration Dates Next Due COVID-19 mRNA, LNP-s, No Pre serve, 2-Dose Series (Bactest) 10/28/2021,03/23/2021,01/03/2021 Hepatitis B Vaccine, Recombi nant, Adjuvanted, [...] encounter Miscellaneous Notes * Telephone Encounter - Shayla Sandoval MD - 01/06/2024 7:47 AM EDT No Keppra in patient's blood has she really been taking it documented in this encounter Plan of Treatment Upcoming Encounters Date Type Department Care Team (Late st Contact Info) Description 02/02/2024 11:15 AM EDT Office Visit Orthopaedics [facility] [address] [place] [address] Alvaro Pritchard PA-C [address] [place] [address] 03/23/2024 10:30 AM EDT Imaging Radiology [facility] [address] [place] [address] 06/29/2024 2:00 PM EDT Office Visit Gynecology/Obstetrics [facility] [address] [place] [address] Anais Liu CRNP [address] [place] [address] 07/02/2024 10:00 AM EDT Telemedicine Neurology [facility] [place] [address] [facility] [place] [address] Shayla Sandoval MD [address] [facility] [place] [address] Health Maintenance Due Date Last Done Comments [...] filedocumented as of this encounter Care Teams Maintenance Mechanic Relationship Specialty Start Date End Date Maribell Salinas DO [address] [place] [address] PCP - General Family Medicine 02/26/23 documented as of this encounter
--- OUTSIDE RECORDS SUMMARY | 2024-03-05 00:38 | External Medical Summary ---
Author Name Unknown Address Unknown Organization K01:[facility] [place] [address] [place] [address] Laboratory Report Ordering Provider Test Date Status WILLARD KEITA 02/10/2024 11:45:08 Final Observation Date Value Abnormality Reference (Units ) Status MYCODE SPECIMEN-SST 02/10/2024 11:45:08 Freezing of extracted DNA, whole blood and/or serum. Final Performing Location [facility] [place] - [address] [place] [address]
--- OUTSIDE RECORDS SUMMARY | 2024-03-05 00:38 | External Medical Summary | Summary of Care ---
Author Name Unknown Organization [facility] Address [address] [place] [facility] [facility] [place] [address] Phone [phone] Care Team Providers Care Paint Trimmer Pipe Bowls Name Role Phone Maribell Salinas DO Primary Care Provider [phone] Reason for Visit * Reason Onset Date Comments Medication Refill 12/15/2023 Encounter Details Date Type Department Care Team (Late st Contact Info) Description [facility] [address] [place] [address] Georgette Sandoval MD [address] [place] [address] Allergies No known active allergiesdocumented as of [...] and proper diet. Consider referral to a real estate photographer prior to conception for maternal conditions that [...] mRNA, LNP-s, No Pre serve, 2-Dose Series (REAC Fuel) 10/28/2021,03/23/2021,01/03/2021 Hepatitis B Vaccine, Recombi nant, Adjuvanted, [...] Encounter - Georgette Sandoval MD - 12/15/2023 11:36 AM EST Please call her to ask her what her question is about Sandee. She does not need blood work and she should keep her appointment * Telephone Encounter - Georgette Sandoval MD [...] her I would also send instructions via [employer] reference * Telephone Encounter - Cherrie Rodriguez [...] Description 12/22/2023 10:45 AM EDT Imaging Radiology [facility] [address] [place] [address] 12/26/2023 10:00 AM EDT Office Visit Neurology [facility] [address] [place] [address] Georgette Sandoval MD [address] [facility] [address] 12/31/2023 11:15 AM EDT Office Visit Orthopaedics [facility] [address] [place] [address] Alvaro Pritchard PA-C [address] [place] [address] 03/23/2024 10:30 AM EDT Imaging Radiology [facility] [address] [place] [address] 06/29/2024 2:00 PM EDT Office Visit Gynecology/Obstetrics [facility] [address] [place] [address] Anais Liu CRNP [address] [place] [address] Health Maintenance Due Date Last Done Comments [...] filedocumented as of this encounter Care Teams Paint Trimmer Pipe Bowls Relationship Specialty Start Date End Date Maribell Salinas DO [address] [place] [address] PCP - General Family Medicine 02/26/23 documented as of this encounter
--- OUTSIDE RECORDS SUMMARY | 2024-03-05 00:39 | External Medical Summary | Summary of Care ---
Author Name Unknown Organization [facility] Address [address] [place] [address] Phone [phone] Care Team Providers Care Resource Development Manager Name Role Phone Maribell Salinas DO Primary Care Provider [phone] Reason for Visit * Reason Comments Outpatient Testing Encounter Details Date Type Department Care Team (Late st Contact Info) Description 11/11/2023 12:40 PM EST Laboratory Laboratory, [facility] [address] [place] [address] [facility] [address] [place] [address] Chronic viral hepatitis B without delta agent and without coma (HCC) Allergies No known active allergiesdocumented as of this encounter (statuses as of 11/11/2023) Medications Medication Sig Dispensed Refills Start Date [...] as of this encounter (statuses as of 11/11/2023) Active Problems Problem Noted Date Diagnosed Date [...] and proper diet. Consider referral to a boiler/chiller technician prior to conception for maternal conditions that [...] as of this encounter (statuses as of 11/11/2023) Immunizations Name Administration Dates Next Due COVID-19 [...] Description 12/22/2023 10:45 AM EDT Imaging Radiology [facility] [address] [facility] [place] [address] 12/26/2023 10:00 AM EDT Office Visit [facility] [address] [place] [address] Shayla Sandoval MD [address] [place] [address] 03/23/2024 10:30 AM EDT Imaging Radiology [address] [place] [address] 06/29/2024 2:00 PM EDT Office Visit Gynecology/Obstetrics [address] [place] [place] [address] [place], ELIZABET Alexandra [address] [place] [address] Pending Results Name Type Priority Associated Diagnoses Date /Time HEPATIC FUNCTION PANEL Lab Routine Chronic viral hepatitis B without delta agent and without coma (HCC) 11/11/2023 11:33 AM EST HEPATITIS B VIRUS DNA, QUANTITATIVE, REAL-TIME PCR Lab Routine Chronic viral hepatitis B without delta agent and without coma (HCC) 11/11/2023 11:33 AM EST HEPATITIS BE ANTIGEN Lab Routine Chronic viral hepatitis B without delta agent and without coma (HCC) 11/11/2023 11:33 AM EST Health Maintenance Due Date Last [...] (HCC) documented in this encounter Care Teams Resource Development Manager Relationship Specialty Start Date End Date Maribell Salinas DO [address] [place] [address] PCP - General Family Medicine 02/26/23 documented as of this encounter
--- OUTSIDE RECORDS SUMMARY | 2024-03-05 00:39 | External Medical Summary | Summary of Care ---
Author Name Unknown Organization [facility] Address [address] [place] [address] Phone [phone] Care Team Providers Care Softball Winder Name Role Phone Maribell Salinas DO Primary Care Provider [phone] Reason for Visit * Reason Comments Outpatient Testing * Precert (Within 10 days (routine)) - Authorized Specialty Diagnoses / Procedures Referred By Contac t Referred To Contact Laboratory Diagnoses Embolic stroke involving right middle cerebral artery (HCC) Procedures PROTHROMBIN (FACTOR II) GENE MUTATION, PCR Shayla Sandoval MD [address] [facility] [place] [address] Referral ID Status Reason Start Date Expiration Date V isits Requested Visits Authorized [id number] Authorized Precert 09/15/2023 01/07/2024 [id number] Encounter Details Date Type Department Care Team (Late st Contact Info) Description 09/25/2023 12:50 PM EST Laboratory Laboratory, [facility] [address] [facility] [place] [id number] [facility] [address] [facility] [address] Partial symptomatic epilepsy with complex partial seizures, not intractable, without status epilepticus (HCC); Embolic stroke involving right middle cerebral artery (HCC); Cerebral infarction, unspecified mechanism (HCC) Allergies No known active allergiesdocumented as of this encounter (statuses as of 09/26/2023) Medications Medication Sig Dispensed Refills Start Date End Date Status Multivitamin Adult Oral Tablet Take by mouth . 0 Active Paragard Intrauterine Copper Intrauterine Intrauterine Device Insert [...] as of this encounter (statuses as of 09/26/2023) Active Problems Problem Noted Date Diagnosed Date [...] and proper diet. Consider referral to a studio sales associate prior to conception for maternal conditions that [...] as of this encounter (statuses as of 09/26/2023) Immunizations Name Administration Dates Next Due COVID-19 mRNA, LNP-s, No Pre serve, 2-Dose Series ([employer]) 10/28/2021,03/23/2021,01/03/2021 Hepatitis B Vaccine, Recombi nant, Adjuvanted, [...] as of this encounter Miscellaneous Notes * Addendum Note - Pat Larkin TECH - 09/26/2023 12:18 PM EST Addended by: PAT LARKIN on: 09/26/2023 12:18 PM Modules accepted: Orders documented in this encounter Plan of Treatment Upcoming Encounters Date Type Department Care Team (Late st Contact Info) Description 10/02/2023 10:00 AM EST Office Visit Cardiology, [facility] [address] [place] [address] Anita Dennis CRNP [address] [place] [address] 12/22/2023 10:45 AM EDT Imaging [facility] [address] [place] [address] 12/26/2023 10:00 AM EDT Office Visit Neurology [facility] [address] [place] [address] Shayla Sandoval MD [address] [place] [address] 03/23/2024 10:30 AM EDT Imaging Radiology [facility] [place] [address] 06/29/2024 2:00 PM EDT Office Visit Gynecology/Obstetrics [address] [place] [address] Anais Liu CRNP [address] [place] [address] Pending Results Name Type Priority Associated Diagnoses Date /Time PROTHROMBIN (FACTOR II) GENE MUTATION, PCR Lab Routine Embolic stroke involving right middle cerebral artery ([facility]) 09/25/2023 12:54 PM EST FACTOR V (5) LEIDEN MUTATION ANALYSIS, PCR Lab Routine Embolic stroke involving right middle cerebral artery ([facility]) 09/25/2023 12:54 PM EST LUPUS ANTICOAGULANT PROFILE WITH INTERPERTATION BY PATHOLOGIST Lab Routine Cerebral infarction, unspecified mechanism ([facility]) 09/25/2023 12:54 PM EST PROTEIN C ANTIGEN Lab Routine Cerebral infarction, unspecified mechanism (HCC) 09/25/2023 12:54 PM EST CARDIOLIPIN IGG ANTIBODY Lab Routine Cerebral infarction, unspecified mechanism (HCC) 09/25/2023 12:54 PM EST COAGULATION INTERPRETATION BY PATHOLOGIST Lab Routine Cerebral infarction, unspecified mechanism (HCC) 09/25/2023 12:54 PM EST CARDIOLIPIN IGM ANTIBODY Lab Routine Cerebral infarction, unspecified mechanism (HCC) 09/25/2023 12:54 PM EST BETA-2 GLYCOPROTEIN IGG ANTIBODY Lab Routine Cerebral infarction, unspecified mechanism (HCC) 09/25/2023 12:54 PM EST BETA-2 GLYCOPROTEIN IGM ANTIBODY Lab Routine Cerebral infarction, unspecified mechanism (HCC) 09/25/2023 12:54 PM EST PROTEIN C ACTIVITY Lab Routine Embolic stroke involving right middle cerebral artery (HCC) 09/25/2023 12:54 PM EST Health Maintenance Due Date Last Done [...] Procedure Name Priority Date/Time Associated Diagnosis Comments LEVETIRACETAM LEVEL Routine 09/25/2023 1 2:54 PM EST Partial symptomatic epilepsy with complex partial seizures, not intractable, without status epilepticus (HCC) PROTEIN S ACTIVITY WITH ANTIGEN REFLEX Routine 09/25/2023 12:54 PM EST Cerebral infarction, unspecified mechanism (HCC) LUPUS SENSITIVE APTT SCREEN Routine 09/25/2023 12:54 PM EST Cerebral infarction, unspecified mechanism (HCC) ANTITHROMBIN III ACTIVITY Routine 09/25/2023 12:54 PM EST Cerebral infarction, unspecified mechanism (HCC) DILUTE ADELINE VIPER VENOM TIME (DRVVT) SCREEN Routine 09/25/2023 12:54 PM EST Cerebral infarction, unspecified mechanism (HCC) documented in this encounter Results * DILUTE ADELINE VIPER VENOM TIME (DRVVT) SCREEN (09/25/2023 12:54 PM EST) DRVVT Screen Normalized Ratio 0.87 <=1.20 09/26/2023 11:20 AM EST LABORATORY [facility] Comment:Lupus Anticoagulant not detected. Blood Venous blood specimen / Unknown Venipuncture / Unknown 09/25/2023 12:54 PM EST 09/25/2023 12:54 PM EST Sue Ortiz DO LAB BLOOD O RDERABLES LABORATORY [facility] [address] [place] [address] * LUPUS SENSITIVE APTT SCREEN (09/25/2023 12:54 PM EST) Lupus Sensitive aPTT Screen, Normalized Ratio 1.29 0.91 - 1.40 09/26/2023 11:20 AM EST LABORATORY [facility] Comment:Lupus Anticoagulant not detected. Blood Venous blood specimen / Unknown Venipuncture / Unknown 09/25/2023 12:54 PM EST 09/25/2023 12:54 PM EST Sue Ortiz DO LAB BLOOD O RDERABLES Performing Organization Address [facility]/ZIP Co de Phone Number LABORATORY [facility] [address] [place] [address] * ANTITHROMBIN III ACTIVITY (09/25/2023 12:54 PM EST) Antithrombin III Activity 105 80 - 120 % 09/25/2023 5:39 PM EST LABORATORY C Blood Venous blood specimen / Unknown Venipuncture / Unknown 09/25/2023 12:54 PM EST 09/25/2023 12:54 PM EST Sue Ortiz DO LAB BLOOD O RDERABLES Performing Organization Address [facility] Co de Phone Number LABORATORY [facility] [address] [place] [address] * PROTEIN S ACTIVITY WITH ANTIGEN REFLEX (09/25/2023 12:54 PM EST) Pathologist [facility] Protein S Activity 80 65 - 140 % 09/26/2023 11:20 AM EST LABORATORY C Blood Venous blood specimen / Unknown Venipuncture / Unknown 09/25/2023 12:54 PM EST 09/25/2023 12:54 PM EST Sue Ortiz DO LAB BLOOD O RDERABLES Performing Organization Address [facility] Co de Phone Number LABORATORY [facility] [address] [place] [address] * LEVETIRACETAM LEVEL (09/25/2023 12:54 PM EST) Levetiracetam 7 3 - 63 ug/mL 09/26/2023 8:32 AM EST LABORATORY C Blood Venous blood specimen / Unknown Venipuncture / Unknown 09/25/2023 12:54 PM EST 09/25/2023 12:54 PM EST Shayla Sandoval MD LAB BLOOD ORDERAB LES LABORATORY [facility] [address] [facility] [place] [address] documented in this encounter Visit Diagnoses Diagnosis Partial symptomatic epilepsy with complex partial seizures, not intractable, without status epilepticus (HCC) Embolic stroke involving right middle cerebral artery (HCC) Cerebral embolism with cerebral infarction Cerebral infarction, unspecified mechanism (HCC) documented in this encounter Care Teams Softball Winder Relationship Specialty Start Date End Date Maribell Salinas DO [address] [facility] [place] [address] PCP - General Family Medicine 02/26/23 documented as of this encounter
--- OUTSIDE RECORDS SUMMARY | 2024-03-05 00:39 | External Medical Summary ---
Author Name Unknown Address Unknown Organization [id number]:LABORATORY [facility] [facility] - [address] [place] [address] Laboratory Report Ordering Provider Test Date Status DOLLY GRAHAM 09/25/2023 12:54:15 Final Observation Date Value Abnormality Reference (Units ) Status Protein S, Functional 09/25/2023 12:54:15 80 65-140 (%) Final Performing Location LABORATORY [facility] - [address] [address]
--- OUTSIDE RECORDS SUMMARY | 2024-03-05 00:39 | External Medical Summary | Summary of Care ---
Author Name Unknown Organization [facility] Address [address] [place] [address] Phone [phone] Care Team Providers Care Quality Assurance Qa Lab Analyst Name Role Phone Maribell Salinas DO Primary Care Provider [phone] Reason for Referral * Evaluate & Treat - Unlimited Visits (Within 10 days (routine)) - Pending Review Specialty Diagnoses / Procedures Referred By Jenifer siegel Referred To Contact Cardiovascular Medicine Diagnoses Cerebral infarction, unspecified mechanism (HCC) PFO (patent foramen ovale) Anita Dennis CRNP [address] [place] [address] Referral ID Status Reason Start Date Expiration Date Visits Requested Visits Authorized [id number] Pending Review Specialty Services Required 3 [phone] Question Answer Referral Priority Within 10 days (routine) Where should this appointment be scheduled? [facility] Comments Hx of CVA, small PFO. RoPE score of 8. Considering -- wants to discuss need for possible PFO closure prior to becoming . Reason for Visit * Reason Comments Follow Up * Evaluate & Treat - Unlimited Visits (Within 10 days (routine)) - Pending Review Specialty Diagnoses / Procedures Referred By Jenifer siegel Referred To Contact Cardiovascular Medicine / Cardiology Diagnoses Cerebral infarction, unspecified mechanism (HCC) PFO with atrial septal aneurysm Sue Ortiz DO [address] [place] [address] Referral ID Status Reason Start Date Expiration Date Visits Requested Visits Authorized [id number] Pending Review Specialty Services Required 09/16/[phone] Encounter Details Date Type Department Care Team (Late st Contact Info) Description 10/02/2023 10:00 AM EST Office Visit Cardiology, [facility] [address] [place] [address] Anita Dennis CRNP [address] [place] [address] Cerebral infarction, unspecified mechanism (HCC)*; PFO (patent foramen ovale) Allergies No known active allergiesdocumented as of this encounter (statuses as of 10/02/2023) Medications Medication Sig Dispensed Refills Start Date [...] mg tabs 32 Tablet 0 08/29/2023 Active Multivitamin Adult Oral Tablet Take by mouth . 0 10/02/2023 Discontinued (Patient preference/d iscontinuati on) documented as of this encounter (statuses as of 10/02/2023) Active Problems Problem Noted Date Diagnosed Date [...] and proper diet. Consider referral to a shank rander prior to conception for maternal conditions that [...] as of this encounter (statuses as of 10/02/2023) Immunizations Name Administration Dates Next Due COVID-19 mRNA, LNP-s, No Pre serve, 2-Dose Series ([employer]) 10/28/2021,03/23/2021,01/03/2021 Hepatitis B Vaccine, Recombi nant, Adjuvanted, 20 mcg/mL (Heplisav-B) 07/16/2023 MMR-NAHED - Measles/Mumps/Rube lla/Varicella Vaccine 07/14/2023 Seasonal Influenza, Quadriva lent, No Preserve, IM 07/12/2023 TDAP (age 10 and older)(Boostrix) 07/14/2023 documented as of this encounter Social History Tobacco Use Types Packs/Day Years Used Date Smoking Tobacco: Never Smokeless Tobacco: Never Tobacco Cessation:Counseling Given: Not Answered Alcohol Use Standard Drinks/Week Comments Never 0 [...] Sign Reading Time Taken Comments Blood Pressure 114/66 10/02/2023 9:58 AM EST Pulse 76 10/02/2023 9:58 AM EST Temperature - - Respiratory Rate 12 10/02/2023 9:58 AM EST Oxygen Saturation - - Inhaled Oxygen Concentration - - Weight 113.6 kg (250 lb 6.4 oz) 10/02/2023 9:58 AM EST Height - - Body Mass Index 40.42 05/28/2023 2:14 PM EDT documented in this encounter Progress Notes * Anita Dennis CRNP - 10/02/2023 10:00 AM EST Images from the original note were not included. Cardiology Outpatient Visit 10/02/2023 Primary Catalyst Operator Chief: Dr. 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 Was initially evaluated by Dr. Villegas approximately 9 months ago. Was admitted to [facility] 12/12/2022 due to new onset seizure. Brain MRI demonstrating areas of old infarction. A 2D transthoracic echocardiogram was performed demonstrating a small interatrial shunt. Per neurology notes, MRI findings "look very old to me and I suspect she had something in childhood. She underwent a BARBARA January [address] Villegas. Noting small [id number]-oo-qppk shunt with an aneurysmalatrial septum. Zio monitor without evidence of AFib. Patient is prescribed low-dose aspirin. Following with Neurology. Last evaluated in August of this year-- no known reoccurrence of seizures. No med changes were made. Coag studies were ordered and completed and are unremarkable. She is currently meeting with MFM at [facility] for preconception planning. Cardiology consulted for evaluation of PFO and questioning if closure is indicated. Today the patient presents with her . Main concern today is regarding risk with PFO. From a cardiac standpoint she is feeling well. No exertional chest pain or unusual shortness of breath. No palpitations lightheadedness or dizziness. No orthopnea or PND. No lower extremity edema. D enies any neurologic change recently. No known reoccurrence of seizures or CVA. No fever, chills, cough, hematochezia, melena, or hemoptysis. Patient is compliant with all medications, and offers no side effects. Current Outpatient Medications Medication Sig Dispense Refill Paragard Intrauterine Copper Intrauterine Intrauterine Device Insert 1 Each into uterus once. Aspirin 81 MG Oral Tablet Delayed Release Take 1 Tablet by mouth in the morning. 90 Tablet 1 levETIRAcetam ER 500 MG Oral Tablet Extended Release 24 Hour (Keppra XR) Take 2 at bedtime 60 Tablet 5 Atorvastatin Calcium 40 MG Oral Tablet (Lipitor) Take one each morning 30 Tablet 5 lamoTRIgine 100 MG Oral Tablet (LaMICtal) Week 5 take 1/2 twice a day, week 6 take 1 in am 1/2 in pm, week 7 take 1 twice a day, week 8take 1 1/2 in am 1 in pm , week 9 and on 1 1/2 twice a day 90 Tablet 5 lamoTRIgine 25 MG Oral Tablet (LaMICtal) Take one each morning week 1-2. Take 2 each morning week 3-4 then switch to 100 mg tabs 32 Tablet 0 No current facility-administered medications for this visit. Past Medical History: Diagnosis Date Chronic viral hepatitis B without delta agent and without coma (HCC) Embolic stroke involving right middle cerebral artery (HCC) 02/26/2023 Interatrial cardiac shunt 12/27/2022 Partial symptomatic epilepsy with complex partial seizures, not intractable, without status epilepticus (HCC) 02/26/2023 PFO (patent foramen ovale) 02/26/2023 Past Surgical History: Procedure Laterality Date DELIVERY 2014,2018 EGD, FLEXIBLE, DIAGNOSTIC 03/19/2022 + H pylori, hiatal hernia / ESOPHAGOGASTRODUODENOSCOPY (EGD), FLEXIBLE, TRANSORAL, DIAGNOSTIC performed by Tommie Vásquez MD at ENDOSCOPY [facility] Social History Tobacco Use Smoking status: Never Smokeless tobacco: Never Vaping Use Vaping Use: Never used Substance Use Topics Alcohol use: Never Drug use: Never Review of patient's allergies indicates: No Known Allergies Review of Systems: See HPI for pertinent positives. All others negative, other than those noted in HPI. Physical Exam BP 114/66 (BP Site: Left Arm, BP Position: Sitting, BP Cuff Size: Large) | Pulse 76 | Resp 12 | Wt 113.6 kg (250 lb 6.4 oz) | BMI 40.42 kg/m | BSA 2.3 m General: No acute distress. A+Ox3. HEENT: Normocephalic. Atraumatic. Conjunctiva and sclera clear. NECK: No carotid bruits. No JVD. Carotid upstrokes are brisk. Heart: RRR. S1 and S2 noted without murmur, rubs, gallops. PMI non displaced. Lungs: Clear to auscultation. No wheezes, rhonchi, rales. Abdomen: Normal bowel sounds. Soft. Nontender. No masses or organomegaly. No abdominal bruits. Extremities: No edema. No clubbing or cyanosis. Pulses: radial=2/4, posterior tibial=2/4, dorsalis pedis = 2/4. NEURO: No focal deficits. PSYCH: Normal. Lab data/imaging study review: BARBARA at [facility] with Dr. Villegas 2D echo [facility] report 12/12/2022: Mild concentric left ventricular hypertrophy. Left ventricular ejection fraction 65 hyphen 70%. Normal biatrial size. No significant valvular pathology. Injection of contrast documented at interatrial shunt. Atrial septal aneurysm noted, with small, hemodynamically insignificant shunt. Consider aspirin, closure not currently indicated. Brain MRI report December 12, 2022: Normal no evidence of acute intracranial pathology. Remote ischemic injuries of the right parietal, occipital and temporal lobes with encephalomalacia and gliosis. CTA head and neck report 12/12/2022: 1. No occlusion, hemodynamically significant stenosis, or dissection in the major cervical arteries. 2. No occlusion, hemodynamically significant stenosis, aneurysm, dissection, or arteriovenous malformation in the major intracranial arteries. Impression/Plan: 1. Cerebral infarction, unspecified mechanism (HCC) 2. 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 She would be at a higher risk for recurrent stroke in the setting of . Will refer to the valve clinic to discuss potential need for PFO closure. The patient agrees to the above plan and will call with additional questions or concerns. ER with all emergencies advised. Follow-up: Return in about 8 months (around 06/02/2024). | Check-out note: Valve clinic with SHAHIDA Schulte. Schedule her on 11/05/2023 at 1030am -- ok per Anita Then 6-8 months with general cardiology (TK or AE) I spent a total of 40 minutes on the date of service in preparation, delivery, and documentation ofthe care provided to Leona Clark excluding any time spent in the performance of separately billed services. ELIZABET Valadez, Department of Cardiology This chart was completed in part utilizing [employer] Speech Voice Recognition Software. Grammatical errors, random [...] documented in this encounter Nursing Notes * Isaura Khan CMA - 10/02/2023 9:56 AM EST Examination Room: 4 Name: Leona Clark Date of : (1985). Reason for Visit: f/u Interim Hospitalization(s): none Problems/Concerns: Discuss possible and cardiac risk. Chest Pain/SOB: denies [facility] Discussed: Not applicable [facility] is a way you can talk to your provider online through e-mail. Would you like to sign up? I can activate it for you? ALREADY ACTIVE Patient was instructed to not get up on the exam table until directed and assisted by their provider; patient is to remain seated in the chair/ wheelchair/ exam table for fall prevention and safety reasons. Patient is aware to have assistance to step down off exam table with personnel. Patient voiced full comprehension of instructions. documented in this encounter Plan of Treatment Upcoming Encounters Date Type Department Care Team (Late st Contact Info) Description 11/05/2023 10:30 AM EST Office Visit Cardiology [facility] [address] [place] [address] Anthony Penny MD [address] [place] [address] 12/22/2023 10:45 AM EDT Imaging Radiology [facility]st [facility] [address] [facility] [place] [address] 12/26/2023 10:00 AM EDT Office Visit [facility] [address] [facility] [place] [address] Shayla Sandoval MD [address] [facility] [place] [address] 03/23/2024 10:30 AM EDT Imaging Radiology [facility] [address] [place] [address] 06/29/2024 2:00 PM EDT Office Visit Gynecology/Obstetrics [facility] [address] [place] [address] JoeerAnais CRNP [address] [place] [address] Scheduled Referrals Name Type Priority Associated Diagnoses Orde r Schedule VALVE CLINIC REFERRAL OP Referral Within 10 days (routine) Cerebral infarction, unspecified mechanism (HCC) PFO (patent foramen ovale) Ordered: 10/02/2023 Health Maintenance Due Date Last Done Comments [...] as of this encounter Visit Diagnoses Diagnosis Cerebral infarction, unspecified mechanism (HCC)- Primary PFO (patent foramen ovale) Ostium secundum type atrial septal defect documented in this encounter Care Teams Quality Assurance Qa Lab Analyst Relationship Specialty Start Date End Date Maribell Salinas DO [address] [place] [address] PCP - General Family Medicine 02/26/23 documented as of this encounter
--- OUTSIDE RECORDS SUMMARY | 2024-03-05 00:39 | External Medical Summary ---
Author Name Unknown Address Unknown Organization : Laboratory Report Ordering Provider Test Date Status DARNELLJACQUELYN 11/11/2023 11:33:29 Final Observation Date Value Abnormality Reference (Units ) Status Hep B E Ag 11/11/2023 11:33:29 Nonreactive Final Reference range: Nonreactive
For additional information, please refer to
https://education.[employer]/faq/[email or web address]
(This link is being provided for informational/
educational purposes only.)

Test Performed at:
[facility]
[address]
[place] [address]
Aamir Yung M.D., Ph.D.,Director of Laboratories Performing Location
--- OUTSIDE RECORDS SUMMARY | 2024-03-05 00:39 | External Medical Summary ---
Author Name Unknown Address Unknown Organization [id number]:[facility]AT[facility] [place] [address] [place] [address] Laboratory Report Ordering Provider Test Date Status DOLLY GRAHAM 09/25/2023 12:54:15 Final Anticardiolipin / beta-2 gly coprotein antibodies must be detected on 2 or more occasions at least 12 weeks apart to fulfill the laboratory diagnostic criteria for Antiphospholipid Syndrome. Observation Date Value Abnormality Reference (Units ) Status Beta 2 glycoprotein 1 IgG Ab [Presence] in Serum 09/25/2023 12:54:15 Negative Negative Final Beta 2 glycoprotein 1 IgG Ab [Units/volume] in Serum or Plasma by Immunoassay 09/25/2023 12:54:15 <0.8 <7 (U/mL) Final Performing Location [facility] [place] [address] [place] [address]
--- OUTSIDE RECORDS SUMMARY | 2024-03-05 00:39 | External Medical Summary | Summary of Care ---
Author Name Unknown Organization [facility] Address [address] [place] [address] Phone [phone] Care Team Providers Care Radiocommunications Technician Name Role Phone Maribell Salinas DO Primary Care Provider [phone] Reason for Visit * Reason Comments Outpatient Testing * Precert (Within 10 days (routine)) - Authorized Specialty Diagnoses / Procedures Referred By Contac t Referred To Contact Laboratory Diagnoses Embolic stroke involving right middle cerebral artery (HCC) Procedures PROTHROMBIN (FACTOR II) GENE MUTATION, PCR Shayla Sandoval MD [address] [facility] [place] [address] Referral ID Status Reason Start Date Expiration Date V isits Requested Visits Authorized [id number] Authorized Precert 09/15/2023 01/07/[phone] Encounter Details Date Type Department Care Team (Late st Contact Info) Description 09/25/2023 12:50 PM EST Laboratory Laboratory, [facility] [address] [facility] [place] [id number] [facility] [address] [facility] [address] Partial symptomatic epilepsy with complex partial seizures, not intractable, without status epilepticus (HCC); Embolic stroke involving right middle cerebral artery (HCC); Cerebral infarction, unspecified mechanism (HCC) Allergies No known active allergiesdocumented as of this encounter (statuses as of 09/25/2023) Medications Medication Sig Dispensed Refills Start Date [...] as of this encounter (statuses as of 09/25/2023) Active Problems Problem Noted Date Diagnosed Date [...] and proper diet. Consider referral to a poultry scientist prior to conception for maternal conditions that [...] as of this encounter (statuses as of 09/25/2023) Immunizations Name Administration Dates Next Due COVID-19 mRNA, LNP-s, No Pre serve, 2-Dose Series ([employer]) 10/28/2021,03/23/2021,01/03/2021 Hepatitis B Vaccine, Recombi nant, [...] 10/02/2023 10:00 AM EST Office Visit Cardiology, [facility] [address] [place] [address] Anita Dennis CRNP [address] [place] [address] 12/22/2023 10:45 AM EDT Imaging Radiology [facility] [place] [address] [place] [address] 12/26/2023 10:00 AM EDT Office Visit Neurology [facility] [address] [place] [address] Shayla Sandoval MD [address] [place] [address] 03/23/2024 10:30 AM EDT Imaging Radiology [facility] [address] [place] [address] 06/29/2024 2:00 PM EDT Office Visit Gynecology/Obstetrics [facility] [address] [place] [address] Anais Liu CRNP [address] [place] [address] Pending Results Name Type Priority Associated Diagnoses Date /Time LEVETIRACETAM LEVEL Lab Routine Partial symptomatic epilepsy with complex partial seizures, not intractable, without status epilepticus ([facility]) 09/25/2023 12:54 PM EST PROTHROMBIN (FACTOR II) GENE MUTATION, PCR Lab Routine Embolic stroke involving right middle cerebral artery ([facility]) 09/25/2023 12:54 PM EST FACTOR V (5) LEIDEN MUTATION ANALYSIS, PCR Lab Routine Embolic stroke involving right middle cerebral artery ([facility]) 09/25/2023 12:54 PM EST LUPUS ANTICOAGULANT PROFILE WITH INTERPERTATION BY PATHOLOGIST Lab Routine Cerebral infarction, unspecified mechanism ([facility]) 09/25/2023 12:54 PM EST PROTEIN C ANTIGEN Lab Routine Cerebral infarction, unspecified mechanism ([facility]) 09/25/2023 12:54 PM EST PROTEIN S ACTIVITY WITH ANTIGEN REFLEX Lab Routine Cerebral infarction, unspecified mechanism ([facility]) 09/25/2023 12:54 PM EST LUPUS SENSITIVE APTT SCREEN Lab Routine Cerebral infarction, unspecified mechanism (HCC) [...] unspecified mechanism (HCC) 09/25/2023 12:54 PM EST DILUTE ADELINE VIPER VENOM TIME (DRVVT) SCREEN Lab Routine Cerebral infarction, unspecified mechanism (HCC) 09/25/2023 12:54 PM EST Health Maintenance [...] Procedure Name Priority Date/Time Associated Diagnosis Comments ANTITHROMBIN III ACTIVITY Routine 09/25/2023 12:54 PM EST Cerebral infarction, unspecified mechanism (HCC) documented in this encounter Results * ANTITHROMBIN III ACTIVITY (09/25/2023 12:54 PM EST) Antithrombin III Activity 105 80 - 120 % 09/25/2023 5:39 PM EST LAB[facility]ATORY [facility] Blood Venous blood specimen / Unknown Venipuncture / Unknown 09/25/2023 12:54 PM EST 09/25/2023 12:54 PM EST Sue Ortiz DO LAB BLOOD O RDERABLES LAB[facility]ORY [facility] [address] [facility] [place] [address] documented in this encounter Visit Diagnoses Diagnosis Partial symptomatic epilepsy with complex partial seizures, not intractable, without status epilepticus (HCC) Embolic stroke involving right middle cerebral artery (HCC) Cerebral embolism with cerebral infarction Cerebral infarction, unspecified mechanism (HCC) documented in this encounter Care Teams Radiocommunications Technician Relationship Specialty Start Date End Date Maribell Salinas DO [address] [place] [address] PCP - General Family Medicine 02/26/23 documented as of this encounter
--- OUTSIDE RECORDS SUMMARY | 2024-03-05 00:39 | External Medical Summary ---
Author Name Unknown Address Unknown Organization [id number]:[facility] [place] [address] [place] [address] Laboratory Report Ordering Provider Test Date Status LENNIE GONAZLEZ 11/05/2023 11:31:00 Final Observation Date Value Abnormality Reference (Units ) Status Albumin 11/05/2023 11:31:00 4.7 3.8-5.0 (g/dL) Final AST (Aspartate aminotransferase) 11/05/2023 11:31:00 20 10-35 (U/L) Final Alk Phos 11/05/2023 11:31:00 69 35-130 (U/L) Final ALT (Alanine aminotransferase) 11/05/2023 11:31:00 32 10-35 (U/L) Final Bilirubin, Total 11/05/2023 11:31:00 0.7 <=1.2 (mg/dL) Final Bilirubin, Direct 11/05/2023 11:31:00 <0.2 0.0-0.3 (mg/dL) Final Protein 11/05/2023 11:31:00 7.8 6.0-8.3 (g/dL) Final Performing Location [facility] - [address] [place] [address]
--- OUTSIDE RECORDS SUMMARY | 2024-03-05 00:39 | External Medical Summary ---
Author Name Unknown Address Unknown Organization K01:LABORATORY [facility] - [address] [place] [address] Laboratory Report Ordering Provider Test Date Status GABRIELA PALOMINO 09/25/2023 12:54:15 Final Observation Date Value Abnormality Reference (Units ) Status Levetiracetam level 09/25/2023 12:54:15 7 3-63 (ug/mL) Final Performing Location LABORATORY C - [address] [place] [address]
--- OUTSIDE RECORDS SUMMARY | 2024-03-05 00:39 | External Medical Summary ---
Author Name Unknown Address Unknown Organization K01:LABORATORY [facility] - [address] [address] Laboratory Report Ordering Provider Test Date Status DOLLY GRAHAM 09/25/2023 12:54:15 Final Observation Date Value Abnormality Reference (Units) Status LUPUS INTERPRETATION BY PATHOLOGIST 09/25/2023 12:54:15 Factor V Leiden and Prothrombin gene mutations are not detected. Final LUPUS INTERPRETATION BY PATHOLOGIST 09/25/2023 12:54:15 Negative for Lupus Anticoagulant (LA) and antiphospholipid antibodies. Final LUPUS INTERPRETATION BY PATHOLOGIST 09/25/2023 12:54:15 Other tested factor antigen and activity levels are within normal limits. Final LUPUS INTERPRETATION BY PATHOLOGIST 09/25/2023 12:54:15 Final LUPUS INTERPRETATION BY PATHOLOGIST 09/25/2023 12:54:15 Clinical: 37 year-old female with history of patent foramen ovale and stroke per note in electronic medical record (radiologic studies do not appear to have been done at [facility]). No history of unprovoked thrombosis or recurrent loss found on review of electronic medical record. Final HEMATOLOGY PATHOLOGIST 09/25/2023 12:54:15 Dr. Asmita Richards MD Final Performing Location LAB[facility]ORY [facility] - [facility] [address] [facility] [address] [place] [address]
--- OUTSIDE RECORDS SUMMARY | 2024-03-05 00:39 | External Medical Summary ---
Author Name Unknown Address Unknown Organization K01:LABORATORY [facility] - [address] [place] [address] Laboratory Report Ordering Provider Test Date Status JACQUELYN PATRICK 11/11/2023 11:33:29 Final Observation Date Value Abnormality Reference (Units ) Status Hepatitis B virus DNA panel - Serum or Plasma 11/11/2023 11:33:29 HBV DNA detected and quantified Abnormal HBV DNA not detected Final Test results reported to [facility]. HEPATITIS B VIRUS DNA RESULT NUMERIC - [facility] 11/11/2023 11:33:29 7888 <10 (IU/mL) F inal HEPATITIS B VIRUS DNA LOG (IU/ML) - [facility] 11/11/2023 11:33:29 3.90 <1.00 (Log (IU /mL)) Final Calculated HBV DNA concentra tion is within the linear range of the assay (1.00 Log IU/mL and <=9.00 Log IU/mL). Performing Location LABORATORY [facility] - [address] [place] [address]
--- OUTSIDE RECORDS SUMMARY | 2024-03-05 00:39 | External Medical Summary ---
Author Name Unknown Address Unknown Organization K01:[facility] [place] [address] [place] [address] Laboratory Report Ordering Provider Test Date Status DOLLY GRAHAM 09/25/2023 12:54:15 Final Observation Date Value Abnormality Reference (Units ) Status Antithrombin III 09/25/2023 12:54:15 105 80- 120 (%) Final Performing Location [facility] [place] [address] [place] [address]
--- OUTSIDE RECORDS SUMMARY | 2024-03-05 00:39 | External Medical Summary | Summary of Care ---
Author Name Unknown Organization [facility] Address [address] [place] [address] Phone [phone] Care Team Providers Care Diamond Die Maker Name Role Phone Maribell Katz DO Primary Care Provider [phone] Reason for Visit * Reason Comments NEW PATIENT PFO with hx of CVA Encounter Details Date Type Department Care Team (Late st Contact Info) Description 11/05/2023 10:30 AM EST Office Visit Cardiology, [facility] [address] [place] [address] Anthony Penny MD [address] [place] [address] Cerebral infarction, unspecified mechanism (HCC)*; PFO (patent foramen ovale) Allergies No known active allergiesdocumented as of this encounter (statuses as of 11/05/2023) Medications Medication Sig Dispensed Refills Start Date [...] as of this encounter (statuses as of 11/05/2023) Active Problems Problem Noted Date Diagnosed Date [...] and proper diet. Consider referral to a tobacco sample puller prior to conception for maternal conditions that [...] as of this encounter (statuses as of 11/05/2023) Immunizations Name Administration Dates Next Due COVID-19 mRNA, LNP-s, No Pre serve, 2-Dose Series (Safe N Clear) 10/28/2021,03/23/2021,01/03/2021 Hepatitis B Vaccine, Recombi nant, Adjuvanted, [...] Sign Reading Time Taken Comments Blood Pressure 114/64 11/05/2023 10:44 AM EST Pulse 76 11/05/2023 10:44 AM EST Temperature - - Respiratory Rate 16 11/05/2023 10:44 AM EST Oxygen Saturation - - Inhaled Oxygen Concentration - - Weight 111.6 kg (246 lb) 11/05/2023 10:44 AM EST Height - - Body Mass Index 39.71 05/28/2023 2:14 PM EDT documented in this encounter Progress Notes * Anthony Penny MD - 11/05/2023 10:47 AM EST I have reviewed the advanced practitioner's documentation, and I agree with, and take responsibility for the plan of care. 37 year old female with old infarct discovered in the context of seizures. No afib on zio. Coag studies negative. BARBARA at [facility] showed a PFO with a small shunt. I reviewed this study. RoPE Score is 8 PFO closure is indicated. They are contemplative. Will think about it and get back to me if they want to proceed. Anthony Penny MD MPH Interventional Cardiology Pager: [phone] 11/05/23 11:54 AM * Anita Dennis CRNP - 11/05/2023 10:30 AM EST Images from the original note were not included. Valve Clinic Cardiology Outpatient Clinic Note 11/05/2023 Patient disposition: NEW PATIENT Primary Framing And Hanging: Dr. 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 Was referred by the undersigned due to history of CVA with known history of PFO confirmed on BARBARA in the spring. Was admitted to [facility] 12/12/2022 due to new onset seizure. Brain MRI demonstrating areas of old infarction. A 2D transthoracic echocardiogram was performed demonstrating a small interatrial shunt. Per neurology notes, MRI findings "look very old to me and I suspect she had something in childhood. She underwent a BARBARA January [address] Villegas. Noting small suxdu-mi-ptjw shunt with an aneurysmalatrial septum. Zio monitor without evidence of AFib. Patient is prescribed low-dose aspirin. Following with Neurology. Last evaluated in August of this year-- no known reoccurrence of seizures. No med changes were made. Coag studies were ordered and completed and are unremarkable. She is currently meeting with MFM at [facility] for preconception planning. Cardiology consulted for evaluation of PFO and questioning if closure is indicated. Today the patient presents with her per her usual routine. Main concern today is regarding risk with PFO. From a cardiac standpoint she is feeling well. No exertional chest pain or unusual shortness of breath. No palpitations lightheadedness or dizziness. No orthopnea or PND. No lower extremity edema. Denies any neurologic change recently. No known reoccurrence of seizures or CVA. No fever, chills, cough, hematochezia, melena, or hemoptysis. Patient is compliant with all medications, and offers no side effects. Denies tobacco and alcohol use. Follows with a dentist routinely. Has all of her teeth. Denies bleeding issues. Denies any knownanesthesia issues. Current Outpatient Medications Medication Sig Dispense Refill [...] one each morning 30 Tablet 5 lamoTRIgine 25 MG Oral Tablet (LaMICtal) Take one each morning week 1-2. Take 2 each morning week 3-4 then switch to 100 mg tabs 32 Tablet 0 lamoTRIgine 100 MG Oral Tablet (LaMICtal) Week 5 take 1/2 twice a day, week 6 take 1 in am 1/2 in pm, week 7 take 1 twice a day, week 8take 1 1/2 in am 1 in pm , week 9 and on 1 1/2 twice a day 90 Tablet 5 No current facility-administered medications for [...] Past Surgical History: Procedure Laterality Date DELIVERY EGD, FLEXIBLE, DIAGNOSTIC 03/19/2022 + H pylori, hiatal hernia / ESOPHAGOGASTRODUODENOSCOPY (EGD), FLEXIBLE, TRANSORAL, DIAGNOSTIC performed by Tommie Vásquez MD at [facility] Social History Tobacco Use Smoking status: Never Smokeless tobacco: Never Vaping Use Vaping Use: Never used Substance Use Topics Alcohol use: Never Drug use: Never Review of patient's allergies indicates: No Known Allergies Review of Systems: See HPI for pertinent positives. All others negative, other than those noted in HPI. Physical Exam BP 114/64 | Pulse 76 | Resp 16 | Wt 111.6 kg (246 lb) | BMI 39.71 kg/m | BSA 2.28 m General: No acute distress. A+Ox3. HEENT: Normocephalic. Atraumatic. Conjunctiva and sclera clear. NECK: No carotid bruits. No JVD. Carotid upstrokes are brisk. Heart: RRR. S1 and S2 noted without murmur, rubs, gallops. Lungs: Clear to auscultation. No wheezes, rhonchi, rales. Abdomen: Normal bowel sounds. Soft. Nontender. No masses or organomegaly. No abdominal bruits. Extremities: No edema. No clubbing or cyanosis. Pulses: radial=2/4, posterior tibial=2/4, dorsalis pedis = 2/4. NEURO: No focal deficits. PSYCH: Normal. Lab data/imaging study review: BARBARA at [facility] with Dr. Villegas 2D echo [facility] report 12/12/2022: Mild concentric left ventricular hypertrophy. [...] malformation in the major intracranial arteries. Impression/Plan: Patient care was discussed/coordinated with Dr. Penny. Please refer to above for full plan of care. 1. Cerebral infarction, unspecified mechanism (HCC) 2. 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 Patient would like to consider her options to have the PFO closed and will reach out to the valve clinic team with her decision. The patient agrees to the above plan and will call with additional questions or concerns. ER with all emergencies advised. Check-out note: Valve clinic to arrange follow-up/testing. I spent a total of 60 minutes on the date of service in preparation, delivery, and documentation ofthe care provided to Leona Clark excluding any time spent in the performance of separately billed services. ELIZABET Valadez [facility], Department of Cardiology This chart was completed in part utilizing [employer] Speech Voice Recognition Software. Grammatical errors, random [...] documented in this encounter Nursing Notes * Donald Doty, VALENTINA - 11/05/2023 10:43 AM EST Examination Room: room 11 Name: Leona Clark Date of : (1985). Reason for Visit: for follow up Interim Hospitalization(s): denies Problems/Concerns: denies Chest Pain/SOB: occ gets some mid sternum chest discomfort [facility] Discussed: Not applicable [...] Description 12/22/2023 10:45 AM EDT Imaging Radiology [address] [place] [address] 12/26/2023 10:00 AM EDT Office Visit [facility] [address] Shayla Sandoval MD [address] [facility] [place] [address] 03/23/2024 10:30 AM EDT Imaging Radiology [facility] [address] [place] [address] 06/29/2024 2:00 PM EDT Office Visit Gynecology/Obstetrics [facility] [address] [place] [address] BackerAnais CRNP [address] [place] [address] Health Maintenance Due Date Last Done Comments [...] defect documented in this encounter Care Teams Diamond Die Maker Relationship Specialty Start Date End Date Maribell Katz DO [address] [place] [address] PCP - General Family Medicine 02/26/23 documented as of this encounter
--- OUTSIDE RECORDS SUMMARY | 2024-03-05 00:39 | External Medical Summary ---
Author Name Unknown Address Unknown Organization K01:[facility] [place] [facility] [address] [facility] [address] Laboratory Report Ordering Provider Test Date Status LENNIE GONZALEZ 11/05/2023 11:31:00 Final Observation Date Value Abnormality Reference (Units ) Status Triglyceride 11/05/2023 11:31:00 44 <=174 ( mg/dL) Final Triglyceride Reference Range s (mg/dL):
<150 Acceptable
150-174 Borderline high
175-499 High
>=500 Very high Cholesterol 11/05/2023 11:31:00 185 <200 (mg /dL) Final Total Cholesterol Reference Ranges (mg/dL):
<200 Desirable
200-239 Borderline high
>=240 High HDL 11/05/2023 11:31:00 49 Below low normal >49 (mg/dL) Final HDL Cholesterol Reference Ra nges (mg/dL):
>=60 High (Desirable)
<50 Low (Undesirable) For Females
<40 Low (Undesirable) For Males NON-HDL CHOLESTEROL 11/05/2023 11:31:00 136 <=159 (mg/dL) Final Non-HDL Cholesterol Referenc e Range (mg/dL):
<100 Target level for high risk ASCVD patient
<130 Optimal for general population
130-159 Near optimal for general population
160-189 Borderline High
190-219 High
>=220 Very High LDL, (calculated) 11/05/2023 11:31:00 127 <= 129 (mg/dL) Final LDL Cholesterol Reference Ra nges (mg/dL):
<70 Target level for high risk ASCVD patient
<100 Optimal for general population
100-129 Near optimal for general population
130-159 Borderline high
160-189 High
>=190 Very high Performing Location LAB[facility]ATORY [facility] [place] - [address] [facility] [address]
--- OUTSIDE RECORDS SUMMARY | 2024-03-05 00:39 | External Medical Summary | Summary of Care ---
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) Procedures PROTHROMBIN (FACTOR II) GENE MUTATION, PCR Shayla Sandoval MD [address] [facility] [place] [address] Referral ID Status Reason Start Date Expiration Date V isits Requested Visits Authorized [id number] Authorized Precert 09/15/2023 01/07/2024 999 [id number] Encounter Details Date Type Department Care Team (Late st Contact Info) Description 09/25/2023 12:50 PM EST Laboratory Laboratory, [facility] 132 [facility] [place] [phone] [facility] [address] [facility] [place] [address] Partial symptomatic epilepsy with complex partial seizures, [...] and proper diet. Consider referral to a distillery laborer prior to conception for maternal conditions that [...] mRNA, LNP-s, No Pre serve, 2-Dose Series ([employer]) 10/28/2021,03/23/2021,01/03/2021 Hepatitis B Vaccine, Recombi nant, Adjuvanted, [...] 10/02/2023 10:00 AM EST Office Visit Cardiology, [facility] [address] [place] [address] Anita Dennis CRNP [address] [place] [address] 12/22/2023 10:45 AM EDT Imaging Radiology [facility] 1st [facility] [place] [address] [place] [address] 12/26/2023 10:00 AM EDT Office Visit Neurology [facility] [address] [place] [address] Shayla Sandoval MD [address] [place] [address] 03/23/2024 10:30 AM EDT Imaging Radiology [facility] [address] [place] [address] 06/29/2024 2:00 PM EDT Office Visit Gynecology/Obstetrics [facility] [address] [place] [address] Anais Liu CRNP [address] [place] [address] Pending Results Name Type Priority Associated Diagnoses Date /Time LEVETIRACETAM LEVEL Lab Routine Partial symptomatic epilepsy with complex partial seizures, not intractable, without status epilepticus ([facility]) 09/25/2023 12:54 PM EST PROTHROMBIN (FACTOR II) GENE MUTATION, PCR Lab Routine Embolic stroke involving right middle cerebral artery ([facility]) 09/25/2023 12:54 PM EST FACTOR V (5) LEIDEN MUTATION ANALYSIS, PCR Lab Routine Embolic stroke involving right middle cerebral artery ([facility]) 09/25/2023 12:54 PM EST LUPUS ANTICOAGULANT PROFILE WITH INTERPERTATION BY PATHOLOGIST Lab Routine Cerebral infarction, unspecified mechanism ([facility]) 09/25/2023 12:54 PM EST PROTEIN C ANTIGEN Lab Routine Cerebral infarction, unspecified mechanism ([facility]) 09/25/2023 12:54 PM EST PROTEIN S ACTIVITY WITH ANTIGEN REFLEX Lab Routine Cerebral infarction, unspecified mechanism ([facility]) 09/25/2023 12:54 PM EST ANTITHROMBIN III ACTIVITY Lab Routine Cerebral infarction, unspecified mechanism (HCC) 09/25/2023 12:54 PM EST LUPUS SENSITIVE APTT [...] (HCC) documented in this encounter Care Teams Breading Machine Tender Relationship Specialty Start Date End Date Maribell Salinas DO [address] [place] [address] PCP - General Family Medicine 02/26/23 documented as of this encounter
--- OUTSIDE RECORDS SUMMARY | 2024-03-05 00:39 | External Medical Summary ---
Author Name Unknown Address Unknown Organization K01:[facility] [place] - [facility] [address] [facility] [address] Laboratory Report Ordering Provider Test Date Status GABRIELA PALOMINO 09/25/2023 12:54:15 Final Observation Date Value Abnormality Reference (Units) Status Prothrombin Gene 09/25/2023 12:54:15 Not Detected Not Detected Final Molecular diagnostic overall interpretation [Presence] in Blood or Tissue by Molecular genetics method 09/25/2023 12:54:15 The [id number] ([id number]) variant in the Prothrombin (F2) gene was not detected by real-time PCR. Final Additional comments [RFC] 09/25/2023 12:54:15 The assay was verified and performance characteristics determined by the Molecular Diagnostics Laboratory at [facility]. This test is used for clinical purposes. Final Additional comments [RFC] 09/25/2023 12:54:15 Ref: 1. Sundeep FR, Luigi PH. Genetics of Venous Thrombosis. J of Thrombosis and Haemostasis 2009; 7(Suppl. 1): 301-304. Final Additional comments [RFC] 09/25/2023 12:54:15 2. Cary WM, Tyson JL, Jimmie NJ, et al. Selective Testing for Thrombophilia in Patients with First Venous Thrombosis: Results from a Retrospective Family Cohort Study on Absolute Thrombotic Risk for Currently Known Thrombophilic Defects in 2479 Relatives. Blood. 2009;113:5314-22. Final Additional comments [RFC] 09/25/2023 12:54:15 Final Additional comments [RFC] 09/25/2023 12:54:15 Final Pathologist review of results 09/25/2023 12:54:15 Dr. Lambert Knight Final Performing Location LABORATORY [place] [address] [facility] [address]
--- OUTSIDE RECORDS SUMMARY | 2024-03-05 00:39 | External Medical Summary ---
Author Name Unknown Address Unknown Organization K01:[facility] [place] - [address] [place] [address] Laboratory Report Ordering Provider Test Date Status DOLLY GRAHAM 09/25/2023 12:54:15 Final Observation Date Value Abnormality Reference (Units ) Status dRVVT induced actual/Normal 09/25/2023 12:54:15 0.87 <=1.20 Final Lupus Anticoagulant not dete cted. Performing Location LABORATORY [facility] - [address] [place] [address]
--- OUTSIDE RECORDS SUMMARY | 2024-03-05 00:39 | External Medical Summary ---
Author Name Unknown Address Unknown Organization K0G:LABORATORY [place] [address] - [address] [place] [address] Laboratory Report Ordering Provider Test Date Status JACQUELYN PATRICK 11/11/2023 11:33:29 Final Observation Date Value Abnormality Reference (Units ) Status Albumin 11/11/2023 11:33:29 4.4 3.8-5.0 (g/dL) Final AST (Aspartate aminotransferase) 11/11/2023 11:33:29 20 10-35 (U/L) Final Alk Phos 11/11/2023 11:33:29 65 35-130 (U/L) Final ALT (Alanine aminotransferase) 11/11/2023 11:33:29 28 10-35 (U/L) Final Bilirubin, Total 11/11/2023 11:33:29 0.5 <=1.2 (mg/dL) Final Bilirubin, Direct 11/11/2023 11:33:29 <0.2 0.0-0.3 (mg/dL) Final Protein 11/11/2023 11:33:29 7.2 6.0-8.3 (g/dL) Final Performing Location LABORATORY [place] [address] - [address] [place] [address]
--- OUTSIDE RECORDS SUMMARY | 2024-03-05 00:39 | External Medical Summary ---
Author Name Unknown Address Unknown Organization K01:LABORATORY [place] [address] [place] [address] Laboratory Report Ordering Provider Test Date Status DOLLY GRAHAM 09/25/2023 12:54:15 Final Anticardiolipin / beta-2 gly coprotein antibodies must be detected on 2 or more occasions at least 12 weeks apart to fulfill the laboratory diagnostic criteria for Antiphospholipid Syndrome. Observation Date Value Abnormality Reference (Units ) Status Cardiolipin IgM Ab [Presence] in Serum by Immunoassay 09/25/2023 12:54:15 Negative Negative Final Cardiolipin IgM Ab [Units/volume] in Serum by Immunoassay 09/25/2023 12:54:15 1.8 <10 (MPL U/mL) Final Performing Location LABORATORY [place] [address] [place] [address]
--- OUTSIDE RECORDS SUMMARY | 2024-03-05 00:39 | External Medical Summary | Summary of Care ---
Author Name Unknown Organization [facility] Address [address] [place] [address] Phone [phone] Care Team Providers Care Senior J2Ee Developer Name Role Phone Maribell Salinas DO Primary Care Provider [phone] Reason for Visit * Reason Comments Outpatient Testing Encounter Details Date Type Department Care Team (Late st Contact Info) Description 11/05/2023 8:40 AM EST Laboratory Laboratory, [facility] [place] [phone] [facility] [address] [place] [address] Embolic stroke involving right middle cerebral artery (HCC) Allergies No known active allergiesdocumented as [...] and proper diet. Consider referral to a carpenter's assistant prior to conception for maternal conditions that [...] mRNA, LNP-s, No Pre serve, 2-Dose Series ([employer]) 10/28/2021,03/23/2021,01/03/2021 Hepatitis B Vaccine, Recombi nant, Adjuvanted, [...] Description 12/22/2023 10:45 AM EDT Imaging Radiology [facility] [address] [place] [address] 12/26/2023 10:00 AM EDT Office Visit Neurology [facility] [address] [place] [address] Shayla Sandoval MD [address] [place] [address] 03/23/2024 10:30 AM EDT Imaging Radiology [facility] [place] [address] 06/29/2024 2:00 PM EDT Office Visit Gynecology/Obstetrics [address] [place] [address] Alexa AnaisELIZABET Dacosta [address] [place] [address] Pending Results Name Type Priority Associated Diagnoses Date /Time HEPATIC FUNCTION PANEL Lab Routine Embolic stroke involving right middle cerebral artery (HCC) 11/05/2023 11:31 AM EST LIPID PANEL WITH DIRECT LDL IF TG IS HIGH Lab Routine Embolic stroke involving right middle cerebral artery (HCC) 11/05/2023 11:31 AM EST Health Maintenance Due Date Last [...] as of this encounter Visit Diagnoses Diagnosis Embolic stroke involving right middle cerebral artery (HCC) Cerebral embolism with cerebral infarction documented in this encounter Care Teams Senior J2Ee Developer Relationship Specialty Start Date End Date Maribell Salinas DO [address] [place] [address] PCP - General Family Medicine 02/26/23 documented as of this encounter
--- OUTSIDE RECORDS SUMMARY | 2024-03-05 00:39 | External Medical Summary ---
Author Name Unknown Address Unknown Organization K01:LABORATORY [facility] [place] - [address] [place] [address] Laboratory Report Ordering Provider Test Date Status DOLLY GRAHAM 09/25/2023 12:54:15 Final Observation Date Value Abnormality Reference (Units ) Status aPTT.lupus sensitive actual/normal (normalized [place] screen) 09/25/2023 12:54:15 1.29 0.91-1.40 Final Lupus Anticoagulant not dete cted. Performing Location LABORATORY [facility] [place] - [address] [place] [address]
--- OUTSIDE RECORDS SUMMARY | 2024-03-05 00:40 | External Medical Summary | Summary of Care ---
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 (HCC) Procedures FACTOR V (5) LEIDEN MUTATION ANALYSIS, PCR Shayla Sandoval MD [address] [facility] [place] [address] Referral ID Status Reason Start Date Expiration Date V isits Requested Visits Authorized [id number] Authorized Precert 09/15/2023 01/07/2024 999 999 * Precert (Within 10 days (routine)) - Authorized Specialty Diagnoses / Procedures Referred By Contac t Referred To Contact Laboratory Diagnoses Embolic stroke involving right middle cerebral artery (HCC) Procedures PROTHROMBIN (FACTOR II) GENE MUTATION, PCR Shayla Sandoval MD [address] [facility] [place] [address] Referral ID Status Reason Start Date Expiration Date V isits Requested Visits Authorized [id number] Authorized Precert 09/15/2023 01/07/2024 999 999 Reason for Visit * Reason Onset Date Comments Lab Draw Only 09/08/2023 Encounter Details Date Type Department Care Team (Late st Contact Info) Description 09/08/2023 Telephone Neurology [facility] [place] [address] [facility] [place] [address] Shayla Sandoval MD [address] [facility] [place] [address] Lab Draw Only Allergies No known active allergiesdocumented as of this encounter (statuses as of 09/09/2023) Medications Medication Sig Dispensed Refills Start Date [...] as of this encounter (statuses as of 09/09/2023) Active Problems Problem Noted Date Diagnosed Date Partial symptomatic epilepsy with complex partial seizures, not intractable, without status epilepticus 02/26/2023 PFO (patent foramen ovale) 02/26/2023 Embolic stroke involving right middle cerebral a rtery 02/26/2023 Chronic viral hepatitis B wi thout delta agent and without coma 01/02/2023 New onset seizure 12/27/2022 Interatrial cardiac shunt 12/27/2022 Cerebral infarction 12/27/2022 Hiatal hernia 03/19/2022 Overview: Seen on EGD 03/2022 documented as of this encounter (statuses as of 09/09/2023) Immunizations Name Administration Dates Next Due COVID-19 [...] encounter Miscellaneous Notes * Telephone Encounter - Crista Moreno OSA - 09/09/2023 11:05 AM EST Sent myg * Telephone Encounter - Shayla Sandoval MD - 09/08/2023 2:06 PM EST TELL PATIENT THAT I HAVE REORDERED THE LAB THAT DISCUSSED. SHE SHOULD WAIT 2 WEEKS TO HAVE IT DONE * Telephone Encounter - Shayla Sandoval MD - 09/08/2023 2:06 PM EST ----- Message from ENMANUEL Scott sent at 08/29/2023 10:52 AM EST ----- The orders were discontinued. You will have to place new ones ----- Message ----- From: Shayla Sandoval MD Sent: 08/29/2023 10:34 AM EST To: Crista ENMANUEL Shah I had ordered factor v and prothrombin gene mutation. Unclear if it was approved or denied by insurance. Can you look in to it. documented in this encounter Plan of Treatment Upcoming Encounters Date Type Department Care Team (Late st Contact Info) Description 12/26/2023 10:00 AM EDT Office Visit Neurology [facility] [place] [address] [facility] [place] [address] Shayla Sandoval MD [address] [place] [address] 06/29/2024 2:00 PM EDT Office Visit Gynecology/Obstetrics [facility] [address] [place] [address] Anais Liu CRNP [address] [place] [address] Scheduled Orders Name Type Priority Associated Diagnoses Orde r Schedule PROTHROMBIN (FACTOR II) GENE MUTATION, PCR Lab Routine Embolic stroke involving right middle cerebral artery (HCC) Expected: 09/15/2023, Expires: 11/27/2023 FACTOR V (5) LEIDEN MUTATION ANALYSIS, PCR Lab Routine Embolic stroke involving right middle cerebral artery (HCC) Expected: 09/15/2023, Expires: 11/27/2023 Health Maintenance Due Date Last Done Comments [...] Embolic stroke involving right middle cerebral artery (HCC)- Primary Cerebral embolism with cerebral infarction documented in this encounter Care Teams Casino Floor Person Relationship Specialty Start Date End Date Maribell Salinas DO [address] [place] [address] PCP - General Family Medicine 02/26/23 documented as of this encounter
--- OUTSIDE RECORDS SUMMARY | 2024-03-05 00:40 | External Medical Summary | Summary of Care ---
Author Name Unknown Organization [facility] Address [address] [place] [address] Phone [phone] Care Team Providers Care Media Services Coordinator Name Role Phone Rita Maribellkirby Don DO Primary Care Provider [phone] Reason for Referral * Precert (Within 10 days (routine)) - Authorized Specialty Diagnoses / Procedures Referred By Contac t Referred To Contact Laboratory Diagnoses Embolic stroke involving right middle cerebral artery (HCC) Procedures FACTOR V (5) LEIDEN MUTATION ANALYSIS, PCR Shayla Sandoval MD [address] [facility] [place] [address] Referral ID Status Reason Start Date Expiration Date V isits Requested Visits Authorized [id number] Authorized Precert 09/15/2023 01/07/2024 999 999 * Precert (Within 10 days (routine)) - Authorized Specialty Diagnoses / Procedures Referred By Contac t Referred To Contact Laboratory Diagnoses Embolic stroke involving right middle cerebral artery (HCC) Procedures PROTHROMBIN (FACTOR II) GENE MUTATION, PCR Shayla Sandoval MD [address] [facility] [place] [address] Referral ID Status Reason Start Date Expiration Date V isits Requested Visits Authorized [id number] Authorized Precert 09/15/2023 01/07/2024 999 999 Encounter Details Date Type Department Care Team (Late st Contact Info) Description 09/08/2023 Telephone Neurology [place] [address] [facility] [place] [address] Shayla Sandoval MD [address] [facility] [place] [address] Allergies No known active allergiesdocumented as of this encounter (statuses as of 09/08/2023) Medications Medication Sig Dispensed Refills Start Date [...] as of this encounter (statuses as of 09/08/2023) Active Problems Problem Noted Date Diagnosed Date [...] as of this encounter (statuses as of 09/08/2023) Immunizations Name Administration Dates Next Due COVID-19 [...] MD Sent: 08/29/2023 10:34 AM EST To: ENMANUEL Scott I had ordered factor v and prothrombin gene mutation. Unclear if it was approved or denied by insurance. Can you look in to it. documented in this encounter Plan of Treatment Upcoming Encounters Date Type Department Care Team (Late st Contact Info) Description 12/26/2023 10:00 AM EDT Office Visit Neurology [facility] [address] [facility] [place] [address] Shayla Sandoval MD [address] [facility] [place] [address] 06/29/2024 2:00 PM EDT Office Visit Gynecology/Obstetrics [facility] [address] [place] [address] Anais Liu CRNP [address] [place] [address] Scheduled Orders Name Type Priority Associated Diagnoses [...] infarction documented in this encounter Care Teams Media Services Coordinator Relationship Specialty Start Date End Date Maribell Salinas DO [address] [place] [address] PCP - General Family Medicine 02/26/23 documented as of this encounter
--- OUTSIDE RECORDS SUMMARY | 2024-03-05 00:40 | External Medical Summary ---
Author Name Unknown Address Unknown Organization K01:[facility] - [address] [place] [place] [address] Laboratory Report Ordering Provider Test Date Status DOLLY GRAHAM 09/25/2023 12:54:15 Final Observation Date Value Abnormality Reference (Units ) Status Protein C actual/normal in Platelet poor plasma by Chromogenic method 09/25/2023 12:54:15 96 75-135 (%) Final Performing Location [facility] - [address] [place] [address]
--- OUTSIDE RECORDS SUMMARY | 2024-03-05 00:40 | External Medical Summary ---
Author Name Unknown Address Unknown Organization : Laboratory Report Ordering Provider Test Date Status DOLLY GRAHAM 09/25/2023 12:54:15 Final Observation Date Value Abnormality Reference (Units ) Status Protein C Ag 09/25/2023 12:54:15 83 70-140 (% normal) Final
Test Performed at:
[facility]
[id number]
[place] [address]
Aamir Yung M.D., Ph.D.,Director of Laboratories Performing Location
--- OUTSIDE RECORDS SUMMARY | 2024-03-05 00:40 | External Medical Summary | Summary of Care ---
Author Name Unknown Organization [facility] Address [address] [place] [address] Phone [phone] Care Team Providers Care Scale Assembly Set Up Worker Name Role Phone Maribell Salinas Florencia ROPER Primary Care Provider [phone] Reason for Referral * Evaluate & Treat - Unlimited Visits (Within 10 days (routine)) - Pending Review Specialty Diagnoses / Procedures Referred By Jenifer siegel Referred To Contact Cardiovascular Medicine / Cardiology Diagnoses Cerebral infarction, unspecified mechanism (HCC) PFO with atrial septal aneurysm Sue Ortiz DO [address] [place] [address] Referral ID Status Reason Start Date Expiration Date Visits Requested Visits Authorized [id number] Pending Review Specialty Services Required 09/16/[phone] Question Answer Referral Priority Within 10 days (routine) Where should this appointment be scheduled? [facility] To which of the following clinics are you referring your patient? General Cardiology Clinic Comments PFO-related stroke, considering . Please assess if PFO closure is indicated to decrease risk of recurrence. Reason for Visit * Evaluate & Treat - Unlimited Visits (Within 30 days (routine)) - Authorized Specialty Diagnoses / Procedures Referred By Jenifer siegel Referred To Contact Obstetrics/Gynecology / Maternal Medicine Diagnoses Embolic stroke involving right middle cerebral artery (HCC) Shayla Sandoval MD [address] [place] [address] Referral ID Status Reason Start Date Expiration Date Visits Requested Visits Authorized [id number] Authorized Specialty Services Required 09/12/2023 09/12/[phone] Encounter Details Date Type Department Care Team (Latest Contact Info) Description 09/16/2023 1:00 PM EST Telemedicine Contract Runner Obstetrics Maternal Medicine, [place] [address] [place] [address] Sue Ortiz, [address] [place] [address] Cerebral infarction, unspecified mechanism (HCC)*; PFO with atrial septal aneurysm; Chronic hepatitis B (HCC); Seizures (HCC); Encounter for preconception consultation; Antepartum multigravida of advanced maternal age; Obesity, Class III, BMI 40-49.9 (morbid obesity) (HCC); PFO (patent foramen ovale) Allergies No known active allergiesdocumented as of this encounter (statuses as of 09/18/2023) Medications Medication Sig Dispensed Refills Start Date [...] as of this encounter (statuses as of 09/18/2023) Active Problems Problem Noted Date Diagnosed Date [...] and proper diet. Consider referral to a mini shifter prior to conception for maternal conditions that [...] as of this encounter (statuses as of 09/18/2023) Immunizations Name Administration Dates Next Due COVID-19 mRNA, LNP-s, No Pre serve, 2-Dose Series ([facility]) 10/28/2021,03/23/2021,01/03/2021 Hepatitis B Vaccine, Recombi nant, Adjuvanted, [...] as of this encounter Progress Notes * Sue Ortiz DO - 09/17/2023 9:28 PM EST MATERNAL MEDICINE CONSULT Leona Clark 09/17/23 REFERRING PROVIDER: Shayla Gipson DO Patient location: HOME. I was in a hospital or clinic location. After connecting through televideo,patient was verified with two unique identifiers. Patient (or authorized legal care support representative) was then informed that this was a Telemedicine visit and being conducted confidentially over secure lines. Methods to assure confidentiality were taken. Patient acknowledged consent and understanding of pr ivacy and security of the Telemedicine visit. The patient agreed to participate. Leona Clark is a 37 year old who presents today for a MFM preconception consult. HPI: Problem List Preconception counseling Currently has paraguard IUD in place. Cerebral infarct 12/2022: presented to the ED with seizure like activity. MRI of the brain showed right sided encephalomalacia consistent with prior ischemia (however unclear timing), CTA of the head and neck were unremarkable, TTE showed a small interatrial shunt consistent with PFO. Has been managed with low dose aspirin, Keppra (transitioning to lamictal due to side effects) and a statin. Seizures Follows with Neurology. Currently transitioning from Keppra to Lamictal due to side effects. Seizures felt to be related to area of prior stroke. Advanced maternal age Obesity, class III Hepatitis B Component Latest Ref Rng 04/14/2023 Hepatitis B Virus DNA IU/mL <10 IU/mL 257 Hepatitis B Virus DNA Log (IU/mL) <1.00 Log (IU/mL) 2.41 Hepatitiis BE Antigen Nonreactive Patent foramen ovale I have reviewed this patient's previous OB ultrasound reports, pertinent labwork and testing provided by her referring OB provider. Current Outpatient Medications Medication Sig Dispense Refill Aspirin 81 MG Oral Tablet Delayed Release Take 1 Tablet by mouth in the morning. 90 Tablet 1 Atorvastatin Calcium 40 MG Oral Tablet (Lipitor) [...] to 100 mg tabs 32 Tablet 0 levETIRAcetam ER 500 MG Oral Tablet Extended Release 24 Hour (Keppra XR) Take 2 at bedtime 60 Tablet 5 Multivitamin Adult Oral Tablet Take by mouth . Paragard Intrauterine Copper Intrauterine Intrauterine Device Insert 1 Each into uterus once. No current facility-administered medications for this visit. Review of patient's allergies indicates: No Known Allergies OB History Para Term AB Living 4 3 3 1 3 SAB IAB Ectopic Multiple Live Births 3 # Outcome Date GA Lbr Matt/2nd Weight Sex Delivery Anes PTL Lv 4 Term 2018 3.7 kg (8 lb 2.5 oz) F CS-LTranv 3 AB 2017 AB, SP, 1 2 Term 2014 3.2 kg (7 lb 0.9 oz) F CS-LTranv 1 Term 2012 3.1 kg (6 lb 13.4 oz) M Vag-Spont KEYA Comments: shoulder dystocia, brachial plexus injury Obstetric Comments 38yo, Past Medical History: Diagnosis Date Chronic viral [...] performed by Tommie Vásquez MD at [facility] Family History Problem Relation Age of Onset No Known Problems Mother No Known Problems Father Autism Son Social History Tobacco Use Smoking status: Never Smokeless tobacco: Never Vaping Use Vaping Use: Never used Substance Use Topics Alcohol use: Never Drug use: Never REVIEW OF SYSTEMS: negative PHYSICAL EXAM: General: Well appearing Psych: Alert to time, place, and person DISCUSSION/RECOMMENDATIONS: Problem List Items Addressed This Visit Circulatory PFO (patent foramen ovale) Digestive Chronic hepatitis B (HCC) (Chronic) Discussed that in general, does not appear to alter the course of chronic hepatitis B infection. Reactivation of the virus and exacerbation of the disease during or after gestation are uncommon. Additionally, hepatitis B infection does not increase the risk for obstetric complications or t eratogenicity. Explained that the placenta forms an excellent [...] cause further liver damage in higher doses. Obesity, Class III, BMI 40-49.9 (morbid obesity) (HCC) (Chronic) DISCUSSION: 1. Discussed preconception and early risks in setting obesity, including subfertility, PCOS, CHTN, diabetes and miscarriage 2. Weight loss can improve ovulatory function and conception rates 3. Discussed obstetrical risks associated with class III obesity (pre- BMI of greater than or equal to 40) including increased incidence of: spontaneous miscarriage, recurrent loss,diabetes in , hypertension/preeclampsia, IUFD, macrosomia and shoulder dystocia, post hemorrhage or infection, venous thromboembolism, increased length of labor and delivery, complications with anesthesia, as well as a possibly increased risk of congenital anomalies (neural tube defects, cardiovascular, orofacial). 4. Reviewed that the accuracy of ultrasound at diagnosing anomalies is significantly decreased for women with an increased BMI. RECOMMENDATIONS: 1. Recommend weight loss of at least 5-10% for optimizing fertility/reproductive functioning and todecrease risks to future (described above) 2. Consider referral to medically supervised weight management program and/or bariatric surgery Musculoskeletal and Integumentary Cerebral infarction (HCC) - Primary (Chronic) DISCUSSION: increases the risk of stroke with the incidence of stroke in ranging from 4.3 -210 strokes/100,000 deliveries. Also reviewed the increased risk [...] need to stop statin therapy with . Relevant Orders CARDIOLOGY REFERRAL OP LUPUS ANTICOAGULANT PROFILE WITH INTERPERTATION BY PATHOLOGIST PROTEIN C ANTIGEN PROTEIN S ACTIVITY WITH ANTIGEN REFLEX ANTITHROMBIN III ACTIVITY Nervous and Auditory Seizures (HCC) (Chronic) CONSIDERATIONS: Most women will have no alteration of their seizure pattern during . Potential risks to a can be minimized by preconception planning and careful management with anti-epileptic drugs during . Discussed that the overall rate of congenital abnormalities associated with maternal intake of AEDsis 6-8%, but there is no clear data indicating that any drug is without or has less risk in . It is therefore suggested that patients planning should be managed on the most effective anti- epileptic medications for their seizures. Monotherapy and the lowest possible drug dose may limit risk of teratogenicity. Recommend patient be monitored and medication managed/titrated by neurology throughout and period. Lamictal - Possible increased risk for oral clefting (<1%), however this has not been confirmed in large studies. May require dose adjustments during , therefore recommend monitoring withprescribing provider. Lamictal is secreting in breast milk, but at acceptable levels. While most infants do not have side effects, patients should monitor infants for trouble breathing, sleepiness, poor sucking or rash. Other Encounter for preconception consultation DISCUSSION: 1. Explained that the goal of pre-conception care is to identify and modify medical, behavioral andsocial risks to a woman's health or outcome through prevention and management. A multi-disciplinary care approach may be indicated specific to the patient's medical problems. 2. Discussed patient's and partners family history of heritable genetic disorders. RECOMMENDATIONS: [...] and proper diet. Consider referral to a mini shifter prior to conception for maternal conditions that may adversely affect maternal nutritional status including obesity, diabetes, history of gastric bypass, hypertensive disorders, underweight and/or historyof gastrointestinal or eating disorders. Advise regular physical activity for 30-60 minutes/day for5 or more days per week. 4. A [...] recommendations (cystic fibrosis, spinal muscular atrophy, and hemoglobinopathies).Patient is aware that both her and her partner need to be carriers of a recessive condition to havea child that is affected, the risk of an affected child would be 25%. 6. Recommend patient seek early care once is confirmed. AMA (advanced maternal age) multigravida 35+ CONSIDERATIONS: We reviewed the most pertinent aspects [...] at MEET require additional surveillance during . Other Visit Diagnoses PFO with atrial septal aneurysm Relevant Orders CARDIOLOGY REFERRAL OP Patient aware that she does have any absolute contraindications to a pregnancies, but does have multiple risk factors for poor outcomes (maternal and ) including stroke, obesity, AMA. Sue Ortiz DO 09/17/2023 9:28 PM Late entry for encounter on 09/16/23. I have discussed the patient's management with the medical trainee and agree with the note. Please refer to the documented findings and plan of care. This patient's visit today consisted of a telemedicine visit using real time audio/video technology. I personally interacted with the patient via this technology and confirmed the findings as documented. Couple eager for another ; while notcontraindicated they are aware of potential for maternal or poor outcome based on maternal medical history. Questions answered. Aicha Cazares DO documented in this encounter Miscellaneous Notes * Assessment & Plan Note - Sue Ortiz DO - 09/17/2023 9:26 PM ESTAssociated Problem(s): Obesity, Class III, BMI 40-49.9 (morbid obesity) (HCC) DISCUSSION: 1. Discussed preconception and early risks in setting obesity, including subfertility, PCOS, CHTN, diabetes and miscarriage 2. Weight loss can improve ovulatory function and conception rates 3. Discussed obstetrical risks associated with class III obesity (pre- BMI of greater than or equal to 40) including increased incidence of: spontaneous miscarriage, recurrent loss,diabetes in , hypertension/preeclampsia, IUFD, macrosomia and shoulder dystocia, post hemorrhage or infection, venous thromboembolism, increased length of labor and delivery, complications with anesthesia, as well as a possibly increased risk of congenital anomalies (neural tube defects, cardiovascular, orofacial). 4. Reviewed that the accuracy of ultrasound at diagnosing anomalies is significantly decreased for women with an increased BMI. RECOMMENDATIONS: 1. Recommend weight loss of at least 5-10% for optimizing fertility/reproductive functioning and todecrease risks to future (described above) 2. Consider referral to medically supervised weight management program and/or bariatric surgery * Assessment & Plan Note - Sue Ortiz DO - 09/17/2023 9:25 PM ESTAssociated Problem(s): AMA (advanced maternal age) multigravida 35+ CONSIDERATIONS: We reviewed the most pertinent aspects [...] at MEET require additional surveillance during . * Assessment & Plan Note - Sue Ortiz DO - 09/17/2023 9:24 PM ESTAssociated Problem(s): Encounter for preconception consultation DISCUSSION: 1. Explained that the goal of pre-conception care is to identify and modify medical, behavioral andsocial risks to a woman's health or outcome through prevention and management. A multi-disciplinary care approach may be indicated specific to the patient's medical problems. 2. Discussed patient's and partners family history of heritable genetic disorders. RECOMMENDATIONS: [...] and proper diet. Consider referral to a mini shifter prior to conception for maternal conditions that may adversely affect maternal nutritional status including obesity, diabetes, history of gastric bypass, hypertensive disorders, underweight and/or historyof gastrointestinal or eating disorders. Advise regular physical activity for 30-60 minutes/day for5 or more days per week. 4. A [...] recommendations (cystic fibrosis, spinal muscular atrophy, and hemoglobinopathies).Patient is aware that both her and her partner need to be carriers of a recessive condition to havea child that is affected, the risk of an affected child would be 25%. 6. Recommend patient seek early care once is confirmed. * Assessment & Plan Note - Sue Ortiz DO - 09/17/2023 9:23 PM ESTAssociated Problem(s): Seizures (HCC) CONSIDERATIONS: Most women will have no alteration of their seizure pattern during . Potential risks to a can be minimized by preconception planning and careful management with anti-epileptic drugs during . Discussed that the overall rate of congenital abnormalities associated with maternal intake of AEDsis 6-8%, but there is no clear data indicating that any drug is without or has less risk in . It is therefore suggested that patients planning should be managed on the most effective anti- epileptic medications for their seizures. Monotherapy and the lowest possible drug dose may limit risk of teratogenicity. Recommend patient be monitored and medication managed/titrated by neurology throughout and period. Lamictal - Possible increased risk for oral clefting (<1%), however this has not been confirmed in large studies. May require dose adjustments during , therefore recommend monitoring withprescribing provider. Lamictal is secreting in breast milk, but at acceptable levels. While most infants do not have side effects, patients should monitor infants for trouble breathing, sleepiness, poor sucking or rash. * Assessment & Plan Note - Sue Ortiz DO - 09/16/2023 4:26 PM ESTAssociated Problem(s): Chronic hepatitis B (HCC) Discussed that in general, does not appear to alter the course of chronic hepatitis B infection. Reactivation of the virus and exacerbation of the disease during or after gestation are uncommon. Additionally, hepatitis B infection does not increase the risk for obstetric complications or t eratogenicity. Explained that the placenta forms an excellent [...] cause further liver damage in higher doses. * Assessment & Plan Note - Sue Ortiz DO - 09/16/2023 4:22 PM ESTAssociated Problem(s): Cerebral infarction (HCC) DISCUSSION: increases the risk of stroke with the incidence of stroke in ranging from 4.3 -210 strokes/100,000 deliveries. Also reviewed the increased risk [...] need to stop statin therapy with . documented in this encounter Plan of Treatment Upcoming Encounters Date Type Department Care Team (Late st Contact Info) Description 12/26/2023 10:00 AM EDT Office Visit Neurology [facility] Lizzette Jorgensen [address] [place] [address] Shayla Sandoval MD [address] [facility] [place] [address] 06/29/2024 2:00 PM EDT Office Visit Gynecology/Obstetrics [facility] [address] [place] [id number] Anais Liu CRNP [address] [place] [address] Scheduled Orders Name Type Priority Associated Diagnoses Orde r Schedule LUPUS ANTICOAGULANT PROFILE WITH INTERPERTATION BY PATHOLOGIST Lab Routine Cerebral infarction, unspecified mechanism (HCC) 1 Occurrences starting 09/16/2023 until 12/16/2023 PROTEIN C ANTIGEN Lab Routine Cerebral infarction, unspecified mechanism (HCC) 1 Occurrences starting 09/16/2023 until 12/16/2023 PROTEIN S ACTIVITY WITH ANTIGEN REFLEX Lab Routine Cerebral infarction, unspecified mechanism (HCC) 1 Occurrences starting 09/16/2023 until 12/16/2023 ANTITHROMBIN III ACTIVITY Lab Routine Cerebral infarction, unspecified mechanism (HCC) 1 Occurrences starting 09/16/2023 until 12/16/2023 Scheduled Referrals Name Type Priority Associated Diagnoses Orde r Schedule CARDIOLOGY REFERRAL OP Referral Within 10 days (routine) Cerebral infarction, unspecified mechanism (HCC) PFO with atrial septal aneurysm Ordered: 09/16/2023 Health Maintenance Due Date Last Done Comments [...] Cerebral infarction, unspecified mechanism (HCC)- Primary PFO with atrial septal aneurysm Ostium secundum type atrial septal defect Chronic hepatitis B (HCC) Viral hepatitis B without mention of hepatic coma, chronic, without mention of hepatitis delta Seizures (HCC) Other convulsions Encounter for preconception consultation Other procreative management counseling and advice Antepartum multigravida of advanced maternal age Obesity, Class III, BMI 40-49.9 (morbid obesity) (HCC) Morbid obesity PFO (patent foramen ovale) Ostium secundum type atrial septal defect documented in this encounter Care Teams Scale Assembly Set Up Worker Relationship Specialty Start Date End Date Maribell Salinas DO [address] [place] [address] PCP - General Family Medicine 02/26/23 documented as of this encounter
--- OUTSIDE RECORDS SUMMARY | 2024-03-05 00:40 | External Medical Summary ---
Author Name Unknown Address Unknown Organization [id number]:LABORATORY [address] [facility] [address] Laboratory Report Ordering Provider Test Date Status GABRIELA PALOMINO 09/25/2023 12:54:15 Final Observation Date Value Abnormality Reference (Units) Status F5 gene [id number] [Presence] in Blood or Tissue by Molecular genetics method 09/25/2023 12:54:15 Not Detected Not Detected Final Molecular diagnostic overall interpretation [Presence] in Blood or Tissue by Molecular genetics method 09/25/2023 12:54:15 The factor V Leiden (FVL) variant ([id number]; [id number]) in the coagulation Factor V gene was not detected by real-time PCR. Final Additional comments [RFC] 09/25/2023 12:54:15 The assay was verified and performance characteristics determined by the Molecular Diagnostics Laboratory at [facility]. This test is used for clinical purposes. Final Additional comments [RFC] 09/25/2023 12:54:15 Ref: Baldemar WW, Jose L JH, Lisa AK, Enedina BR, Audelia JA; ACMG Factor V Leiden Working Group. [employer] Consensus Statement on Factor V Leiden Mutation Testing. Brittnee Med. 2000-Jan;3(2):139-148. Final Pathologist review of results 09/25/2023 12:54:15 Dr. Lambert Knight Final Performing Location LABORATORY [address] [facility] [address]
--- OUTSIDE RECORDS SUMMARY | 2024-03-05 00:40 | External Medical Summary ---
Author Name Unknown Address Unknown Organization K01:[facility] [place] [address] [place] [address] Laboratory Report Ordering Provider Test Date Status DOLLY GRAHAM 09/25/2023 12:54:15 Final Anticardiolipin / beta-2 gly coprotein antibodies must be detected on 2 or more occasions at least 12 weeks apart to fulfill the laboratory diagnostic criteria for Antiphospholipid Syndrome. Observation Date Value Abnormality Reference (Units ) Status Beta 2 glycoprotein 1 IgM Ab [Presence] in Serum 09/25/2023 12:54:15 Negative Negative Final Beta 2 glycoprotein 1 IgM Ab [Units/volume] in Serum or Plasma by Immunoassay 09/25/2023 12:54:15 <2.4 <7 (U/mL) Final Performing Location LAB[facility]ATORY [place] [address] [place] [address]
--- OUTSIDE RECORDS SUMMARY | 2024-03-05 00:40 | External Medical Summary ---
Author Name Unknown Address Unknown Organization K01:[facility] [place] [address] [facility] [address] Laboratory Report Ordering Provider Test Date Status DOLLY GRAHAM 09/25/2023 12:54:15 Final Anticardiolipin / beta-2 gly coprotein antibodies must be detected on 2 or more occasions at least 12 weeks apart to fulfill the laboratory diagnostic criteria for Antiphospholipid Syndrome. Observation Date Value Abnormality Reference (Units ) Status Cardiolipin IgG Ab [Presence] in Serum by Immunoassay 09/25/2023 12:54:15 Negative Negative Final Cardiolipin IgG Ab [Units/volume] in Serum by Immunoassay 09/25/2023 12:54:15 0.9 <10 (GPL U/mL) Final Performing Location LABORATORY [facility] [place] [address]
[2024-03-05] MEDS ORDERED: LACOSAMIDE 50 MG TABLET PO SCH (09:00)
== END 2024-03-04 17:47 | disposition home or self-care (01) ==
LOC: ED 18:06 → EDINP 03-04 00:40 → INTOOBSV 03-04 00:40 → EDINP 03-04 19:31